=== PATIENT | male | born 1950 | race African-American/Black ===

== ENCOUNTER 2020-07-08 19:41 | Inpatient (IN) | payer BC, MEDICARE ==
[~2020-07-08] VITALS: Ht 167.6 cm; Wt 68.0 kg
[2020-07-08 20:00] VITALS: BP 86/62
[2020-07-08] MEDS ORDERED: Acetaminophen 500mg (ES) tab ORAL ONE (20:05)
[2020-07-08] MEDS ORDERED: Dyna-Hex 2% Top Sol 2oz TOPIC ONE (20:15)
[2020-07-08] MEDS ORDERED: Acetaminophen 650mg/20.3ml GT ONE (20:15)
--- NOTE | 2020-07-08 20:35 | NUR ---
ED Nurse Note: Patient brought into ED by [facility], patient was initially going to [facility], however ambulance personnel had to reroute to the nearest hospital due to patient being unstable. at time of arrival patient was hypotensive, hypoxic and is febrile. presents with 102.7 axillary temp, systolic in the 80s. patient placed in isolation room and attached to bus monitor will continue to monitor
[2020-07-08 20:41] LABS: BASOPHILS % (AUTO) 1.2 % (0.0-2.0); EOSINOPHILS % (AUTO) 0.2 % (0.0-3.0); HEMOGLOBIN 9.7 G/DL (14.2-18.0); LYMPHOCYTES % (AUTO) 22.1 % (20.0-45.0); MEAN CORPUSCULAR VOLUME 79 FL (80-99); MONOCYTES % (AUTO) 5.2 % (1.0-10.0); NEUTROPHILS % (AUTO) 71.3 % (45.0-75.0); PLATELET COUNT 605 K/UL (150-450); RED BLOOD COUNT 4.08 M/UL (4.70-6.10); RED CELL DISTRIBUTION WIDTH 16.6 % (11.6-14.8); WHITE BLOOD COUNT 7.1 K/UL (4.8-10.8)
[2020-07-08 20:43] LABS: APPEARANCE,URINE CLOUDY; BILIRUBIN, URINE NEGATIVE (NEGATIVE); GLUCOSE, URINE (UA) NEGATIVE (NEGATIVE); KETONES,URINE NEGATIVE (NEGATIVE); LEUKOCYTE ESTERASE ,URINE 3+ (NEGATIVE); NITRITE,URINE NEGATIVE (NEGATIVE); PH,URINE 7 (4.5-8.0); PROTEIN,URINE 3+ (NEGATIVE); UROBILINOGEN,URINE NORMAL MG/DL (0.0-1.0)
[2020-07-08 20:48] LABS: COLOR,URINE YELLOW
[2020-07-08 20:50] LABS: ANION GAP 10 mmol/L (5-15); BLOOD UREA NITROGEN 46 mg/dL (7-18); CARBON DIOXIDE 24 MMOL/L (21-32); CHLORIDE 107 MMOL/L (98-107); CREATININE 1.4 MG/DL (0.55-1.30); POTASSIUM 5.4 MMOL/L (3.5-5.1); SODIUM 141 MMOL/L (136-145)
[2020-07-08] MEDS ORDERED: FLUTICASONE PRO16 G1 NASAL (20:55)
[2020-07-08] MEDS ORDERED: MIRALAX17 GM PEG (20:55)
[2020-07-08] MEDS ORDERED: TYLENOL325 M1 GT (20:55)
[2020-07-08] MEDS ORDERED: HEPARIN SO5000 UNIT2 SUBQ (20:55)
[2020-07-08] MEDS ORDERED: TUBERSOL (PPD)0.1 ML IDERMAL (20:55)
[2020-07-08] MEDS ORDERED: HIBICLENS118 ML TP (20:55)
[2020-07-08] MEDS ORDERED: ZOCOR40 MG PEG (20:55)
[2020-07-08] MEDS ORDERED: PROTONIX40 MG GT (20:55)
[2020-07-08] MEDS ORDERED: ISOPTO TEARS15 ML OP (20:55)
[2020-07-08] MEDS ORDERED: LACTULOSE20 GM/301 ORAL (20:55)
[2020-07-08] MEDS ORDERED: FERROUS SULFAT325 MG PEG (20:55)
[2020-07-08 20:58] LABS: INR 1.1 (0.9-1.1)
[2020-07-08 21:07] LABS: ALANINE AMINOTRANSFERASE 65 U/L (12-78); ALBUMIN/GLOBULIN RATIO 0.3 (1.0-2.7); ALKALINE PHOSPHATASE 239 U/L (46-116); ASPARTATE AMINO TRANSFERASE 52 U/L (15-37); BILIRUBIN,TOTAL 0.2 MG/DL (0.2-1.0); FERRITIN 766 NG/ML (8-388); LACTATE DEHYDROGENASE 196 U/L (81-234)
--- NOTE | 2020-07-08 21:35 | Emergency Room Report ---
History of Present Illness General Chief Complaint: Flu Like Symptoms Source: Medical Record (Bishnu Michel MD) Present Illness HPI 69-year-old male presents to ED for evaluation. Brought in by EMS from [facility]. Was supposed be transferred to another hospital for fever but vitals were abnormal so came here. Nonverbal at baseline. Hypoxic on room air. Tachycardic. Febrile. No other aggravating relieving factors. No other associated symptoms (Bishnu Michel MD) Allergies: Coded Allergies: CEFPROZIL (Verified Allergy, Unknown, 07/08/20) COVID-19 Screening Contact w/high risk pt: Yes Experienced COVID-19 symptoms?: Yes COVID-19 Testing performed SAMPLE [employer] ORIGINAL: No COVID-19 Screening: Negative COVID-19 COVID-19 Testing Source: [facility] (Bishnu Michel MD) Patient History Past Medical History: dementia, psych hx, renal disease Past Surgical History: none Pertinent Family History: none Social History: Denies: smoking, alcohol use, drug use Immunizations: UTD Reviewed Nursing Documentation: PMH: Agreed; PSxH: Agreed (Bishnu Michel MD) Review of Systems All Other Systems: limited (Bishnu Michel MD) Physical Exam Vital Signs Date Time Temp Pulse Resp B/P (MAP) Pulse Ox O2 Delivery O2 Flow Rate FiO2 07/08/20 19:49 102.7 117 22 88/61 (70) 90 Nasal Cannula 2.0 Sp02 EP Interpretation: reviewed, normal General Appearance: cachetic, lethargic Head: normocephalic, atraumatic Eyes: bilateral eye normal inspection, bilateral eye PERRL ENT: hearing grossly normal, normal pharynx, no angioedema, normal voice Neck: full range of motion, supple/symm/no masses Respiratory: chest non-tender, lungs clear, normal breath sounds, speaking full sentences Cardiovascular #1: no edema, tachycardia Cardiovascular #2: 2+ carotid (R), 2+ carotid (L), 2+ radial (R), 2+ radial (L), 2+ dorsalis pedis (R), 2+ dorsalis pedis (L) Gastrointestinal: normal bowel sounds, non tender, soft, non-distended, no guarding, no rebound Rectal: deferred Genitourinary: normal inspection, no CVA tenderness Musculoskeletal: back normal, normal range of motion, gait/station normal, non- tender Neurologic: other - nonverbal Psychiatric: other - nonverbal Reflexes: 3+ bicep (R), 3+ bicep (L), 3+ tricep (R), 3+ tricep (L), 3+ knee (R), 3+ knee (L) Skin: other - see nursing notes Lymphatic: no adenopathy (Bishnu Michel MD) Procedures Critical Care Time Critical Care Time Critical care is mandated in this patient who presented with sepsis. Patient require my urgent intervention to attenuate the risks of the metabolic collapse which may lead to cardiovascular collapse and . Critical care time is 35 minutes excluding any reportable procedure. Critical care time included evaluation, multiple reevaluation, looking at old charts, interpreting laboratory and diagnostic data, discussing case with patient and family and consultants, and charting. (Giacomo Castro MD) Medical Decision Making Diagnostic Impression: Primary Impression: Sepsis Qualified Codes: A41.9 - Sepsis, unspecified organism; R65.20 - Severe sepsis without septic shock; N17.9 - Acute kidney failure, unspecified Additional Impressions: UTI (urinary tract infection) Qualified Codes: N30.00 - Acute cystitis without hematuria HCAP (healthcare-associated pneumonia) Laboratory Tests Test 07/08/20 20:10 07/08/20 20:15 Urine Color Yellow Urine Appearance Cloudy Urine pH 7 (4.5-8.0) Urine Specific [place] 1.010 (1.005-1.035) Urine Protein 3+ (NEGATIVE) H Urine Glucose (UA) Negative (NEGATIVE) Urine Ketones Negative (NEGATIVE) Urine Blood 5+ (NEGATIVE) H Urine Nitrite Negative (NEGATIVE) Urine Bilirubin Negative (NEGATIVE) Urine Urobilinogen Normal MG/DL (0.0-1.0) Urine Leukocyte Esterase 3+ (NEGATIVE) H Urine RBC 5-10 /HPF (0 - 0) H Urine WBC Tntc /HPF (0 - 0) H Urine Squamous Epithelial Cells None /LPF (NONE/OCC) Urine Bacteria Many /HPF (NONE) H White Blood Count 7.1 K/UL (4.8-10.8) Red Blood Count 4.08 M/UL (4.70-6.10) L Hemoglobin 9.7 G/DL (14.2-18.0) L Hematocrit 32.0 % (42.0-52.0) L Mean Corpuscular Volume 79 FL (80-99) L Mean Corpuscular Hemoglobin 23.8 PG (27.0-31.0) L Mean Corpuscular Hemoglobin Concent 30.3 G/DL (32.0-36.0) L Red Cell Distribution Width 16.6 % (11.6-14.8) H Platelet Count 605 K/UL (150-450) H Mean Platelet Volume 7.0 FL (6.5-10.1) Neutrophils (%) (Auto) 71.3 % (45.0-75.0) Lymphocytes (%) (Auto) 22.1 % (20.0-45.0) Monocytes (%) (Auto) 5.2 % (1.0-10.0) Eosinophils (%) (Auto) 0.2 % (0.0-3.0) Basophils (%) (Auto) 1.2 % (0.0-2.0) Prothrombin Time 11.9 SEC (9.30-11.50) H Prothromb Time International Ratio 1.1 (0.9-1.1) Activated Partial Thromboplast Time 35 SEC (23-33) H D-Dimer 8.22 mg/L FEU (0.00-0.49) H Sodium Level 141 MMOL/L (136-145) Potassium Level 5.4 MMOL/L (3.5-5.1) H Chloride Level 107 MMOL/L (98-107) Carbon Dioxide Level 24 MMOL/L (21-32) Anion Gap 10 mmol/L (5-15) Blood Urea Nitrogen 46 mg/dL (7-18) H Creatinine 1.4 MG/DL (0.55-1.30) H Estimat Glomerular Filtration Rate > 60 mL/min (>60) Glucose Level 100 MG/DL (74-106) Lactic Acid Level 2.80 mmol/L (0.4-2.0) H Calcium Level 11.0 MG/DL (8.5-10.1) H Ferritin 766 NG/ML (8-388) H Total Bilirubin 0.2 MG/DL (0.2-1.0) Aspartate Amino Transf (AST/SGOT) 52 U/L (15-37) H Alanine Aminotransferase (ALT/SGPT) 65 U/L (12-78) Alkaline Phosphatase 239 U/L (46-116) H Lactate Dehydrogenase 196 U/L (81-234) Troponin I 0.000 ng/mL (0.000-0.056) C-Reactive Protein, Quantitative 26.8 mg/dL (0.00-0.90) H Pro-B-Type Natriuretic Peptide 1639 pg/mL (0-125) H Total Protein 8.4 G/DL (6.4-8.2) H Albumin 2.0 G/DL (3.4-5.0) L Globulin 6.4 g/dL Albumin/Globulin Ratio 0.3 (1.0-2.7) L Lipase 295 U/L (73-393) (Bishnu Michel MD) ER Course This patient was signed out to me. He presents with hypotension and fever. CT scan show a focal patchy consolidation in the posterior left major fissure in the upper lobe. There is questionable spiculated border. This may represent atelectasis/infiltrate versus neoplasm. Patient has [employer] insurance. I discussed the case with Dr. Alvarez for admission. (Giacomo Castro MD) EKG Diagnostic Results Troponin ordered: Yes Rate: tachycardiac Rhythm: NSR ST Segments: no acute changes ASA given to the pt in ED: No (Bishnu Michel MD) Rhythm Strip Diag. Results EP Interpretation: yes Rhythm: NSR, no PVC's, no ectopy (Bishnu Michel MD) Chest X-Ray Diagnostic Results Chest X-Ray Diagnostic Results : Chest X-Ray Ordered: Yes # of Views/Limited/Complete: 1 View Indication: Shortness of Breath EP Interpretation: Yes Interpretation: no consolidation, no effusion, no pneumothorax, no acute cardiopulmonary disease Impression: No acute disease Electronically Signed by: Electronically signed by Bishnu Michel MD (Bishnu Michel MD) CT/MRI/US Diagnostic Results CT/MRI/US Diagnostic Results : Imaging Test Ordered: CT chest Impression Read by radiologist. Focal patchy consolidation left upper lobe. (Giacomo Castro MD) Last Vital Signs Date Time Temp Pulse Resp B/P (MAP) Pulse Ox O2 Delivery O2 Flow Rate FiO2 07/08/20 20:00 102.7 115 22 86/62 90 Nasal Cannula 2.0 Status: improved (Bishnu Michel MD) Status: improved (Giacomo Castro MD) Disposition: ADMITTED INPATIENT Condition: Serious Referrals: LIYA OLIVEIRA [facility],REFERRING (PCP) Bishnu Michel MD Jul 08, 2020 21:35 Giacomo Castro MD Jul 08, 2020 23:52
--- NOTE | 2020-07-08 21:37 | NUR ---
ED Nurse Note: Recvied care from Ramy MCCORMICK. Fluid bolus runnig as ordered. abx running as ordered. Second IV placed.
[2020-07-08] MEDS ORDERED: Omnipaque 350 100ml vial INJ PRN (22:15)
[2020-07-08] MEDS ORDERED: Enoxaparin 100mg Inj SUBQ ONE (22:15)
--- NOTE | 2020-07-08 22:20 | NUR ---
ED Nurse Note: Pt is resting comfortably on 3 LNC. SPO2 above 95%. placed in trendelenburd dt hypotension, bp is normotensive at this time. pt is a/o/1
[2020-07-08 23:01] VITALS: BP 105/75
--- NOTE | 2020-07-08 23:11 | Diagnostic Imaging Report ---
EXAM: CT Angiography Chest With Intravenous Contrast CLINICAL HISTORY: SOB TECHNIQUE: Axial computed tomographic angiography images of the chest with intravenous contrast. CTDI is 31.3 mGy and DLP is 174.6 mGy-cm. One or more of the following dose reduction techniques were used: automated exposure control, adjustment of the mA and/or kV according to patient size, use of iterative reconstruction technique. MIP reconstructed images were created and reviewed. Coronal and sagittal reformatted images were created and reviewed. COMPARISON: No relevant prior studies available. FINDINGS: Pulmonary arteries: No pulmonary embolism. Normal thoracic aorta. Aorta: No acute findings. No thoracic aortic aneurysm. Lungs: Focal patchy consolidation abutting posterior left major fissure on series 13 image 34 in upper lobe with questionable spiculated border may represent rounded atelectasis versus neoplasm. Followup resolution is recommended to rule out neoplastic etiologies. Small amount of peripheral atelectasis. Pleural space: Unremarkable. No significant effusion. No pneumothorax. Heart: Unremarkable. No cardiomegaly. No significant pericardial effusion. No evidence of RV dysfunction. Bones/joints: Osteopenia. No acute fracture. No dislocation. Soft tissues: Unremarkable. Lymph nodes: Unremarkable. No enlarged lymph nodes. Gallbladder and bile ducts: Cholecystectomy clips IMPRESSION: 1. Focal patchy consolidation abutting posterior left major fissure in upper lobe with questionable spiculated border may represent rounded atelectasis versus neoplasm. Followup resolution is recommended to rule out neoplastic etiologies. 2. No pulmonary embolism. Normal thoracic aorta.
[2020-07-08] MEDS ORDERED: Acetaminophen 650 MG SUPP RECTAL PRN (23:45)
[2020-07-08] MEDS ORDERED: Cefepime HCl 1 GM in D5W 55 ML IVPB ONE (23:45)
--- NOTE | 2020-07-08 23:54 | Emergency Room Report ---
Sepsis Event Note Evaluation Current Stage of Sepsis: Sepsis Possible Source: Pulmonary, Genitourinary Focused Exam Allergies: Coded Allergies: CEFPROZIL (Verified Allergy, Unknown, 07/08/20) Date Exam Occurred: Jul 08, 2020 Time Exam Occurred: 23:53 Laboratory Studies Laboratory Tests Test 07/08/20 20:10 07/08/20 20:15 07/08/20 22:00 Urine Color Yellow Urine Appearance Cloudy Urine pH 7 (4.5-8.0) Urine Specific [place] 1.010 (1.005-1.035) Urine Protein 3+ (NEGATIVE) H Urine Glucose (UA) Negative (NEGATIVE) Urine Ketones Negative (NEGATIVE) Urine Blood 5+ (NEGATIVE) H Urine Nitrite Negative (NEGATIVE) Urine Bilirubin Negative (NEGATIVE) Urine Urobilinogen Normal MG/DL (0.0-1.0) Urine Leukocyte Esterase 3+ (NEGATIVE) H Urine RBC 5-10 /HPF (0 - 0) H Urine WBC Tntc /HPF (0 - 0) H Urine Squamous Epithelial Cells None /LPF (NONE/OCC) Urine Bacteria Many /HPF (NONE) H White Blood Count 7.1 K/UL (4.8-10.8) Red Blood Count 4.08 M/UL (4.70-6.10) L Hemoglobin 9.7 G/DL (14.2-18.0) L Hematocrit 32.0 % (42.0-52.0) L Mean Corpuscular Volume 79 FL (80-99) L Mean Corpuscular Hemoglobin 23.8 PG (27.0-31.0) L Mean Corpuscular Hemoglobin Concent 30.3 G/DL (32.0-36.0) L Red Cell Distribution Width 16.6 % (11.6-14.8) H Platelet Count 605 K/UL (150-450) H Mean Platelet Volume 7.0 FL (6.5-10.1) Neutrophils (%) (Auto) 71.3 % (45.0-75.0) Lymphocytes (%) (Auto) 22.1 % (20.0-45.0) Monocytes (%) (Auto) 5.2 % (1.0-10.0) Eosinophils (%) (Auto) 0.2 % (0.0-3.0) Basophils (%) (Auto) 1.2 % (0.0-2.0) Prothrombin Time 11.9 SEC (9.30-11.50) H Prothromb Time International Ratio 1.1 (0.9-1.1) Activated Partial Thromboplast Time 35 SEC (23-33) H D-Dimer 8.22 mg/L FEU (0.00-0.49) H Sodium Level 141 MMOL/L (136-145) Potassium Level 5.4 MMOL/L (3.5-5.1) H Chloride Level 107 MMOL/L (98-107) Carbon Dioxide Level 24 MMOL/L (21-32) Anion Gap 10 mmol/L (5-15) Blood Urea Nitrogen 46 mg/dL (7-18) H Creatinine 1.4 MG/DL (0.55-1.30) H Estimat Glomerular Filtration Rate > 60 mL/min (>60) Glucose Level 100 MG/DL (74-106) Lactic Acid Level 2.80 mmol/L (0.4-2.0) H 1.20 mmol/L (0.66-2.22) Calcium Level 11.0 MG/DL (8.5-10.1) H Ferritin 766 NG/ML (8-388) H Total Bilirubin 0.2 MG/DL (0.2-1.0) Aspartate Amino Transf (AST/SGOT) 52 U/L (15-37) H Alanine Aminotransferase (ALT/SGPT) 65 U/L (12-78) Alkaline Phosphatase 239 U/L (46-116) H Lactate Dehydrogenase 196 U/L (81-234) Troponin I 0.000 ng/mL (0.000-0.056) C-Reactive Protein, Quantitative 26.8 mg/dL (0.00-0.90) H Pro-B-Type Natriuretic Peptide 1639 pg/mL (0-125) H Total Protein 8.4 G/DL (6.4-8.2) H Albumin 2.0 G/DL (3.4-5.0) L Globulin 6.4 g/dL Albumin/Globulin Ratio 0.3 (1.0-2.7) L Lipase 295 U/L (73-393) Vital Signs Last 24 Hour Vital Signs Date Time Temp Pulse Resp B/P (MAP) Pulse Ox O2 Delivery O2 Flow Rate FiO2 07/08/20 23:01 100.0 95 20 105/75 96 Nasal Cannula 3.0 07/08/20 20:00 102.7 115 22 86/62 90 Nasal Cannula 2.0 07/08/20 20:00 117 22 Nasal Cannula 3.0 07/08/20 19:49 102.7 117 22 88/61 (70) 90 Nasal Cannula 2.0 Respiratory Exam: Clear Cardiovascular Exam: RRR Capillary Refill: Less Than 2 Seconds Peripheral Pulse: Strong Pulse Location: Radial Skin Exam: Normal Turgor Giacomo Castro MD Jul 08, 2020 23:54
--- NOTE | 2020-07-09 00:08 | NUR ---
ED Nurse Note: Report given to Cassidy
--- NOTE | 2020-07-09 01:30 | NUR ---
TRANSFER TO FLOOR: Patient transferred to as ordered, per ER MD. Report given to Cassidy MCCORMICK room 211-2. Belongings sent with pt. Transfered with tele monitor, IV fluids running as ordered. RN and fingerprint technician transfered the pt. Vitals stable as documented.
--- NOTE | 2020-07-09 01:32 | NUR ---
NURSE NOTES: Patient received from Toi RN. Patient brought in by Janey. Patient alert but confused, oriented only to name. floor renovator placed, skin issues noted and uploaded. Noted hypotension. Patieng gown placed. On 3L of oxygen via nasal cannula saturation WNL. No s/s of distress. Called Dr. Alvarez for admission orders and responded that he will put them in the morning but received orders for NS bolus 500mls x2 and tylenol. Orders verified and carried out
[2020-07-09 04:00] VITALS: BP 95/54
--- NOTE | 2020-07-09 07:41 | NUR ---
NURSE HAND-OFF REPORT: Important Events on Shift:[Admission, awaiting additional admission orders from Dr. Alvarez, endorsed to morning shift nurse. Hypotension - given 500mls bolus x2] Patient Status: [FC, hypotensive] Diet: [NPO] Pending Orders: [] Pending Results/Labs:[] Pending MD notification:[] Latest Vital Signs: Temperature 99.5 , Pulse 95 , B/P 95 /54 , Respiratory Rate 20 , O2 SAT 100 , Nasal Cannula, O2 Flow Rate 3.0 . Vital Sign Comment: [] EKG Rhythm: Sinus Tachycardia Rhythm change?: N MD Notified?: - MD Response: Latest Randolph Fall Score: 55 Fall Risk: High Risk Safety Measures: Call light Within Reach, Bed Alarm Zone 1, Side Rails Side Rails x1, Bed position Low and Locked. Fall Precautions: Yellow Socks Yellow Gown Door Sign Patient Fall Education Report given to [Jayshree].
--- NOTE | 2020-07-09 07:58 | NUR ---
NURSE NOTES: Report received from Oilva MCCORMICK. Patient seen on rounds, asleep but rousable, on O2 at 3lpm with no signs of acute distress, FLACC score 0. Pt is NPO. GT patent but feeding on hold, awaiting orders from Dr. Alvarez. Polo cath secured and draining. PIV on right hand, left arm and left hand patent and intact. Nurse reports pt received 1 liter NS bolus for hypotension. BP rechecked and now 107/62. Bed low and locked, siderails up x2, zone alarms on 1, will continue to monitor.
[2020-07-09 08:00] VITALS: BP 103/70
--- NOTE | 2020-07-09 08:51 | NUR ---
CASE MANAGEMENT:REVIEW 69YR OLD MALE BIBA FROM [facility] CC: FEVER (102.7), ELEVATED HEART RATE (117) AND DESATURATING (86% ON RA) SI: SEPSIS. PNA. UTI 102.7 117 22 88/61 90% ON 2L/NC H/H-9.7/32.0 K+5.4 BUN+46 CR+1.4 CRP+26.9 BNP+1639 IS: O2 INCREASED TO 3L/NC 1L NS BOLUS X2 IV LEVAQUIN LOVENOX SQ CXR BLOOD CX CTA CHEST NOVEL COVID 19 : TO TELEMETRY DCP: FROM [facility]
--- NOTE | 2020-07-09 09:30 | NUR ---
NURSE NOTES: Charge evie Gomez confirmed receipt of Covid PCR specimen with microbiology. Will endorse to next shift.
--- NOTE | 2020-07-09 10:09 | Cardiology Progress Note ---
Assessment/Plan Status: stable Status Narrative Echo pending to assess LV function. Pt in sinus tach at admission, improved now after IV hydration. Further recs to follow. Assessment/Plan 1. PNA and developing sepsis 2. CHF - echo pending 3. Dehydration and electrolyte imbalance 4. Sinus tachycardia 5. Anemia 6. UTI 7. Aphasia 8. Dementia and h/o psych disorder Subjective ROS Limited/Unobtainable: Yes Subjective CARDIOLOGY CONSULT 69-year-old male presents to ED for evaluation. Brought in by EMS from nursing home facility. PMHx dementia, psych disorder, CKD, anemia, HF, former smoker, h/o CVA. Nonverbal at baseline. Hypoxic on room air. Tachycardic. Febrile. Covid PCR still pending. BNP elevated, troponin negative. We are asked to see the pt for evaluation of cardiac issues. Objective Last 24 Hour Vital Signs Date Time Temp Pulse Resp B/P (MAP) Pulse Ox O2 Delivery O2 Flow Rate FiO2 07/09/20 09:00 Nasal Cannula 3.0 07/09/20 08:00 95 07/09/20 08:00 100.2 101 20 103/70 (81) 100 07/09/20 04:00 95 07/09/20 04:00 99.5 100 20 95/54 (68) 100 07/09/20 01:32 Nasal Cannula 3.0 07/09/20 00:45 99.0 103 18 102/76 97 Nasal Cannula 3.0 07/08/20 23:01 100.0 95 20 105/75 96 Nasal Cannula 3.0 07/08/20 20:00 102.7 115 22 86/62 90 Nasal Cannula 2.0 07/08/20 20:00 117 22 Nasal Cannula 3.0 07/08/20 19:49 102.7 117 22 88/61 (70) 90 Nasal Cannula 2.0 General Appearance: no apparent distress EENT: PERRL/EOMI Neck: no JVD Rhythm: NSR Cardiovascular: regular rhythm, tachycardia Respiratory/Chest: no respiratory distress, no accessory muscle use Abdomen: soft Neurologic: disoriented Intake and Output 0 07/08/20 07/09/20 19:00 07:00 Output Total 400 ml Balance -400 ml Output Urine Total 400 ml # Voids 2 # Bowel Movements 1 Laboratory Tests Test 07/08/20 20:10 07/08/20 20:15 07/08/20 22:00 Urine Color Yellow Urine Appearance Cloudy Urine pH 7 (4.5-8.0) Urine Specific [place] 1.010 (1.005-1.035) Urine Protein 3+ (NEGATIVE) H Urine Glucose (UA) Negative (NEGATIVE) Urine Ketones Negative (NEGATIVE) Urine Blood 5+ (NEGATIVE) H Urine Nitrite Negative (NEGATIVE) Urine Bilirubin Negative (NEGATIVE) Urine Urobilinogen Normal MG/DL (0.0-1.0) Urine Leukocyte Esterase 3+ (NEGATIVE) H Urine RBC 5-10 /HPF (0 - 0) H Urine WBC Tntc /HPF (0 - 0) H Urine Squamous Epithelial Cells None /LPF (NONE/OCC) Urine Bacteria Many /HPF (NONE) H White Blood Count 7.1 K/UL (4.8-10.8) Red Blood Count 4.08 M/UL (4.70-6.10) L Hemoglobin 9.7 G/DL (14.2-18.0) L Hematocrit 32.0 % (42.0-52.0) L Mean Corpuscular Volume 79 FL (80-99) L Mean Corpuscular Hemoglobin 23.8 PG (27.0-31.0) L Mean Corpuscular Hemoglobin Concent 30.3 G/DL (32.0-36.0) L Red Cell Distribution Width 16.6 % (11.6-14.8) H Platelet Count 605 K/UL (150-450) H Mean Platelet Volume 7.0 FL (6.5-10.1) Neutrophils (%) (Auto) 71.3 % (45.0-75.0) Lymphocytes (%) (Auto) 22.1 % (20.0-45.0) Monocytes (%) (Auto) 5.2 % (1.0-10.0) Eosinophils (%) (Auto) 0.2 % (0.0-3.0) Basophils (%) (Auto) 1.2 % (0.0-2.0) Prothrombin Time 11.9 SEC (9.30-11.50) H Prothromb Time International Ratio 1.1 (0.9-1.1) Activated Partial Thromboplast Time 35 SEC (23-33) H D-Dimer 8.22 mg/L FEU (0.00-0.49) H Sodium Level 141 MMOL/L (136-145) Potassium Level 5.4 MMOL/L (3.5-5.1) H Chloride Level 107 MMOL/L (98-107) Carbon Dioxide Level 24 MMOL/L (21-32) Anion Gap 10 mmol/L (5-15) Blood Urea Nitrogen 46 mg/dL (7-18) H Creatinine 1.4 MG/DL (0.55-1.30) H Estimat Glomerular Filtration Rate > 60 mL/min (>60) Glucose Level 100 MG/DL (74-106) Lactic Acid Level 2.80 mmol/L (0.4-2.0) H 1.20 mmol/L (0.66-2.22) Calcium Level 11.0 MG/DL (8.5-10.1) H Ferritin 766 NG/ML (8-388) H Total Bilirubin 0.2 MG/DL (0.2-1.0) Aspartate Amino Transf (AST/SGOT) 52 U/L (15-37) H Alanine Aminotransferase (ALT/SGPT) 65 U/L (12-78) Alkaline Phosphatase 239 U/L (46-116) H Lactate Dehydrogenase 196 U/L (81-234) Troponin I 0.000 ng/mL (0.000-0.056) C-Reactive Protein, Quantitative 26.8 mg/dL (0.00-0.90) H Pro-B-Type Natriuretic Peptide 1639 pg/mL (0-125) H Total Protein 8.4 G/DL (6.4-8.2) H Albumin 2.0 G/DL (3.4-5.0) L Globulin 6.4 g/dL Albumin/Globulin Ratio 0.3 (1.0-2.7) L Lipase 295 U/L (73-393) Vanessa Edouard PA-C Jul 09, 2020 10:09
[2020-07-09] MEDS ORDERED: Acetaminophen 650mg/20.3ml GT PRN (10:15)
[2020-07-09] MEDS ORDERED: LACTULOSE10 GM/153 PEG (11:00)
[2020-07-09] MEDS ORDERED: PANTOPRAZOLE SO40 M2 PEG (11:00)
[2020-07-09] MEDS ORDERED: PERIDEX15 ML MM (11:00)
[2020-07-09] MEDS ORDERED: ACETAMINOPHEN325 M1 PEG (11:00)
[2020-07-09] MEDS: D5 1/2NS 1,000 ML IV SCH ×2 (11:49→23:54)
[2020-07-09] MEDS: Piperacillin/Tazobactam 3.375 GM in NS 110 ML IVPB SCH ×2 (11:52→21:27)
[2020-07-09 12:00] VITALS: BP 103/59
--- NOTE | 2020-07-09 14:15 | Diagnostic Imaging Report ---
Indication: Shortness of breath Technique: One view of the chest Comparison: none Findings: Lungs and pleural spaces are clear. Heart size is normal. Impression: No acute process
--- NOTE | 2020-07-09 14:49 | Consultation ---
Consult Note Consult Note I am asked to evaluate the patient at the request of Dr. Alvarez for renal failure and abnormal electrolytes Patient seen in room 211 Patient examined, data reviewed Emergency room note: Chief Complaint: Flu Like Symptoms 69-year-old male presents to ED for evaluation. [facility]. Was supposed be transferred to another hospital for fever but vitals were abnormal so came here. Nonverbal at baseline. Hypoxic on room air. Tachycardic. Febrile. No other aggravating relieving factors. No other associated symptoms Allergies: CEFPROZIL (Verified Allergy, Unknown, 07/08/20) COVID-19 Screening Contact w/high risk pt: Yes Experienced COVID-19 symptoms?: Yes COVID-19 Testing performed SPARKER AND PATCHER: No COVID-19 Screening: Negative COVID-19 COVID-19 Testing Source: [facility] Past Medical History: dementia, psych hx, renal disease Past Surgical History: none Vital Signs Date Time Temp Pulse Resp B/P (MAP) Pulse Ox O2 Delivery O2 Flow Rate FiO2 07/08/20 19:49 102.7 117 22 88/61 (70) 90 Nasal Cannula 2.0 PHYSICAL EXAMINATION: VITAL SIGNS: Temperature of 99.5, T-max of 100.2, pulse of 100, respiratory rate 19, blood pressure 113/64, O2 saturation of 100%. HEENT: Pupils are equally reactive to light and accommodation. Mouth appears clean without thrush. NECK: Supple. No adenopathy. No JVD. CARDIOVASCULAR: Regular rate and rhythm. No murmurs. LUNGS: Clear to auscultation bilaterally. No crackles. No wheezes. ABDOMEN: Soft, nontender. No organomegaly. EXTREMITIES: No cyanosis, no clubbing, no edema. LABS: White count 8.3, hemoglobin 9.2, hematocrit 29.1, MCV 80, platelet count of 434, neutrophils of 64%. Sodium 136, potassium 4.5, chloride 106, bicarb 21, BUN 21, creatinine 1, glucose 137, calcium 9.8. Total bilirubin 0.3. AST 36, ALT 34, alkaline phosphatase 187, total protein 6.6, albumin 1.7. UA is showing too numerous to count white cells. COVID-19 test is negative on July 09, 2020. Rectal swab was negative for VRE. Nasal swab was positive for MRSA. Urine culture is growing E. coli, susceptible to ceftriaxone, Levaquin, meropenem, piperacillin and tazobactam. On 07/08/2020, blood cultures are negative. Chest x-ray showed no acute process. CT chest angiogram showed focal patchy consolidation, possible atelectasis. No pulmonary embolism. . Assessment/Plan Acute renal failure Dehydration, hypercalcemia Hyperkalemia Anemia, low MCV Sepsis, UTI, healthcare associated pneumonia Plan: Slow hydrate Monitor renal parameters and electrolytes Anemia work-up Antibiotics Avoid nephrotoxic's Monitor urine output Per orders Kyaw Leal MD Jul 09, 2020 14:49
--- NOTE | 2020-07-09 15:12 | NUR ---
NURSE NOTES: WOUND CARE NOTES:Pt presented on admission with Contractures, Multiple Pressure Injuries .Pt is receiving Oxygen via NC. Both ears assessed and no evidence of Skin Breakdown noted. Full Thickness Pressure Injury L Buttocks (L)1.5cm x (W)1.4cm x (D) 0.2cm. Base of wound is 90% moist,sonia;10% slough. Non-Blanchable erythema along borders and periwound. DTPI Sacrococcygeal area (L)1.5cm x (W)0.8cm. Base of wound is maroon and indurated with surrounding non-blanchable erythema. DTPI L Trochanter(L)1.5cm x (W)0.8cm. Base of Pressure Injury is maroon and indurated.Surrounding Non-Blanchable erythema with delineated margins(L)8.5cm x (W)9cm. Unstageable Pressure Injury Plantar R Heel (L)2.5cm x (W)1.4cm. Stable dry eschar noted. Periwound is blanchable. Non-Blanchable erythema with fluctuance medial R Malleolus (L)4.5cm x (W)3cm. DTPI R Hallux (L)3cm x (W)2.4cm. Base of Pressure Injury is maroon and fluctuant. DTPI L lateral Malleolus(L)3cm x (W)3.5cm. Base of Pressure Injury is maroon and fluctuant. Tx.Plan:Cleanse wound L Buttocks with Saline. Apply TheraHoney. Apply Moisture Barrier Periwound. Cover with Optifoam drsg. Change Daily and prn. Apply Triad Paste to Sacrum. Cover with Optifoam drsg. Change every 3 days and prn. Apply Cavilon Skin Barrier to R and L trochanteric. Cover each site with Optifoam drsgs Change every 7 days and PRN. Apply Cavilon Skin BArrier to L Heel,Malleoli,Hallux. Cover each site with Optifoam drsgs. Change every 7 days and prn. Apply Cavilon Skin BArrier to R Heel , Malleoli ,Hallux. Cover each site with Optifoam drsgs. Change every 7 days and prn. Reposition at least every 2hours or as tolerated. Off-load heels with Pillow. APM/MARIA Mattress Overlay.
[2020-07-09 16:00] VITALS: BP 108/67
--- NOTE | 2020-07-09 16:35 | Consultation ---
History of Present Illness General Date patient seen: Jul 09, 2020 Reason for Hospitalization: Flu Like Symptoms Present Illness HPI 69-year-old male presented to ED at [facility] [place] for evaluation. Brought in by EMS from care home facility. Noted to be febrile and abnormal labs. Nonverbal at baseline. Hypoxic on room air. Tachycardic. Febrile. No other aggravating relieving factors. No other associated symptoms. admitted for care and management. noted to have decubitus skin ulcers, malnutrition, and requiring care. surgery called to evaluate. Allergies: Coded Allergies: CEFPROZIL (Verified Allergy, Unknown, 07/08/20) COVID-19 Screening Contact w/high risk pt: Yes Experienced COVID-19 symptoms?: Yes Coronavirus symptoms experienc: Fever (T>100.4F or >38C), Shortness of Breath Medication History Scheduled Chlorhexidine Gluconate (Peridex), 15 ML MM BID, (Reported) Ferrous Sulfate* (Ferrous Sulfate*), 325 MG PEG DAILY, (Reported) Heparin Sod (Porcine) (Heparin Sodium*), 5,000 UNITS SUBQ EVERY 12 HOURS, (Reported) Pantoprazole Sodium (Pantoprazole Sodium), 40 MG PEG DAILY, (Reported) Polyethylene Glycol* (Miralax*), 17 GM PEG BID, (Reported) Simvastatin (Zocor), 40 MG PEG BEDTIME, (Reported) Scheduled PRN Acetaminophen* (Acetaminophen 325MG Tablet*), 650 MG PEG ONCE PRN for ELEVATED TEMPERATURE, (Reported) Fluticasone Propionate* (Fluticasone Propionate*), 1 SPRAY NASAL TWICE A DAY PRN for ALLERGIES, (Reported) Hypromellose (Isopto Tears), 2 DROP OP Q6HR PRN for Dry Eyes, (Reported) Lactulose (Lactulose), 30 ML PEG DAILY PRN for Constipation, (Reported) Discontinued Medications Chlorhexidine Gluconate* (Hibiclens*), 118 ML TP, (Reported) Discontinued Reason: Prescription changed Lactulose (Lactulose*), 30 ML ORAL, (Reported) Discontinued Reason: Prescription changed Pantoprazole* (Protonix*), 40 MG GT DAILY, (Reported) Discontinued Reason: Prescription changed Tuberculin Ppd (Tubersol), 0.1 ML IDERMAL, (Reported) Discontinued Reason: Therapy completed Patient History Limited by: medical condition History Provided By: Medical Record, PMD Healthcare decision maker Resuscitation status Advanced Directive on File Past Medical/Surgical History Past Medical/Surgical History: (1) HCAP (healthcare-associated pneumonia) (2) Sepsis (3) UTI (urinary tract infection) Review of Systems Review of Symptoms General ROS: no weight loss or fever Psychological ROS: no depression or mood changes, no memory loss Ophthalmic ROS: no visual changes or eye irritation ENT ROS: no nasal congestion, hearing loss, dizziness Allergy and Immunology ROS: no allergic symptoms or urticaria Hematological and Lymphatic ROS: no swollen glands, unusual bleeding or bruising Endocrine ROS: no polyuria, polydipsia, weight changes, temperature intolerance Respiratory ROS: no cough, shortness of breath, or wheezing Cardiovascular ROS: no chest pain or dyspnea on exertion Gastrointestinal ROS: denies abdominal pain, bright red blood in stool. Musculoskeletal ROS: no myalgias or arthralgias Neurological ROS: no TIA or stroke symptoms Dermatological ROS: no new or changing skin lesions, rashes or pruritis limited given condition Physical Exam Physical Exam General appearance: mild distress, appears stated age Head: Normocephalic, without obvious abnormality, atraumatic Eyes: conjunctivae/corneas clear. PERRL, EOM's intact. Fundi benign Throat: Lips, mucosa, and tongue normal. Teeth and gums normal Neck: supple, symmetrical, trachea midline, no adenopathy, thyroid: not enlarged, symmetric, no tenderness/mass/nodules, no carotid bruit and no JVD Lungs: clear to auscultation bilaterally Heart: regular rate and rhythm, S1, S2 normal, no murmur, click, rub or gallop Abdomen: soft, non-tender. Bowel sounds normal. No masses, no organomegaly Extremities: extremities normal, atraumatic, no cyanosis or edema Pulses: 2+ and symmetric Skin: Skin see below Neurologic: Grossly normal Last 24 Hour Vital Signs Date Time Temp Pulse Resp B/P (MAP) Pulse Ox O2 Delivery O2 Flow Rate FiO2 07/09/20 16:00 98.6 97 20 108/67 (81) 99 07/09/20 12:00 99.5 96 20 103/59 (74) 99 07/09/20 12:00 99 07/09/20 09:00 Nasal Cannula 3.0 07/09/20 08:00 95 07/09/20 08:00 100.2 101 20 103/70 (81) 100 07/09/20 04:00 95 07/09/20 04:00 99.5 100 20 95/54 (68) 100 07/09/20 01:32 Nasal Cannula 3.0 07/09/20 00:45 99.0 103 18 102/76 97 Nasal Cannula 3.0 07/08/20 23:01 100.0 95 20 105/75 96 Nasal Cannula 3.0 07/08/20 20:00 102.7 115 22 86/62 90 Nasal Cannula 2.0 07/08/20 20:00 117 22 Nasal Cannula 3.0 07/08/20 19:49 102.7 117 22 88/61 (70) 90 Nasal Cannula 2.0 Intake and Output 07/08/20 07/09/20 19:00 07:00 Output Total 400 ml Balance -400 ml Output Urine Total 400 ml # Voids 2 # Bowel Movements 1 Laboratory Tests Test 07/08/20 20:10 07/08/20 20:15 07/08/20 22:00 Urine Color Yellow Urine Appearance Cloudy Urine pH 7 (4.5-8.0) Urine Specific [place] 1.010 (1.005-1.035) Urine Protein 3+ (NEGATIVE) H Urine Glucose (UA) Negative (NEGATIVE) Urine Ketones Negative (NEGATIVE) Urine Blood 5+ (NEGATIVE) H Urine Nitrite Negative (NEGATIVE) Urine Bilirubin Negative (NEGATIVE) Urine Urobilinogen Normal MG/DL (0.0-1.0) Urine Leukocyte Esterase 3+ (NEGATIVE) H Urine RBC 5-10 /HPF (0 - 0) H Urine WBC Tntc /HPF (0 - 0) H Urine Squamous Epithelial Cells None /LPF (NONE/OCC) Urine Bacteria Many /HPF (NONE) H White Blood Count 7.1 K/UL (4.8-10.8) Red Blood Count 4.08 M/UL (4.70-6.10) L Hemoglobin 9.7 G/DL (14.2-18.0) L Hematocrit 32.0 % (42.0-52.0) L Mean Corpuscular Volume 79 FL (80-99) L Mean Corpuscular Hemoglobin 23.8 PG (27.0-31.0) L Mean Corpuscular Hemoglobin Concent 30.3 G/DL (32.0-36.0) L Red Cell Distribution Width 16.6 % (11.6-14.8) H Platelet Count 605 K/UL (150-450) H Mean Platelet Volume 7.0 FL (6.5-10.1) Neutrophils (%) (Auto) 71.3 % (45.0-75.0) Lymphocytes (%) (Auto) 22.1 % (20.0-45.0) Monocytes (%) (Auto) 5.2 % (1.0-10.0) Eosinophils (%) (Auto) 0.2 % (0.0-3.0) Basophils (%) (Auto) 1.2 % (0.0-2.0) Prothrombin Time 11.9 SEC (9.30-11.50) H Prothromb Time International Ratio 1.1 (0.9-1.1) Activated Partial Thromboplast Time 35 SEC (23-33) H D-Dimer 8.22 mg/L FEU (0.00-0.49) H Sodium Level 141 MMOL/L (136-145) Potassium Level 5.4 MMOL/L (3.5-5.1) H Chloride Level 107 MMOL/L (98-107) Carbon Dioxide Level 24 MMOL/L (21-32) Anion Gap 10 mmol/L (5-15) Blood Urea Nitrogen 46 mg/dL (7-18) H Creatinine 1.4 MG/DL (0.55-1.30) H Estimat Glomerular Filtration Rate > 60 mL/min (>60) Glucose Level 100 MG/DL (74-106) Lactic Acid Level 2.80 mmol/L (0.4-2.0) H 1.20 mmol/L (0.66-2.22) Calcium Level 11.0 MG/DL (8.5-10.1) H Ferritin 766 NG/ML (8-388) H Total Bilirubin 0.2 MG/DL (0.2-1.0) Aspartate Amino Transf (AST/SGOT) 52 U/L (15-37) H Alanine Aminotransferase (ALT/SGPT) 65 U/L (12-78) Alkaline Phosphatase 239 U/L (46-116) H Lactate Dehydrogenase 196 U/L (81-234) Troponin I 0.000 ng/mL (0.000-0.056) C-Reactive Protein, Quantitative 26.8 mg/dL (0.00-0.90) H Pro-B-Type Natriuretic Peptide 1639 pg/mL (0-125) H Total Protein 8.4 G/DL (6.4-8.2) H Albumin 2.0 G/DL (3.4-5.0) L Globulin 6.4 g/dL Albumin/Globulin Ratio 0.3 (1.0-2.7) L Lipase 295 U/L (73-393) Height (Feet): 5 Height (Inches): 6.00 Weight (Pounds): 150 Medications Current Medications Medications (Trade) Dose Ordered Sig/Giovanny Route PRN Reason Start Time Stop Time Status Last Admin Dose Admin Acetaminophen (Tylenol) 650 mg Q4H PRN GT Mild Pain (Pain Scale 1-3) 07/09/20 10:15 08/08/20 10:14 Acetaminophen (Tylenol) 650 mg Q6H PRN GT Temp >100.5 07/09/20 01:30 08/08/20 01:29 Dextrose (Dextrose 50%) 25 ml Q30M PRN IV Hypoglycemia 07/09/20 10:15 10/07/20 10:14 Dextrose (Dextrose 50%) 50 ml Q30M PRN IV Hypoglycemia 07/09/20 10:15 10/07/20 10:14 Dextrose/Sodium Chloride 1,000 ml @ 75 mls/hr [id number] IV 07/09/20 10:15 08/08/20 10:14 07/09/20 11:49 Heparin Sodium (Porcine) (Heparin 5000 units/ml) 5,000 units EVERY 12 HOURS SUBQ 07/09/20 21:00 08/23/20 20:59 Levofloxacin 100 ml @ 100 mls/hr Q24H IVPB 07/09/20 12:00 07/16/20 11:59 07/09/20 11:52 Pantoprazole (Protonix) 40 mg EVERY 12 HOURS IVP 07/09/20 21:00 08/08/20 20:59 Piperacillin Sod/ Tazobactam Sod 3.375 gm/Sodium Chloride 110 ml @ 27.5 mls/hr EVERY 8 HOURS IVPB 07/09/20 12:00 07/16/20 11:59 07/09/20 11:52 Assessment/Plan Problem List: (1) Decubitus skin ulcer Assessment & Plan: Pt presented on admission with Contractures, Multiple Pressure Injuries .Pt is receiving Oxygen via NC. Both ears assessed and no evidence of Skin Breakdown noted. Full Thickness stage 4Pressure Injury L Buttocks (L)1.5cm x (W)1.4cm x (D) 0.2cm. Base of wound is 90% moist,sonia;10% slough. Non-Blanchable erythema along borders and periwound. DTPI Sacrococcygeal area (L)1.5cm x (W)0.8cm. Base of wound is maroon and indurated with surrounding non-blanchable erythema. DTPI L Trochanter(L)1.5cm x (W)0.8cm. Base of Pressure Injury is maroon and indurated.Surrounding Non-Blanchable erythema with delineated margins(L)8.5cm x (W)9cm. Unstageable Pressure Injury Plantar R Heel (L)2.5cm x (W)1.4cm. Stable dry eschar noted. Periwound is blanchable. Non-Blanchable erythema with fluctuance medial R Malleolus (L)4.5cm x (W)3cm. DTPI R Hallux (L)3cm x (W)2.4cm. Base of Pressure Injury is maroon and fluctuant. DTPI L lateral Malleolus(L)3cm x (W)3.5cm. Base of Pressure Injury is maroon and fluctuant. Tx.Plan: Cleanse wound L Buttocks with Saline. Apply TheraHoney. Apply Moisture Barrier Periwound. Cover with Optifoam drsg. Change Daily and prn. Apply Triad Paste to Sacrum. Cover with Optifoam drsg. Change every 3 days and prn. Apply Cavilon Skin Barrier to R and L trochanteric. Cover each site with Optifoam drsgs Change every 7 days and PRN. Apply Cavilon Skin BArrier to L Heel,Malleoli,Hallux. Cover each site with Optifoam drsgs. Change every 7 days and prn. Apply Cavilon Skin BArrier to R Heel , Malleoli ,Hallux. Cover each site with Optifoam drsgs. Change every 7 days and prn. Reposition at least every 2hours or as tolerated. Off-load heels with Pillow. APM/MARIA Mattress Overlay. ICD Codes: L89.90 - Pressure ulcer of unspecified site, unspecified stage SNOMED: 971097762 (2) HCAP (healthcare-associated pneumonia) ICD Codes: J18.9 - Pneumonia, unspecified organism SNOMED: 219656076, 629523568 (3) Sepsis Assessment & Plan: lactic acidosis, elevated lft's abnormal labs renal insufficiency hypoxia -renal input appreciated -O2 supplement cxr noted cont abx steroids trend labs fluids thank you ICD Codes: A41.9 - Sepsis, unspecified organism SNOMED: 07500278 Qualifiers: Qualified Codes: A41.9 - Sepsis, unspecified organism; R65.20 - Severe sepsis without septic shock; N17.9 - Acute kidney failure, unspecified (4) UTI (urinary tract infection) ICD Codes: N39.0 - Urinary tract infection, site not specified SNOMED: 47966176 Qualifiers: Qualified Codes: N30.00 - Acute cystitis without hematuria Saleem Juan Jul 09, 2020 16:35
--- NOTE | 2020-07-09 19:03 | NUR ---
NURSE HAND-OFF REPORT: Important Events on Shift: PUI pending PCR, no fevers, given Albumin IV 500ml, wound evaluation done, new consult with Dr. Juan Patient Status: Stable Diet: Jevity 1.2 @40ml/hr Pending Orders: N Pending Results/Labs: Labs in AM Pending MD notification: N Latest Vital Signs: Temperature 98.6 , Pulse 97 , B/P 108 /67 , Respiratory Rate 20 , O2 SAT 99 , Nasal Cannula, O2 Flow Rate 3.0 . Vital Sign Comment: EKG Rhythm: Sinus Rhythm Rhythm change?: N MD Notified?: - MD Response: Latest Randolph Fall Score: 70 Fall Risk: High Risk Safety Measures: Call light Within Reach, Bed Alarm Zone 1, Side Rails Side Rails x2, Bed position Low and Locked. Fall Precautions: Yellow Socks Yellow Gown Door Sign Patient Fall Education Report given to Jacqueline MCCORMICK.
--- NOTE | 2020-07-09 19:42 | NUR ---
NURSE NOTES: Patient in bed, awake and confused. On nasal cannula w/O2 at 3L; no signs of distress or SOB. G-tube in place and running as ordered. Polo cath in place and draining to gravity. IV intact and patent. Bed locked and in lowest position. HOB elevated. Call light within reach. Will continue plan of care.
[2020-07-09 20:00] VITALS: BP 112/65
[2020-07-09] MEDS ORDERED: Heparin 5000 units/ml inj SUBQ SCH (21:00)
[2020-07-09] MEDS: Pantoprazole Inj IVP SCH (21:25)
[2020-07-09 23:55] VITALS: BP 107/68
[2020-07-10 04:00] VITALS: BP 100/67
[2020-07-10] MEDS: Piperacillin/Tazobactam 3.375 GM in NS 110 ML IVPB SCH ×2 (06:17→22:09)
[2020-07-10 06:23] LABS: HEMATOCRIT 20.8 % (42.0-52.0); MEAN CORPUSCULAR VOLUME 79 FL (80-99); PLATELET COUNT 363 K/UL (150-450); RED BLOOD COUNT 2.63 M/UL (4.70-6.10); RED CELL DISTRIBUTION WIDTH 16.6 % (11.6-14.8); WHITE BLOOD COUNT 6.1 K/UL (4.8-10.8)
--- NOTE | 2020-07-10 06:35 | NUR ---
NURSE HAND-OFF REPORT: Important Events on Shift: No acute events; weaned O2 down to 2L - O2 95-100% Patient Status: Stable Diet: Jevity 1.2 Pending Orders: N/A Pending Results/Labs: AM labs Pending MD notification:N/A Latest Vital Signs: Temperature 98.8 , Pulse 95 , B/P 100 /67 , Respiratory Rate 18 , O2 SAT 100 , Nasal Cannula, O2 Flow Rate 3.0 . Vital Sign Comment: N/A EKG Rhythm: Sinus Rhythm Rhythm change?: N MD Notified?: - MD Response: Latest Randolph Fall Score: 70 Fall Risk: High Risk Safety Measures: Call light Within Reach, Bed Alarm Zone 1, Side Rails Side Rails x2, Bed position Low and Locked. Fall Precautions: Yellow Socks Yellow Gown Door Sign Patient Fall Education Addendum: 07/10/20 at 0748 by RAJESH OSORIO RN Report given to ANNY Louise
[2020-07-10 06:53] LABS: HEMOGLOBIN 6.5 G/DL (14.2-18.0)
[2020-07-10 06:58] LABS: ALANINE AMINOTRANSFERASE 45 U/L (12-78); ALBUMIN 1.8 G/DL (3.4-5.0); ALBUMIN/GLOBULIN RATIO 0.4 (1.0-2.7); ALKALINE PHOSPHATASE 166 U/L (46-116); ANION GAP 12 mmol/L (5-15); ASPARTATE AMINO TRANSFERASE 49 U/L (15-37); BILIRUBIN,TOTAL < 0.1 MG/DL (0.2-1.0); BLOOD UREA NITROGEN 27 mg/dL (7-18); CALCIUM 9.9 MG/DL (8.5-10.1); CARBON DIOXIDE 19 MMOL/L (21-32); CHLORIDE 110 MMOL/L (98-107); CHOLESTEROL 91 MG/DL (< 200); CREATINE KINASE 76 U/L (26-308); CREATININE 1.1 MG/DL (0.55-1.30); FERRITIN 960 NG/ML (8-388); HDL CHOLESTEROL 23 MG/DL (40-60); PHOSPHORUS 3.6 MG/DL (2.5-4.9); POTASSIUM 3.3 MMOL/L (3.5-5.1); SODIUM 141 MMOL/L (136-145); TRIGLYCERIDES 137 MG/DL (30-150)
--- NOTE | 2020-07-10 06:59 | NUR ---
NURSE NOTES: Patient's HGB 6.5 and HCT 20.8 this morning. Left message for Dr. Alvarez/SHYANNE Hansen. Awaiting call back for orders.
[2020-07-10 07:04] LABS: % IRON SATURATION 13 % (15-50); IRON 16 ug/dL (50-175); TOTAL IRON BINDING CAPACITY 126 ug/dL (250-450)
[2020-07-10 07:11] LABS: GAMMA GLUTAMYL TRANSPEPTIDASE 51 U/L (5-85)
--- NOTE | 2020-07-10 07:20 | NUR ---
NURSE NOTES: Patient's potassium 3.3 this morning. Left message for Dr. Alvarez/SHYANNE Hansen. Awaiting Call back. Addendum: 07/10/20 at 0747 by RAJESH OSORIO RN And message left for Dr. Leal. Endorsed to AM nurse Mohinder Louise RN
[2020-07-10 08:00] VITALS: BP 121/67
--- NOTE | 2020-07-10 08:31 | Pulmonology Progress Note ---
Subjective ROS Limited/Unobtainable: No Interval Events: Hgb acutely low Constitutional: Reports: no symptoms HEENT: Repors: no symptoms Respiratory: Reports: no symptoms Cardiovascular: Reports: no symptoms Gastrointestinal/Abdominal: Reports: no symptoms Allergies: Coded Allergies: CEFPROZIL (Verified Allergy, Unknown, 07/08/20) Objective Last 24 Hour Vital Signs Date Time Temp Pulse Resp B/P (MAP) Pulse Ox O2 Delivery O2 Flow Rate FiO2 07/10/20 04:00 98.8 95 18 100/67 (78) 100 07/10/20 03:15 93 07/09/20 23:55 98.1 94 18 107/68 (81) 100 07/09/20 23:30 90 07/09/20 21:00 Nasal Cannula 3.0 07/09/20 20:00 93 07/09/20 20:00 98.6 94 18 112/65 (81) 100 07/09/20 16:00 97 07/09/20 16:00 98.6 97 20 108/67 (81) 99 07/09/20 12:00 99.5 96 20 103/59 (74) 99 07/09/20 12:00 99 07/09/20 09:00 Nasal Cannula 3.0 Intake and Output 07/09/20 07/10/20 19:00 07:00 Intake Total 200 ml 40 ml Output Total 650 ml 1100 ml Balance -450 ml -1060 ml Intake Tube Feeding 200 ml 40 ml Output Urine Total 650 ml 1100 ml # Bowel Movements 2 1 General Appearance: no acute distress HEENT: atraumatic Respiratory: lungs clear Cardiovascular: normal rate Abdomen: soft, non tender Laboratory Tests 07/09/20 15:06: Urine Random Sodium 129H 07/10/20 04:40: White Blood Count 6.1, Red Blood Count 2.63L, Hemoglobin 6.5#*L, Hematocrit 20.8#L, Mean Corpuscular Volume 79L, Mean Corpuscular Hemoglobin 24.6L, Mean Corpuscular Hemoglobin Concent 31.0L, Red Cell Distribution Width 16.6H, Platelet Count 363, Mean Platelet Volume 6.5, Neutrophils (%) (Auto) , Lymphocytes (%) (Auto) , Monocytes (%) (Auto) , Eosinophils (%) (Auto) , Basophils (%) (Auto) , Neutrophils % (Manual) [Pending], Lymphocytes % (Manual) [Pending], Platelet Estimate [Pending], Platelet Morphology [Pending], Sodium Level 141, Potassium Level 3.3L, Chloride Level 110H, Carbon Dioxide Level 19L, Anion Gap 12, Blood Urea Nitrogen 27H, Creatinine 1.1, Estimat Glomerular Filtration Rate > 60, Glucose Level 105, Hemoglobin A1c 5.0, Uric Acid 4.3, Calcium Level 9.9, Phosphorus Level 3.6, Magnesium Level 2.0, Iron Level 16L, Total Iron Binding Capacity 126L, Percent Iron Saturation 13L, Unsaturated Iron Binding 110L, Ferritin 960H, Total Bilirubin < 0.1L, Gamma Glutamyl Transpeptidase 51, Aspartate Amino Transf (AST/SGOT) 49H, Alanine Aminotransferase (ALT/SGPT) 45, Alkaline Phosphatase 166H, Total Creatine Kinase 76, C-Reactive Protein, Quantitative 22.3H, Pro-B-Type Natriuretic Peptide 1771H, Total Protein 6.5, Albumin 1.8L, Globulin 4.7, Albumin/Globulin Ratio 0.4L, Triglycerides Level 137, Cholesterol Level 91, LDL Cholesterol 44, HDL Cholesterol 23L, Cholesterol/HDL Ratio 4.0, Vitamin B12 Level 403, Folate 16.9, Thyroid Stimulating Hormone (TSH) 1.721 Current Medications Medications (Trade) Dose Ordered Sig/Giovanny Route PRN Reason Start Time Stop Time Status Last Admin Dose Admin Acetaminophen (Tylenol) 650 mg Q4H PRN GT Mild Pain (Pain Scale 1-3) 07/09/20 10:15 08/08/20 10:14 Acetaminophen (Tylenol) 650 mg Q6H PRN GT Temp >100.5 07/09/20 01:30 08/08/20 01:29 Dextrose (Dextrose 50%) 25 ml Q30M PRN IV Hypoglycemia 07/09/20 10:15 10/07/20 10:14 Dextrose (Dextrose 50%) 50 ml Q30M PRN IV Hypoglycemia 07/09/20 10:15 10/07/20 10:14 Dextrose/Sodium Chloride 1,000 ml @ 75 mls/hr [id number] IV 07/09/20 10:15 08/08/20 10:14 07/09/20 23:54 Heparin Sodium (Porcine) (Heparin 5000 units/ml) 5,000 units EVERY 12 HOURS SUBQ 07/09/20 21:00 08/23/20 20:59 07/09/20 21:30 Levofloxacin 100 ml @ 100 mls/hr Q24H IVPB 07/09/20 12:00 07/16/20 11:59 07/09/20 11:52 Pantoprazole (Protonix) 40 mg EVERY 12 HOURS IVP 07/09/20 21:00 08/08/20 20:59 07/09/20 21:25 Piperacillin Sod/ Tazobactam Sod 3.375 gm/Sodium Chloride 110 ml @ 27.5 mls/hr EVERY 8 HOURS IVPB 07/09/20 12:00 07/16/20 11:59 07/10/20 06:17 Assessment/Plan Assessment/Plan 1. Anemia - hgb 6.5 today (was 9.7 yesterday); no signs of active bleeding - will transfuse 2 units of PRBC - Will consult Dr. Marie - will dc heparin - will order FOBT - check AM labs 2. Hypoxia on arrival - now on 2L NC saturating at 100% - wean as tolerated 3. COVID-19 PUI 4. Sepsis, likely secondary to UTI, HCAP - on Zosyn and Levofloxacin - UCx pending 5. ILA, electrolyte abnormality - nephro following 6. CHF exacerbation - seen by cardio - on IV Lasix 20 mg QD The care for this patient was discussed with my supervising physician Time spent for this case was approximately 31 minutes Bnadar Hansen Jul 10, 2020 08:31
[2020-07-10] MEDS: Pantoprazole Inj IVP SCH ×2 (09:20→22:10)
--- NOTE | 2020-07-10 09:32 | Cardiology Progress Note ---
Assessment/Plan Status: hypovolemia Status Narrative Sudden drop in Hgb to 6.5 overnight, transfuse as necessary to maintain Hgb 8 and above. SR, rate and SBP in normal territory. Assessment/Plan 1. PNA and developing sepsis 2. CHF with elevated BNP diuresis as tolerated with IV Lasix Bb for rate control 3. Dehydration and electrolyte imbalance 4. Sinus tachycardia 5. Anemia - acute on chronic Hgb 6.5, pt will be transfused 6. UTI 7. Aphasia 8. Dementia and h/o psych disorder Subjective ROS Limited/Unobtainable: Yes Subjective 69-year-old male admitted for AMS and hypoxia. BNP elevated, troponin negative. Anemic today, Hgb 6.5 Objective Last 24 Hour Vital Signs Date Time Temp Pulse Resp B/P (MAP) Pulse Ox O2 Delivery O2 Flow Rate FiO2 07/10/20 08:00 98.2 98 21 121/67 (85) 100 07/10/20 04:00 98.8 95 18 100/67 (78) 100 07/10/20 03:15 93 07/09/20 23:55 98.1 94 18 107/68 (81) 100 07/09/20 23:30 90 07/09/20 21:00 Nasal Cannula 3.0 07/09/20 20:00 93 07/09/20 20:00 98.6 94 18 112/65 (81) 100 07/09/20 16:00 97 07/09/20 16:00 98.6 97 20 108/67 (81) 99 07/09/20 12:00 99.5 96 20 103/59 (74) 99 07/09/20 12:00 99 General Appearance: no apparent distress Neck: no JVD Cardiovascular: normal rate, regular rhythm Respiratory/Chest: no respiratory distress, no accessory muscle use Extremities: trace edema Neurologic: motor weakness, disoriented Intake and Output 07/09/20 07/10/20 19:00 07:00 Intake Total 200 ml 40 ml Output Total 650 ml 1100 ml Balance -450 ml -1060 ml Intake Tube Feeding 200 ml 40 ml Output Urine Total 650 ml 1100 ml # Bowel Movements 2 1 Laboratory Tests Test 07/09/20 15:06 07/10/20 04:40 Urine Random Sodium 129 mmol/L (20-110) H White Blood Count 6.1 K/UL (4.8-10.8) Red Blood Count 2.63 M/UL (4.70-6.10) L Hemoglobin 6.5 G/DL (14.2-18.0) Hematocrit 20.8 % (42.0-52.0) #L Mean Corpuscular Volume 79 FL (80-99) L Mean Corpuscular Hemoglobin 24.6 PG (27.0-31.0) L Mean Corpuscular Hemoglobin Concent 31.0 G/DL (32.0-36.0) L Red Cell Distribution Width 16.6 % (11.6-14.8) H Platelet Count 363 K/UL (150-450) Mean Platelet Volume 6.5 FL (6.5-10.1) Neutrophils (%) (Auto) % (45.0-75.0) Lymphocytes (%) (Auto) % (20.0-45.0) Monocytes (%) (Auto) % (1.0-10.0) Eosinophils (%) (Auto) % (0.0-3.0) Basophils (%) (Auto) % (0.0-2.0) Neutrophils % (Manual) Pending Lymphocytes % (Manual) Pending Platelet Estimate Pending Platelet Morphology Pending Sodium Level 141 MMOL/L (136-145) Potassium Level 3.3 MMOL/L (3.5-5.1) L Chloride Level 110 MMOL/L (98-107) H Carbon Dioxide Level 19 MMOL/L (21-32) L Anion Gap 12 mmol/L (5-15) Blood Urea Nitrogen 27 mg/dL (7-18) H Creatinine 1.1 MG/DL (0.55-1.30) Estimat Glomerular Filtration Rate > 60 mL/min (>60) Glucose Level 105 MG/DL (74-106) Hemoglobin A1c 5.0 % (4.3-6.0) Uric Acid 4.3 MG/DL (2.6-7.2) Calcium Level 9.9 MG/DL (8.5-10.1) Phosphorus Level 3.6 MG/DL (2.5-4.9) Magnesium Level 2.0 MG/DL (1.8-2.4) Iron Level 16 ug/dL (50-175) L Total Iron Binding Capacity 126 ug/dL (250-450) L Percent Iron Saturation 13 % (15-50) L Unsaturated Iron Binding 110 ug/dL (112-346) L Ferritin 960 NG/ML (8-388) H Total Bilirubin < 0.1 MG/DL (0.2-1.0) L Gamma Glutamyl Transpeptidase 51 U/L (5-85) Aspartate Amino Transf (AST/SGOT) 49 U/L (15-37) H Alanine Aminotransferase (ALT/SGPT) 45 U/L (12-78) Alkaline Phosphatase 166 U/L (46-116) H Total Creatine Kinase 76 U/L (26-308) C-Reactive Protein, Quantitative 22.3 mg/dL (0.00-0.90) H Pro-B-Type Natriuretic Peptide 1771 pg/mL (0-125) H Total Protein 6.5 G/DL (6.4-8.2) Albumin 1.8 G/DL (3.4-5.0) L Globulin 4.7 g/dL Albumin/Globulin Ratio 0.4 (1.0-2.7) L Triglycerides Level 137 MG/DL (30-150) Cholesterol Level 91 MG/DL (< 200) LDL Cholesterol 44 mg/dL (<100) HDL Cholesterol 23 MG/DL (40-60) L Cholesterol/HDL Ratio 4.0 (3.3-4.4) Vitamin B12 Level 403 PG/ML (193-986) Folate 16.9 NG/ML (8.6-58.9) Thyroid Stimulating Hormone (TSH) 1.721 uiU/mL (0.358-3.740) Microbiology Date/Time Source Procedure Growth Status 07/08/20 20:10 Blood Blood Culture - Preliminary NO GROWTH AFTER 24 HOURS Resulted 07/08/20 19:56 Blood Blood Culture - Preliminary NO GROWTH AFTER 24 HOURS Resulted Vanessa Edouard PA-C Jul 10, 2020 09:32
--- NOTE | 2020-07-10 11:53 | NUR ---
INSURANCE CLINICALS/REVIEW FAXED TO [facility] [place] [facility] [phone] FX [phone].
[2020-07-10 12:00] VITALS: BP 117/64
--- NOTE | 2020-07-10 13:36 | NUR ---
RD ASSESSMENT & RECOMMENDATIONS SEE CARE ACTIVITY FOR COMPLETE ASSESSMENT DAILY ESTIMATED NEEDS: Needs based on Wounds, 60kg 30-35kcal/kg kcals/kg 8591-0756 total kcals 1.5-2.0 g protein/kg 90-120 g total protein 25-30 mL/kg 7537-3344 total fluid mLs NUTRITION DIAGNOSIS: Increased kcal/prot needs R/T wound healing as evidenced by pt admitted w/ multiple wounds including stage 4 lt buttock wound and DTPI wounds @ sacrococcyx, L trochanter, R hallux, L lateral malleolus. CURRENT TF:NPO ENTERAL NUTRITION RECOMMENDATIONS: Osmolite 1.5 @ 55ml/hr x 24 hrs + Prosource 1pkt QD to provide 1320ml, 1980kcal, 83g +11g prot, 1006ml free water * As medically appropriate, initiate Osmolite 1.5 @ 15ml/hr x 6hrs * Advance 10ml q 4-6 hrs as tolerated to goal * Add Prosource 1pkt QD for additional 11g prot * HOB over 30 degrees/ water flush per MD ADDITIONAL RECOMMENDATIONS: * Daily calibrated bedscale wt: CHF dx, on lasix * Wound healing: Add Vit C 500mg BID, ZnSO4 220mg QD x 10 days TF @ goal will provide 100 % RDI Add El BID via PEG * Monitor lytes, replete as needed
--- NOTE | 2020-07-10 13:51 | Nephrology Progress Note ---
Assessment/Plan Problem List: (1) ILA (acute kidney injury) (2) Dehydration Assessment Acute renal failure Dehydration, hypercalcemia Hyperkalemia Anemia, low MCV Sepsis, UTI, healthcare associated pneumonia Plan July 10: Creatinine of 1.4 down to 1.1. Electrolytes noted and abnormalities addressed. Patient on 50 cc an hour IV fluid. Remains NPO. Significant drop in hemoglobin. Transfusion ordered by consultants. Continue to monitor renal parameters and electrolytes. 2D echo results noted. Ejection fraction 65%. Albumin bolus given. Previously: Slow hydrate Monitor renal parameters and electrolytes Anemia work-up Antibiotics Avoid nephrotoxic's Monitor urine output Per orders Subjective ROS Limited/Unobtainable: No Constitutional: Reports: malaise, weakness Objective Objective Last 24 Hour Vital Signs Date Time Temp Pulse Resp B/P (MAP) Pulse Ox O2 Delivery O2 Flow Rate FiO2 07/10/20 08:00 98.2 98 21 121/67 (85) 100 07/10/20 04:00 98.8 95 18 100/67 (78) 100 07/10/20 03:15 93 07/09/20 23:55 98.1 94 18 107/68 (81) 100 07/09/20 23:30 90 07/09/20 21:00 Nasal Cannula 3.0 07/09/20 20:00 93 07/09/20 20:00 98.6 94 18 112/65 (81) 100 07/09/20 16:00 97 07/09/20 16:00 98.6 97 20 108/67 (81) 99 Intake and Output 07/09/20 07/10/20 19:00 07:00 Intake Total 200 ml 40 ml Output Total 650 ml 1100 ml Balance -450 ml -1060 ml Intake Tube Feeding 200 ml 40 ml Output Urine Total 650 ml 1100 ml # Bowel Movements 2 1 Current Medications Medications (Trade) Dose Ordered Sig/Giovanny Route PRN Reason Start Time Stop Time Status Last Admin Dose Admin Acetaminophen (Tylenol) 650 mg Q4H PRN GT Mild Pain (Pain Scale 1-3) 07/09/20 10:15 08/08/20 10:14 Acetaminophen (Tylenol) 650 mg Q6H PRN GT Temp >100.5 07/09/20 01:30 08/08/20 01:29 Dextrose/ Electrolytes 1,000 ml @ 50 mls/hr Q20H IV 07/10/20 13:00 2/27/21 12:59 Furosemide (Lasix) 20 mg DAILY IV 07/11/20 09:00 08/10/20 08:59 Levofloxacin 100 ml @ 100 mls/hr Q24H IVPB 07/09/20 12:00 07/16/20 11:59 07/09/20 11:52 Metoprolol Tartrate (Lopressor) 12.5 mg Q12HR GT 07/10/20 21:00 10/08/20 20:59 Pantoprazole (Protonix) 40 mg EVERY 12 HOURS IVP 07/09/20 21:00 08/08/20 20:59 07/10/20 09:20 Piperacillin Sod/ Tazobactam Sod 3.375 gm/Sodium Chloride 110 ml @ 27.5 mls/hr EVERY 8 HOURS IVPB 07/09/20 12:00 07/16/20 11:59 07/10/20 06:17 Laboratory Tests 07/09/20 15:06: Urine Random Sodium 129H 07/10/20 04:40: White Blood Count 6.1, Red Blood Count 2.63L, Hemoglobin 6.5#*L, Hematocrit 20.8#L, Mean Corpuscular Volume 79L, Mean Corpuscular Hemoglobin 24.6L, Mean Corpuscular Hemoglobin Concent 31.0L, Red Cell Distribution Width 16.6H, Platelet Count 363, Mean Platelet Volume 6.5, Neutrophils (%) (Auto) , Lymphocyt es (%) (Auto) , Monocytes (%) (Auto) , Eosinophils (%) (Auto) , Basophils (%) (Auto) , Differential Total Cells Counted 100, Neutrophils % (Manual) 57, Lymphocytes % (Manual) 37, Monocytes % (Manual) 2, Eosinophils % (Manual) 4H, Basophils % (Manual) 0, Band Neutrophils 0, Platelet Estimate Adequate, Platelet Morphology Normal, Hypochromasia 3+, Anisocytosis 1+, Sodium Level 141, Potassium Level 3.3L, Chloride Level 110H, Carbon Dioxide Level 19L, Anion Gap 12, Blood Urea Nitrogen 27H, Creatinine 1.1, Estimat Glomerular Filtration Rate > 60, Glucose Level 105, Hemoglobin A1c 5.0, Uric Acid 4.3, Calcium Level 9.9, Phosphorus Level 3.6, Magnesium Level 2.0, Iron Level 16L, Total Iron Binding Capacity 126L, Percent Iron Saturation 13L, Unsaturated Iron Binding 110L, Ferritin 960H, Total Bilirubin < 0.1L, Gamma Glutamyl Transpeptidase 51, Aspartate Amino Transf (AST/SGOT) 49H, Alanine Aminotransferase (ALT/SGPT) 45, Alkaline Phosphatase 166H, Total Creatine Kinase 76, C-Reactive Protein, Quantitative 22.3H, Pro-B-Type Natriuretic Peptide 1771H, Total Protein 6.5, Albumin 1.8L, Globulin 4.7, Albumin/Globulin Ratio 0.4L, Triglycerides Level 137, Cholesterol Level 91, LDL Cholesterol 44, HDL Cholesterol 23L, Cholesterol/HDL Ratio 4.0, Vitamin B12 Level 403, Folate 16.9, Thyroid Stimulating Hormone (TSH) 1.721 Height (Feet): 5 Height (Inches): 6.00 Weight (Pounds): 150 General Appearance: no apparent distress Cardiovascular: tachycardia Respiratory/Chest: decreased breath sounds Abdomen: distended Kyaw Leal MD Jul 10, 2020 13:51
--- NOTE | 2020-07-10 14:29 | Surgery Progress Note ---
Surgery Progress Note Subjective Additional Comments tolerating tf mumbles words no n/v labs noted exam stable Objective Last 24 Hour Vital Signs Date Time Temp Pulse Resp B/P (MAP) Pulse Ox O2 Delivery O2 Flow Rate FiO2 07/10/20 08:00 98.2 98 21 121/67 (85) 100 07/10/20 04:00 98.8 95 18 100/67 (78) 100 07/10/20 03:15 93 07/09/20 23:55 98.1 94 18 107/68 (81) 100 07/09/20 23:30 90 07/09/20 21:00 Nasal Cannula 3.0 07/09/20 20:00 93 07/09/20 20:00 98.6 94 18 112/65 (81) 100 07/09/20 16:00 97 07/09/20 16:00 98.6 97 20 108/67 (81) 99 I&O Intake and Output 07/09/20 07/10/20 19:00 07:00 Intake Total 200 ml 40 ml Output Total 650 ml 1100 ml Balance -450 ml -1060 ml Intake Tube Feeding 200 ml 40 ml Output Urine Total 650 ml 1100 ml # Bowel Movements 2 1 Dressing: saturated Cardiovascular: RSR Respiratory: decreased breath sounds Abdomen: soft, non-tender, present bowel sounds Extremities: no tenderness, no cyanosis Laboratory Tests Test 07/09/20 15:06 07/10/20 04:40 Urine Random Sodium 129 mmol/L (20-110) H White Blood Count 6.1 K/UL (4.8-10.8) Red Blood Count 2.63 M/UL (4.70-6.10) L Hemoglobin 6.5 G/DL (14.2-18.0) Hematocrit 20.8 % (42.0-52.0) #L Mean Corpuscular Volume 79 FL (80-99) L Mean Corpuscular Hemoglobin 24.6 PG (27.0-31.0) L Mean Corpuscular Hemoglobin Concent 31.0 G/DL (32.0-36.0) L Red Cell Distribution Width 16.6 % (11.6-14.8) H Platelet Count 363 K/UL (150-450) Mean Platelet Volume 6.5 FL (6.5-10.1) Neutrophils (%) (Auto) % (45.0-75.0) Lymphocytes (%) (Auto) % (20.0-45.0) Monocytes (%) (Auto) % (1.0-10.0) Eosinophils (%) (Auto) % (0.0-3.0) Basophils (%) (Auto) % (0.0-2.0) Differential Total Cells Counted 100 Neutrophils % (Manual) 57 % (45-75) Lymphocytes % (Manual) 37 % (20-45) Monocytes % (Manual) 2 % (1-10) Eosinophils % (Manual) 4 % (0-3) H Basophils % (Manual) 0 % (0-2) Band Neutrophils 0 % (0-8) Platelet Estimate Adequate Platelet Morphology Normal Hypochromasia 3+ Anisocytosis 1+ Sodium Level 141 MMOL/L (136-145) Potassium Level 3.3 MMOL/L (3.5-5.1) L Chloride Level 110 MMOL/L (98-107) H Carbon Dioxide Level 19 MMOL/L (21-32) L Anion Gap 12 mmol/L (5-15) Blood Urea Nitrogen 27 mg/dL (7-18) H Creatinine 1.1 MG/DL (0.55-1.30) Estimat Glomerular Filtration Rate > 60 mL/min (>60) Glucose Level 105 MG/DL (74-106) Hemoglobin A1c 5.0 % (4.3-6.0) Uric Acid 4.3 MG/DL (2.6-7.2) Calcium Level 9.9 MG/DL (8.5-10.1) Phosphorus Level 3.6 MG/DL (2.5-4.9) Magnesium Level 2.0 MG/DL (1.8-2.4) Iron Level 16 ug/dL (50-175) L Total Iron Binding Capacity 126 ug/dL (250-450) L Percent Iron Saturation 13 % (15-50) L Unsaturated Iron Binding 110 ug/dL (112-346) L Ferritin 960 NG/ML (8-388) H Total Bilirubin < 0.1 MG/DL (0.2-1.0) L Gamma Glutamyl Transpeptidase 51 U/L (5-85) Aspartate Amino Transf (AST/SGOT) 49 U/L (15-37) H Alanine Aminotransferase (ALT/SGPT) 45 U/L (12-78) Alkaline Phosphatase 166 U/L (46-116) H Total Creatine Kinase 76 U/L (26-308) C-Reactive Protein, Quantitative 22.3 mg/dL (0.00-0.90) H Pro-B-Type Natriuretic Peptide 1771 pg/mL (0-125) H Total Protein 6.5 G/DL (6.4-8.2) Albumin 1.8 G/DL (3.4-5.0) L Globulin 4.7 g/dL Albumin/Globulin Ratio 0.4 (1.0-2.7) L Triglycerides Level 137 MG/DL (30-150) Cholesterol Level 91 MG/DL (< 200) LDL Cholesterol 44 mg/dL (<100) HDL Cholesterol 23 MG/DL (40-60) L Cholesterol/HDL Ratio 4.0 (3.3-4.4) Vitamin B12 Level 403 PG/ML (193-986) Folate 16.9 NG/ML (8.6-58.9) Thyroid Stimulating Hormone (TSH) 1.721 uiU/mL (0.358-3.740) Plan Problems: (1) Decubitus skin ulcer Assessment & Plan: Pt presented on admission with Contractures, Multiple Pressure Injuries .Pt is receiving Oxygen via NC. Both ears assessed and no evidence of Skin Breakdown noted. Full Thickness stage 4Pressure Injury L Buttocks (L)1.5cm x (W)1.4cm x (D) 0.2cm. Base of wound is 90% moist,sonia;10% slough. Non-Blanchable erythema along borders and periwound. DTPI Sacrococcygeal area (L)1.5cm x (W)0.8cm. Base of wound is maroon and indurated with surrounding non-blanchable erythema. DTPI L Trochanter(L)1.5cm x (W)0.8cm. Base of Pressure Injury is maroon and indurated.Surrounding Non-Blanchable erythema with delineated margins(L)8.5cm x (W)9cm. Unstageable Pressure Injury Plantar R Heel (L)2.5cm x (W)1.4cm. Stable dry eschar noted. Periwound is blanchable. Non-Blanchable erythema with fluctuance medial R Malleolus (L)4.5cm x (W)3cm. DTPI R Hallux (L)3cm x (W)2.4cm. Base of Pressure Injury is maroon and fluctuant. DTPI L lateral Malleolus(L)3cm x (W)3.5cm. Base of Pressure Injury is maroon and fluctuant. Tx.Plan: Cleanse wound L Buttocks with Saline. Apply TheraHoney. Apply Moisture Barrier Periwound. Cover with Optifoam drsg. Change Daily and prn. Apply Triad Paste to Sacrum. Cover with Optifoam drsg. Change every 3 days and prn. Apply Cavilon Skin Barrier to R and L trochanteric. Cover each site with Optifoam drsgs Change every 7 days and PRN. Apply Cavilon Skin BArrier to L Heel,Malleoli,Hallux. Cover each site with Optifoam drsgs. Change every 7 days and prn. Apply Cavilon Skin BArrier to R Heel , Malleoli ,Hallux. Cover each site with Optifoam drsgs. Change every 7 days and prn. Reposition at least every 2hours or as tolerated. Off-load heels with Pillow. APM/MARIA Mattress Overlay. (2) HCAP (healthcare-associated pneumonia) (3) Sepsis Assessment & Plan: lactic acidosis, elevated lft's abnormal labs renal insufficiency hypoxia -renal input appreciated -O2 supplement cxr noted cont abx steroids trend labs fluids thank you DAILY ESTIMATED NEEDS: Needs based on Wounds, 60kg 30-35kcal/kg kcals/kg 1925-8920 total kcals 1.5-2.0 g protein/kg 90-120 g total protein 25-30 mL/kg 3853-6227 total fluid mLs NUTRITION DIAGNOSIS: Increased kcal/prot needs R/T wound healing as evidenced by pt admitted w/ multiple wounds including stage 4 lt buttock wound and DTPI wounds @ sacrococcyx, L trochanter, R hallux, L lateral malleolus. CURRENT TF:NPO ENTERAL NUTRITION RECOMMENDATIONS: Osmolite 1.5 @ 55ml/hr x 24 hrs + Prosource 1pkt QD to provide 1320ml, 1980kcal, 83g +11g prot, 1006ml free water * As medically appropriate, initiate Osmolite 1.5 @ 15ml/hr x 6hrs * Advance 10ml q 4-6 hrs as tolerated to goal * Add Prosource 1pkt QD for additional 11g prot * HOB over 30 degrees/ water flush per MD ADDITIONAL RECOMMENDATIONS: * Daily calibrated bedscale wt: CHF dx, on lasix * Wound healing: Add Vit C 500mg BID, ZnSO4 220mg QD x 10 days TF @ goal will provide 100 % RDI Add El BID via PEG * Monitor lytes, replete as needed (4) UTI (urinary tract infection) Saleem Juan Jul 10, 2020 14:29
--- NOTE | 2020-07-10 14:56 | NUR ---
NURSE NOTES: notified Ольга from Pharmacy that we are running blood now. Second bag of potassium to follow. After potassium finishes, will start with 2nd bag of blood. Antibiotics will be given late, once prior infusions finish. Pharmacy is aware.
--- NOTE | 2020-07-10 15:33 | NUR ---
CASE MANAGEMENT:REVIEW 07/10/20 SI: SEPSIS. PNA. UTI 98.2 98 21 121/67 100% ON 3L/NC H/H-6.5/20.8 K-3.3 IS: TRANSFUSE 1 UNIT PRBC'S IV ZOSYN Q8HR IV LEVAQUIN Q24 IV LASIX QD LOPRESSOR GT Q12 IVF@50/HR IV PROTONIX Q12 : TELEMETRY STATUS DCP: FROM [facility]
[2020-07-10 16:00] VITALS: BP 131/67
[2020-07-10] MEDS: D5 1/2NS w/KCl 40meq 1000ml 1,000 ML IV SCH (17:16)
--- NOTE | 2020-07-10 19:30 | NUR ---
NURSE NOTES: Patient received from ANNY Louise. Patient is A/O x 1. Patient appears to be confused. Patient is on Nasal Cannula at 1 L with no signs of acute respiratory distress noted. Patient has a GT with no residual noted, Jevity 1.2 is noted to be running at 40 ml/hr. Patient has a lea catheter, patent and well draining. Patient has an IV on his right hand 18 guage, 20 gauge IV on his forearm and an IV on his left hand 18 gauge. Patient currently being infused with blood. Bed is in the lowest position and locked, call light within reach. Will continue to monitor.
[2020-07-10 20:00] VITALS: BP 123/70
[2020-07-10] MEDS: Metoprolol Tartrate 12.5mg TAB GT SCH (22:10)
[2020-07-11] VITALS: BP 111/72
[2020-07-11 04:00] VITALS: BP 108/61
[2020-07-11] MEDS: Piperacillin/Tazobactam 3.375 GM in NS 110 ML IVPB SCH ×2 (05:55→09:37)
[2020-07-11 07:16] LABS: BASOPHILS % (AUTO) 0.8 % (0.0-2.0); HEMATOCRIT 29.1 % (42.0-52.0); HEMOGLOBIN 9.2 G/DL (14.2-18.0); LYMPHOCYTES % (AUTO) 24.1 % (20.0-45.0); MEAN CORPUSCULAR VOLUME 80 FL (80-99); MONOCYTES % (AUTO) 7.7 % (1.0-10.0); NEUTROPHILS % (AUTO) 64.4 % (45.0-75.0); PLATELET COUNT 434 K/UL (150-450); RED BLOOD COUNT 3.65 M/UL (4.70-6.10); RED CELL DISTRIBUTION WIDTH 16.6 % (11.6-14.8); WHITE BLOOD COUNT 8.3 K/UL (4.8-10.8)
--- NOTE | 2020-07-11 07:30 | NUR ---
NURSE NOTES: Received hand-off report from Aditya Alba RN. Patient in semi-fowlers, tolerating g-tube feeding well, no aspiration noted, on room air, spO2 98%, respirations 16 bpm, breathing even and unlabored, alert and oriented x1. Bed in lowest and locked position, bed alarm on, call light within reach.
[2020-07-11 07:50] LABS: ALANINE AMINOTRANSFERASE 34 U/L (12-78); ALBUMIN 1.7 G/DL (3.4-5.0); ALBUMIN/GLOBULIN RATIO 0.3 (1.0-2.7); ALKALINE PHOSPHATASE 187 U/L (46-116); ANION GAP 9 mmol/L (5-15); ASPARTATE AMINO TRANSFERASE 36 U/L (15-37); BILIRUBIN,TOTAL 0.3 MG/DL (0.2-1.0); BLOOD UREA NITROGEN 21 mg/dL (7-18); CALCIUM 9.8 MG/DL (8.5-10.1); CARBON DIOXIDE 21 MMOL/L (21-32); CHLORIDE 106 MMOL/L (98-107); PHOSPHORUS 3.8 MG/DL (2.5-4.9); POTASSIUM 4.5 MMOL/L (3.5-5.1); SODIUM 136 MMOL/L (136-145)
--- NOTE | 2020-07-11 07:54 | NUR ---
CASE MANAGEMENT:REVIEW 07/11/20 SI: SEPSIS. PNA. UTI 100.2 101 20 108/61 100% ON 1L/NC H/H-9.2/.1 BUN+21 IS: IV ZOSYN Q8HR IV LEVAQUIN Q24 IV LASIX QD LOPRESSOR GT Q12 IVF@50/HR IV PROTONIX Q12 : TELEMETRY STATUS DCP: FROM [facility] PLAN: MONITOR TEMP CONTINUE IV ABX
[2020-07-11 08:00] VITALS: BP 113/64
--- NOTE | 2020-07-11 08:02 | NUR ---
NURSE HAND-OFF REPORT: Important Events on Shift:[Gave 1 unit of blood. Patient's antibiotic is given late due to blood was given to the patient] Patient Status: [Stable] Diet: [Jevity 1.2] Pending Orders: [] Pending Results/Labs:[] Pending MD notification:[] Latest Vital Signs: Temperature 100.2 , Pulse 96 , B/P 108 /61 , Respiratory Rate 20 , O2 SAT 100 , Nasal Cannula, O2 Flow Rate 1.0 . Vital Sign Comment: [] EKG Rhythm: Sinus Rhythm Rhythm change?: N MD Notified?: N - MD Response: Latest Randolph Fall Score: 70 Fall Risk: High Risk Safety Measures: Call light Within Reach, Bed Alarm Zone 1, Side Rails Side Rails x2, Bed position Low and Locked. Fall Precautions: Yellow Socks Yellow Gown Door Sign Patient Fall Education Report given to [ANNY Monroy].
--- NOTE | 2020-07-11 08:56 | NUR ---
RADIOLOGY DEPT., CHEST X-RAY DONE.-P.DYE
[2020-07-11] MEDS: Pantoprazole Inj IVP SCH ×2 (09:21→21:09)
[2020-07-11] MEDS: Metoprolol Tartrate 12.5mg TAB GT SCH ×2 (09:22→21:09)
[2020-07-11] MEDS: D5 1/2NS w/KCl 40meq 1000ml 1,000 ML IV SCH (09:22)
[2020-07-11] MEDS: Acetaminophen 650mg/20.3ml GT PRN (09:40)
[2020-07-11 12:00] VITALS: BP 119/67
--- NOTE | 2020-07-11 13:37 | Diagnostic Imaging Report ---
Indication: Cough Technique: One view of the chest Comparison: 07/08/2020 Findings: Lungs and pleural spaces are clear. Heart size is normal. No significant change Impression: No acute process
--- NOTE | 2020-07-11 13:47 | Pulmonology Progress Note ---
Subjective ROS Limited/Unobtainable: Yes Interval Events: Hgb better Constitutional: Reports: no symptoms HEENT: Repors: no symptoms Respiratory: Reports: no symptoms Cardiovascular: Reports: no symptoms Gastrointestinal/Abdominal: Reports: no symptoms Allergies: Coded Allergies: CEFPROZIL (Verified Allergy, Unknown, 07/08/20) Objective Last 24 Hour Vital Signs Date Time Temp Pulse Resp B/P (MAP) Pulse Ox O2 Delivery O2 Flow Rate FiO2 07/11/20 12:00 97.3 102 20 119/67 (84) 100 07/11/20 10:10 99.5 07/11/20 09:22 100 113/64 07/11/20 09:00 Room Air 07/11/20 08:00 109 07/11/20 08:00 98.0 100 19 113/64 (80) 100 07/11/20 04:00 96 07/11/20 04:00 100.2 101 20 108/61 (77) 100 07/11/20 00:00 96 07/11/20 00:00 98.8 101 20 111/72 (85) 99 07/10/20 22:10 108 123/77 07/10/20 21:00 Nasal Cannula 1.0 07/10/20 20:00 97.4 107 22 123/70 (87) 99 07/10/20 20:00 108 07/10/20 16:00 99.3 107 20 131/67 (88) 100 07/10/20 16:00 113 Intake and Output 07/10/20 07/11/20 19:00 07:00 Intake Total 440 ml Output Total 600 ml Balance -160 ml Intake Tube Feeding 440 ml Output Urine Total 600 ml # Bowel Movements 1 2 General Appearance: no acute distress HEENT: atraumatic Respiratory: lungs clear Cardiovascular: normal rate Abdomen: soft, non tender Microbiology Date/Time Source Procedure Growth Status 07/09/20 00:29 Nasopharynx Coronavirus COVID-19 PCR ([facility]) - Final Complete 07/08/20 23:58 Rectum - Final NO CARBAPENEM-RESISTANT ENTEROBACTERI... Complete 07/08/20 23:58 Rectum VRE Culture - Final NO VANCOMYCIN RESISTANT ENTEROCOCCUS ... Complete 07/08/20 23:58 Nasal Nares MRSA Culture - Final Staphylococcus Aureus - Mrsa Complete 07/08/20 20:10 Urine,Clean Catch Urine Culture - Final Escherichia Coli Complete 07/08/20 20:10 Blood Blood Culture - Preliminary NO GROWTH AFTER 48 HOURS Resulted 07/08/20 19:56 Blood Blood Culture - Preliminary NO GROWTH AFTER 48 HOURS Resulted Laboratory Tests 07/10/20 14:15: Stool Occult Blood Negative 07/11/20 06:50: White Blood Count 8.3, Red Blood Count 3.65L, Hemoglobin 9.2#L, Hematocrit 29.1#L, Mean Corpuscular Volume 80, Mean Corpuscular Hemoglobin 25.2L, Mean Corpuscular Hemoglobin Concent 31.6L, Red Cell Distribution Width 16.6H, Platelet Count 434, Mean Platelet Volume 6.8, Neutrophils (%) (Auto) 64.4, Lymphocytes (%) (Auto) 24.1, Monocytes (%) (Auto) 7.7, Eosinophils (%) (Auto) 3.0, Basophils (%) (Auto) 0.8, Sodium Level 136, Potassium Level 4.5, Chloride Level 106, Carbon Dioxide Level 21, Anion Gap 9, Blood Urea Nitrogen 21H, Creatinine 1.0, Estimat Glomerular Filtration Rate > 60, Glucose Level 137H, Calcium Level 9.8, Phosphorus Level 3.8, Magnesium Level 2.0, Total Bilirubin 0.3, Aspartate Amino Transf (AST/SGOT) 36, Alanine Aminotransferase (ALT/SGPT) 34, Alkaline Phosphatase 187H, Total Protein 6.6, Albumin 1.7L, Globulin 4.9, Albumin/Globulin Ratio 0.3L Current Medications Medications (Trade) Dose Ordered Sig/Giovanny Route PRN Reason Start Time Stop Time Status Last Admin Dose Admin Acetaminophen (Tylenol) 650 mg Q4H PRN GT Mild Pain (Pain Scale 1-3) 07/09/20 10:15 08/08/20 10:14 Acetaminophen (Tylenol) 650 mg Q6H PRN GT Temp >100.5 07/09/20 01:30 08/08/20 01:29 07/11/20 09:40 Dextrose/ Electrolytes 1,000 ml @ 50 mls/hr Q20H IV 07/10/20 13:00 08/09/20 12:59 07/11/20 09:22 Furosemide (Lasix) 20 mg DAILY IV 07/11/20 09:00 08/10/20 08:59 07/11/20 09:21 Levofloxacin 100 ml @ 100 mls/hr Q24H IVPB 07/09/20 12:00 07/16/20 11:59 07/11/20 12:08 Metoprolol Tartrate (Lopressor) 12.5 mg Q12HR GT 07/10/20 21:00 10/08/20 20:59 07/11/20 09:22 Pantoprazole (Protonix) 40 mg EVERY 12 HOURS IVP 07/09/20 21:00 08/08/20 20:59 07/11/20 09:21 Assessment/Plan Assessment/Plan 1. Anemia - Hgb better, s/p 2 units of PRBC - GI consulted - now off heparin 2. Hypoxia on arrival - now on 1L NC saturating at 100% - wean as tolerated 3. COVID-19 negative 4. Sepsis, likely secondary to UTI, HCAP - on Levofloxacin; now off Zosyn - UCx grew E. Coli 5. ILA, electrolyte abnormality - nephro following 6. CHF exacerbation - seen by cardio - on IV Lasix 20 mg QD - EF 65% - CXR 07/11 no acute process 7. MRSA nasal - contact precaution The care for this patient was discussed with my supervising physician Time spent for this case was approximately 31 minutes Bandar Hansen Jul 11, 2020 13:47
--- NOTE | 2020-07-11 14:02 | Nephrology Progress Note ---
Assessment/Plan Problem List: (1) ILA (acute kidney injury) (2) Dehydration (3) Sepsis (4) Anemia Assessment Acute renal failure Dehydration, hypercalcemia Hyperkalemia Anemia, low MCV Sepsis, UTI, healthcare associated pneumonia Plan July 11: Labs reviewed. Hemoglobin higher after transfusion. Electrolytes and renal parameters within normal limits. Continue per current treatment plan. Blood pressure stable July 10: Creatinine of 1.4 down to 1.1. Electrolytes noted and abnormalities addressed. Patient on 50 cc an hour IV fluid. Remains NPO. Significant drop in hemoglobin. Transfusion ordered by consultants. Continue to monitor renal parameters and electrolytes. 2D echo results noted. Ejection fraction 65%. Albumin bolus given. Previously: Slow hydrate Monitor renal parameters and electrolytes Anemia work-up Antibiotics Avoid nephrotoxic's Monitor urine output Per orders Subjective ROS Limited/Unobtainable: No Constitutional: Reports: malaise Objective Objective Last 24 Hour Vital Signs Date Time Temp Pulse Resp B/P (MAP) Pulse Ox O2 Delivery O2 Flow Rate FiO2 07/11/20 12:00 95 07/11/20 12:00 97.3 102 20 119/67 (84) 100 07/11/20 10:10 99.5 07/11/20 09:22 100 113/64 07/11/20 09:00 Room Air 07/11/20 08:00 109 07/11/20 08:00 98.0 100 19 113/64 (80) 100 07/11/20 04:00 96 07/11/20 04:00 100.2 101 20 108/61 (77) 100 07/11/20 00:00 96 07/11/20 00:00 98.8 101 20 111/72 (85) 99 07/10/20 22:10 108 123/77 07/10/20 21:00 Nasal Cannula 1.0 07/10/20 20:00 97.4 107 22 123/70 (87) 99 07/10/20 20:00 108 07/10/20 16:00 99.3 107 20 131/67 (88) 100 07/10/20 16:00 113 Intake and Output 07/10/20 07/11/20 19:00 07:00 Intake Total 440 ml Output Total 600 ml Balance -160 ml Intake Tube Feeding 440 ml Output Urine Total 600 ml # Bowel Movements 1 2 Current Medications Medications (Trade) Dose Ordered Sig/Giovanny Route PRN Reason Start Time Stop Time Status Last Admin Dose Admin Acetaminophen (Tylenol) 650 mg Q4H PRN GT Mild Pain (Pain Scale 1-3) 07/09/20 10:15 08/08/20 10:14 Acetaminophen (Tylenol) 650 mg Q6H PRN GT Temp >100.5 07/09/20 01:30 08/08/20 01:29 07/11/20 09:40 Dextrose/ Electrolytes 1,000 ml @ 50 mls/hr Q20H IV 07/10/20 13:00 08/09/20 12:59 07/11/20 09:22 Furosemide (Lasix) 20 mg DAILY IV 07/11/20 09:00 08/10/20 08:59 07/11/20 09:21 Levofloxacin 100 ml @ 100 mls/hr Q24H IVPB 07/09/20 12:00 07/16/20 11:59 07/11/20 12:08 Metoprolol Tartrate (Lopressor) 12.5 mg Q12HR GT 07/10/20 21:00 10/08/20 20:59 07/11/20 09:22 Pantoprazole (Protonix) 40 mg EVERY 12 HOURS IVP 07/09/20 21:00 08/08/20 20:59 07/11/20 09:21 Laboratory Tests 07/10/20 14:15: Stool Occult Blood Negative 07/11/20 06:50: White Blood Count 8.3, Red Blood Count 3.65L, Hemoglobin 9.2#L, Hematocrit 29.1#L, Mean Corpuscular Volume 80, Mean Corpuscular Hemoglobin 25.2L, Mean Corpuscular Hemoglobin Concent 31.6L, Red Cell Distribution Width 16.6H, Platelet Count 434, Mean Platelet Volume 6.8, Neutrophils (%) (Auto) 64.4, Lymphocytes (%) (Auto) 24.1, Monocytes (%) (Auto) 7.7, Eosinophils (%) (Auto) 3.0, Basophils (%) (Auto) 0.8, Sodium Level 136, Potassium Level 4.5, Chloride Level 106, Carbon Dioxide Level 21, Anion Gap 9, Blood Urea Nitrogen 21H, Creatinine 1.0, Estimat Glomerular Filtration Rate > 60, Glucose Level 137H, Calcium Level 9.8, Phosphorus Level 3.8, Magnesium Level 2.0, Total Bilirubin 0.3, Aspartate Amino Transf (AST/SGOT) 36, Alanine Aminotransferase (ALT/SGPT) 34, Alkaline Phosphatase 187H, Total Protein 6.6, Albumin 1.7L, Globulin 4.9, Albumin/Globulin Ratio 0.3L Height (Feet): 5 Height (Inches): 6.00 Weight (Pounds): 150 General Appearance: no apparent distress, lethargic Cardiovascular: tachycardia Respiratory/Chest: decreased breath sounds Abdomen: distended Kyaw Leal MD Jul 11, 2020 14:02
--- NOTE | 2020-07-11 14:15 | Surgery Progress Note ---
Surgery Progress Note Subjective Additional Comments labs okay cxr stable no n/v comfortable Objective Last 24 Hour Vital Signs Date Time Temp Pulse Resp B/P (MAP) Pulse Ox O2 Delivery O2 Flow Rate FiO2 07/11/20 12:00 95 07/11/20 12:00 97.3 102 20 119/67 (84) 100 07/11/20 10:10 99.5 07/11/20 09:22 100 113/64 07/11/20 09:00 Room Air 07/11/20 08:00 109 07/11/20 08:00 98.0 100 19 113/64 (80) 100 07/11/20 04:00 96 07/11/20 04:00 100.2 101 20 108/61 (77) 100 07/11/20 00:00 96 07/11/20 00:00 98.8 101 20 111/72 (85) 99 07/10/20 22:10 108 123/77 07/10/20 21:00 Nasal Cannula 1.0 07/10/20 20:00 97.4 107 22 123/70 (87) 99 07/10/20 20:00 108 07/10/20 16:00 99.3 107 20 131/67 (88) 100 07/10/20 16:00 113 I&O Intake and Output 07/10/20 07/11/20 19:00 07:00 Intake Total 440 ml Output Total 600 ml Balance -160 ml Intake Tube Feeding 440 ml Output Urine Total 600 ml # Bowel Movements 1 2 Dressing: saturated Cardiovascular: RSR Respiratory: decreased breath sounds Abdomen: soft, flat, non-tender, present bowel sounds Extremities: no edema, no tenderness Laboratory Tests Test 07/11/20 06:50 White Blood Count 8.3 K/UL (4.8-10.8) Red Blood Count 3.65 M/UL (4.70-6.10) L Hemoglobin 9.2 G/DL (14.2-18.0) #L Hematocrit 29.1 % (42.0-52.0) #L Mean Corpuscular Volume 80 FL (80-99) Mean Corpuscular Hemoglobin 25.2 PG (27.0-31.0) L Mean Corpuscular Hemoglobin Concent 31.6 G/DL (32.0-36.0) L Red Cell Distribution Width 16.6 % (11.6-14.8) H Platelet Count 434 K/UL (150-450) Mean Platelet Volume 6.8 FL (6.5-10.1) Neutrophils (%) (Auto) 64.4 % (45.0-75.0) Lymphocytes (%) (Auto) 24.1 % (20.0-45.0) Monocytes (%) (Auto) 7.7 % (1.0-10.0) Eosinophils (%) (Auto) 3.0 % (0.0-3.0) Basophils (%) (Auto) 0.8 % (0.0-2.0) Sodium Level 136 MMOL/L (136-145) Potassium Level 4.5 MMOL/L (3.5-5.1) Chloride Level 106 MMOL/L (98-107) Carbon Dioxide Level 21 MMOL/L (21-32) Anion Gap 9 mmol/L (5-15) Blood Urea Nitrogen 21 mg/dL (7-18) H Creatinine 1.0 MG/DL (0.55-1.30) Estimat Glomerular Filtration Rate > 60 mL/min (>60) Glucose Level 137 MG/DL (74-106) H Calcium Level 9.8 MG/DL (8.5-10.1) Phosphorus Level 3.8 MG/DL (2.5-4.9) Magnesium Level 2.0 MG/DL (1.8-2.4) Total Bilirubin 0.3 MG/DL (0.2-1.0) Aspartate Amino Transf (AST/SGOT) 36 U/L (15-37) Alanine Aminotransferase (ALT/SGPT) 34 U/L (12-78) Alkaline Phosphatase 187 U/L (46-116) H Total Protein 6.6 G/DL (6.4-8.2) Albumin 1.7 G/DL (3.4-5.0) L Globulin 4.9 g/dL Albumin/Globulin Ratio 0.3 (1.0-2.7) L Plan Problems: (1) Decubitus skin ulcer Assessment & Plan: Pt presented on admission with Contractures, Multiple Pressure Injuries .Pt is receiving Oxygen via NC. Both ears assessed and no evidence of Skin Breakdown noted. Full Thickness stage 4Pressure Injury L Buttocks (L)1.5cm x (W)1.4cm x (D) 0. 2cm. Base of wound is 90% moist,sonia;10% slough. Non-Blanchable erythema along borders and periwound. DTPI Sacrococcygeal area (L)1.5cm x (W)0.8cm. Base of wound is maroon and indurated with surrounding non-blanchable erythema. DTPI L Trochanter(L)1.5cm x (W)0.8cm. Base of Pressure Injury is maroon and indurated.Surrounding Non-Blanchable erythema with delineated margins(L)8.5cm x (W)9cm. Unstageable Pressure Injury Plantar R Heel (L)2.5cm x (W)1.4cm. Stable dry eschar noted. Periwound is blanchable. Non-Blanchable erythema with fluctuance medial R Malleolus (L)4.5cm x (W)3cm. DTPI R Hallux (L)3cm x (W)2.4cm. Base of Pressure Injury is maroon and fluctuant. DTPI L lateral Malleolus(L)3cm x (W)3.5cm. Base of Pressure Injury is maroon and fluctuant. Tx.Plan: Cleanse wound L Buttocks with Saline. Apply TheraHoney. Apply Moisture Barrier Periwound. Cover with Optifoam drsg. Change Daily and prn. Apply Triad Paste to Sacrum. Cover with Optifoam drsg. Change every 3 days and prn. Apply Cavilon Skin Barrier to R and L trochanteric. Cover each site with Optifoam drsgs Change every 7 days and PRN. Apply Cavilon Skin BArrier to L Heel,Malleoli,Hallux. Cover each site with Optifoam drsgs. Change every 7 days and prn. Apply Cavilon Skin BArrier to R Heel , Malleoli ,Hallux. Cover each site with Optifoam drsgs. Change every 7 days and prn. Reposition at least every 2hours or as tolerated. Off-load heels with Pillow. APM/MARIA Mattress Overlay. (2) HCAP (healthcare-associated pneumonia) (3) Sepsis Assessment & Plan: lactic acidosis, elevated lft's abnormal labs renal insufficiency hypoxia -renal input appreciated -O2 supplement cxr noted cont abx steroids trend labs fluids thank you DAILY ESTIMATED NEEDS: Needs based on Wounds, 60kg 30-35kcal/kg kcals/kg 5782-2918 total kcals 1.5-2.0 g protein/kg 90-120 g total protein 25-30 mL/kg 6191-1590 total fluid mLs NUTRITION DIAGNOSIS: Increased kcal/prot needs R/T wound healing as evidenced by pt admitted w/ multiple wounds including stage 4 lt buttock wound and DTPI wounds @ sacrococcyx, L trochanter, R hallux, L lateral malleolus. CURRENT TF:NPO ENTERAL NUTRITION RECOMMENDATIONS: Osmolite 1.5 @ 55ml/hr x 24 hrs + Prosource 1pkt QD to provide 1320ml, 1980kcal, 83g +11g prot, 1006ml free water * As medically appropriate, initiate Osmolite 1.5 @ 15ml/hr x 6hrs * Advance 10ml q 4-6 hrs as tolerated to goal * Add Prosource 1pkt QD for additional 11g prot * HOB over 30 degrees/ water flush per MD ADDITIONAL RECOMMENDATIONS: * Daily calibrated bedscale wt: CHF dx, on lasix * Wound healing: Add Vit C 500mg BID, ZnSO4 220mg QD x 10 days TF @ goal will provide 100 % RDI Add El BID via PEG * Monitor lytes, replete as needed (4) UTI (urinary tract infection) Saleem Juan Jul 11, 2020 14:15
--- NOTE | 2020-07-11 15:02 | NUR ---
INSURANCE CLINICALS/REVIEW FAXED TO [facility] [place] FX [phone] FX [phone].
[2020-07-11 16:00] VITALS: BP 120/75
--- NOTE | 2020-07-11 19:15 | NUR ---
NURSE HAND-OFF REPORT: Important Events on Shift: contact isolation only per Dr. Noel d/t negative PCR, room air, spO2 97%, breathing even and unlabored Patient Status: full code, stable condition Diet: Jevity 1.2 at 40mL Pending Orders: [] Pending Results/Labs:[] Pending MD notification:[] Latest Vital Signs: Temperature 98.8 , Pulse 97 , B/P 120 /75 , Respiratory Rate 19 , O2 SAT 100 , Nasal Cannula, O2 Flow Rate 1.0 . Vital Sign Comment: [] EKG Rhythm: Sinus Rhythm Rhythm change?: N MD Notified?: N - MD Response: Latest Randolph Fall Score: 70 Fall Risk: High Risk Safety Measures: Call light Within Reach, Bed Alarm Zone 1, Side Rails Side Rails x2, Bed position Low and Locked. Fall Precautions: Yellow Socks Yellow Gown Door Sign Patient Fall Education Report given to Aditya Alba RN.
--- NOTE | 2020-07-11 19:20 | NUR ---
NURSE NOTES: Patient received from ANNY Monroy. Patient is A/O x 1. Patient is on room air with no signs of acute respiratory distress noted, satting at 98%. Patient has a GT, patent and flushed, no residual norted. Jevity 1.2 us noted to be running at 40 ml/hr. Patient has a 16 dutch lea, patent and well draining. Alvan has a 20 gauge IV on his forearm, patent and flushed. Bed is in the lowest position, call light within reach. Will continue to monitor.
[2020-07-11 20:00] VITALS: BP 107/71
--- NOTE | 2020-07-11 22:41 | Cardiology Progress Note ---
Assessment/Plan Status Narrative Sudden drop in Hgb to 6.5 overnight, transfuse as necessary to maintain Hgb 8 and above. SR, rate and SBP in normal territory. Assessment/Plan 1. PNA and developing sepsis 2. CHF with elevated BNP diuresis as tolerated with IV Lasix Bb for rate control 3. Dehydration and electrolyte imbalance 4. Sinus tachycardia 5. Anemia - acute on chronic Hgb 6.5, pt will be transfused 6. UTI 7. Aphasia 8. Dementia and h/o psych disorder Subjective Subjective CARDIOLOGY CONSULT 69-year-old male presents to ED for evaluation. Brought in by EMS from senior care facility. PMHx dementia, psych disorder, CKD, anemia, HF, former smoker, h/o CVA. Nonverbal at baseline. Hypoxic on room air. Tachycardic. Febrile. Covid PCR still pending. BNP elevated, troponin negative. We are asked to see the pt for evaluation of cardiac issues. Objective Last 24 Hour Vital Signs Date Time Temp Pulse Resp B/P (MAP) Pulse Ox O2 Delivery O2 Flow Rate FiO2 07/11/20 21:09 113 107/71 07/11/20 20:00 110 07/11/20 16:00 97 07/11/20 16:00 98.8 104 19 120/75 (90) 100 07/11/20 12:00 95 07/11/20 12:00 97.3 102 20 119/67 (84) 100 07/11/20 10:10 99.5 07/11/20 09:22 100 113/64 07/11/20 09:00 Room Air 07/11/20 08:00 109 07/11/20 08:00 98.0 100 19 113/64 (80) 100 07/11/20 04:00 96 07/11/20 04:00 100.2 101 20 108/61 (77) 100 07/11/20 00:00 96 07/11/20 00:00 98.8 101 20 111/72 (85) 99 Intake and Output 07/10/20 07/11/20 19:00 07:00 Intake Total 480 ml Output Total 600 ml Balance -120 ml Tube Feeding 480 ml Output Urine Total 600 ml # Bowel Movements 1 2 Laboratory Tests Test 07/11/20 06:50 White Blood Count 8.3 K/UL (4.8-10.8) Red Blood Count 3.65 M/UL (4.70-6.10) L Hemoglobin 9.2 G/DL (14.2-18.0) #L Hematocrit 29.1 % (42.0-52.0) #L Mean Corpuscular Volume 80 FL (80-99) Mean Corpuscular Hemoglobin 25.2 PG (27.0-31.0) L Mean Corpuscular Hemoglobin Concent 31.6 G/DL (32.0-36.0) L Red Cell Distribution Width 16.6 % (11.6-14.8) H Platelet Count 434 K/UL (150-450) Mean Platelet Volume 6.8 FL (6.5-10.1) Neutrophils (%) (Auto) 64.4 % (45.0-75.0) Lymphocytes (%) (Auto) 24.1 % (20.0-45.0) Monocytes (%) (Auto) 7.7 % (1.0-10.0) Eosinophils (%) (Auto) 3.0 % (0.0-3.0) Basophils (%) (Auto) 0.8 % (0.0-2.0) Sodium Level 136 MMOL/L (136-145) Potassium Level 4.5 MMOL/L (3.5-5.1) Chloride Level 106 MMOL/L (98-107) Carbon Dioxide Level 21 MMOL/L (21-32) Anion Gap 9 mmol/L (5-15) Blood Urea Nitrogen 21 mg/dL (7-18) H Creatinine 1.0 MG/DL (0.55-1.30) Estimat Glomerular Filtration Rate > 60 mL/min (>60) Glucose Level 137 MG/DL (74-106) H Calcium Level 9.8 MG/DL (8.5-10.1) Phosphorus Level 3.8 MG/DL (2.5-4.9) Magnesium Level 2.0 MG/DL (1.8-2.4) Total Bilirubin 0.3 MG/DL (0.2-1.0) Aspartate Amino Transf (AST/SGOT) 36 U/L (15-37) Alanine Aminotransferase (ALT/SGPT) 34 U/L (12-78) Alkaline Phosphatase 187 U/L (46-116) H Total Protein 6.6 G/DL (6.4-8.2) Albumin 1.7 G/DL (3.4-5.0) L Globulin 4.9 g/dL Albumin/Globulin Ratio 0.3 (1.0-2.7) L Microbiology Date/Time Source Procedure Growth Status 07/09/20 00:29 Nasopharynx Coronavirus COVID-19 PCR ([facility]) - Final Complete 07/08/20 23:58 Rectum - Final NO CARBAPENEM-RESISTANT ENTEROBACTERI... Complete 07/08/20 23:58 Rectum VRE Culture - Final NO VANCOMYCIN RESISTANT ENTEROCOCCUS ... Complete 07/08/20 23:58 Nasal Nares MRSA Culture - Final Staphylococcus Aureus - Mrsa Complete Vanessa Edouard PA-C Jul 11, 2020 22:41
[2020-07-12] VITALS: BP 106/62
[2020-07-12] MEDS: Acetaminophen 650mg/20.3ml GT PRN ×2 (00:48→12:05)
--- NOTE | 2020-07-12 01:20 | NUR ---
NURSE NOTES: Patient noted to have a temperature of 101. Gave Tylenol to the patient. Current temperature now at 97.9
[2020-07-12 04:00] VITALS: BP 107/70
[2020-07-12] MEDS: D5 1/2NS w/KCl 40meq 1000ml 1,000 ML IV SCH (06:07)
--- NOTE | 2020-07-12 07:10 | NUR ---
NURSE NOTES: received patient report from elmira rn. patient is on bed asleep. not in acute distress.no arrythmias reported last night. on RA tolerating well. SR-ST on the monitor.on tube feedings running at prescribed rate. bed is low and locked for safety. will follow plan of care.
--- NOTE | 2020-07-12 07:30 | NUR ---
NURSE HAND-OFF REPORT: Important Events on Shift:[] Patient Status: [Stable] Diet: [Jevity 1.2] Pending Orders: [] Pending Results/Labs:[] Pending MD notification:[] Latest Vital Signs: Temperature 98.4 , Pulse 97 , B/P 107 /70 , Respiratory Rate 20 , O2 SAT 100 , Nasal Cannula, O2 Flow Rate 1.0 . Vital Sign Comment: [] EKG Rhythm: Sinus Rhythm Rhythm change?: N MD Notified?: N - MD Response: Latest Randolph Fall Score: 70 Fall Risk: High Risk Safety Measures: Call light Within Reach, Bed Alarm Zone 1, Side Rails Side Rails x2, Bed position Low and Locked. Fall Precautions: Yellow Socks Yellow Gown Door Sign Patient Fall Education Report given to [ANNY Daigle].
[2020-07-12 08:00] VITALS: BP 101/60
[2020-07-12 08:01] LABS: BASOPHILS % (AUTO) 0.7 % (0.0-2.0); EOSINOPHILS % (AUTO) 2.7 % (0.0-3.0); HEMATOCRIT 33.5 % (42.0-52.0); HEMOGLOBIN 10.7 G/DL (14.2-18.0); LYMPHOCYTES % (AUTO) 25.4 % (20.0-45.0); MEAN CORPUSCULAR VOLUME 79 FL (80-99); MONOCYTES % (AUTO) 9.6 % (1.0-10.0); NEUTROPHILS % (AUTO) 61.6 % (45.0-75.0); PLATELET COUNT 394 K/UL (150-450); RED BLOOD COUNT 4.21 M/UL (4.70-6.10); RED CELL DISTRIBUTION WIDTH 17.2 % (11.6-14.8); WHITE BLOOD COUNT 7.8 K/UL (4.8-10.8)
[2020-07-12 08:17] LABS: ANION GAP 8 mmol/L (5-15); BLOOD UREA NITROGEN 23 mg/dL (7-18); CALCIUM 9.9 MG/DL (8.5-10.1); CARBON DIOXIDE 24 MMOL/L (21-32); CHLORIDE 104 MMOL/L (98-107); CREATININE 1.1 MG/DL (0.55-1.30); POTASSIUM 4.6 MMOL/L (3.5-5.1); SODIUM 136 MMOL/L (136-145)
[2020-07-12] MEDS: Metoprolol Tartrate 12.5mg TAB GT SCH ×2 (08:25→21:54)
[2020-07-12] MEDS: Pantoprazole Inj IVP SCH (08:26)
--- NOTE | 2020-07-12 10:36 | Diagnostic Imaging Report ---
EXAM: US Duplex Bilateral Lower Extremities Veins CLINICAL HISTORY: DVT TECHNIQUE: Real-time duplex ultrasound scan of the bilateral lower extremity veins integrating B-mode two-dimensional vascular structure, Doppler spectral analysis, color flow Doppler imaging and compression. COMPARISON: No relevant prior studies available. FINDINGS: Right deep veins: Unremarkable. No DVT in the right common femoral, femoral, proximal deep femoral or popliteal veins. The veins demonstrate normal color flow, are normally compressible, with normal phasic flow and/or augmentation response. Right superficial veins: Unremarkable. No thrombus in the visualized right great saphenous vein. Left deep veins: Unremarkable. No DVT in the left common femoral, femoral, proximal deep femoral or popliteal veins. The veins demonstrate normal color flow, are normally compressible, with normal phasic flow and/or augmentation response. Left superficial veins: Unremarkable. No thrombus in the visualized left great saphenous vein. Soft tissues: No acute findings. No popliteal cyst. IMPRESSION: Normal bilateral lower extremity duplex venous ultrasound.
--- NOTE | 2020-07-12 11:03 | Infectious Diseases Prog Note ---
Assessment/Plan Assessment/Plan A; Sepsis E. coli UTI Anemia Pressure ulcers MRSA carrier CHF Dementia P: Continue Levaquin Subjective ROS Limited/Unobtainable: Yes Constitutional: Reports: fever, other - T=101.3 Allergies: Coded Allergies: CEFPROZIL (Verified Allergy, Unknown, 07/08/20) Objective Last 24 Hour Vital Signs Date Time Temp Pulse Resp B/P (MAP) Pulse Ox O2 Delivery O2 Flow Rate FiO2 07/12/20 08:25 105 101/60 07/12/20 08:00 101.3 105 18 101/60 (74) 100 07/12/20 08:00 104 07/12/20 07:55 Room Air 07/12/20 04:00 97 07/12/20 04:00 98.4 106 20 107/70 (82) 100 07/12/20 01:18 97.9 07/12/20 00:00 101.0 106 17 106/62 (77) 100 07/12/20 00:00 105 07/11/20 21:09 113 107/71 07/11/20 21:00 Room Air 07/11/20 20:00 99.9 113 18 107/71 (83) 98 07/11/20 20:00 110 07/11/20 16:00 97 07/11/20 16:00 98.8 104 19 120/75 (90) 100 07/11/20 12:00 95 07/11/20 12:00 97.3 102 20 119/67 (84) 100 Height (Feet): 5 Height (Inches): 6.00 Weight (Pounds): 150 HEENT: other - dry mouth Respiratory/Chest: lungs clear Cardiovascular: tachycardia Abdomen: soft, non tender, other - GT feeding Extremities: no edema Neurologic/Psychiatric: alert, normal mood/affect Musculoskeletal: atrophy Laboratory Tests Test 07/12/20 07:15 White Blood Count 7.8 K/UL (4.8-10.8) Red Blood Count 4.21 M/UL (4.70-6.10) L Hemoglobin 10.7 G/DL (14.2-18.0) L Hematocrit 33.5 % (42.0-52.0) L Mean Corpuscular Volume 79 FL (80-99) L Mean Corpuscular Hemoglobin 25.3 PG (27.0-31.0) L Mean Corpuscular Hemoglobin Concent 31.8 G/DL (32.0-36.0) L Red Cell Distribution Width 17.2 % (11.6-14.8) H Platelet Count 394 K/UL (150-450) Mean Platelet Volume 6.9 FL (6.5-10.1) Neutrophils (%) (Auto) 61.6 % (45.0-75.0) Lymphocytes (%) (Auto) 25.4 % (20.0-45.0) Monocytes (%) (Auto) 9.6 % (1.0-10.0) Eosinophils (%) (Auto) 2.7 % (0.0-3.0) Basophils (%) (Auto) 0.7 % (0.0-2.0) Sodium Level 136 MMOL/L (136-145) Potassium Level 4.6 MMOL/L (3.5-5.1) Chloride Level 104 MMOL/L (98-107) Carbon Dioxide Level 24 MMOL/L (21-32) Anion Gap 8 mmol/L (5-15) Blood Urea Nitrogen 23 mg/dL (7-18) H Creatinine 1.1 MG/DL (0.55-1.30) Estimat Glomerular Filtration Rate > 60 mL/min (>60) Glucose Level 98 MG/DL (74-106) Calcium Level 9.9 MG/DL (8.5-10.1) Current Medications Medications (Trade) Dose Ordered Sig/Giovanny Route PRN Reason Start Time Stop Time Status Last Admin Dose Admin Acetaminophen (Tylenol) 650 mg Q4H PRN GT Mild Pain (Pain Scale 1-3) 07/09/20 10:15 08/08/20 10:14 Acetaminophen (Tylenol) 650 mg Q6H PRN GT Temp >100.5 07/09/20 01:30 08/08/20 01:29 07/12/20 00:48 Dextrose/ Electrolytes 1,000 ml @ 50 mls/hr Q20H IV 07/10/20 13:00 08/09/20 12:59 07/12/20 06:07 Furosemide (Lasix) 20 mg DAILY IV 07/11/20 09:00 08/10/20 08:59 07/12/20 08:26 Levofloxacin 100 ml @ 100 mls/hr Q24H IVPB 07/09/20 12:00 07/16/20 11:59 07/11/20 12:08 Metoprolol Tartrate (Lopressor) 12.5 mg Q12HR GT 07/10/20 21:00 10/08/20 20:59 07/11/20 21:09 Pantoprazole (Protonix) 40 mg EVERY 12 HOURS IVP 07/09/20 21:00 08/08/20 20:59 07/12/20 08:26 Filemon Morejon MD Jul 12, 2020 11:03
--- NOTE | 2020-07-12 11:11 | Pulmonology Progress Note ---
Subjective ROS Limited/Unobtainable: Yes Interval Events: Hgb better Constitutional: Reports: fever, other - T=101.3 HEENT: Repors: no symptoms Respiratory: Reports: no symptoms Cardiovascular: Reports: no symptoms Gastrointestinal/Abdominal: Reports: no symptoms Allergies: Coded Allergies: CEFPROZIL (Verified Allergy, Unknown, 07/08/20) Objective Last 24 Hour Vital Signs Date Time Temp Pulse Resp B/P (MAP) Pulse Ox O2 Delivery O2 Flow Rate FiO2 07/12/20 08:25 105 101/60 07/12/20 08:00 101.3 105 18 101/60 (74) 100 07/12/20 08:00 104 07/12/20 07:55 Room Air 07/12/20 04:00 97 07/12/20 04:00 98.4 106 20 107/70 (82) 100 07/12/20 01:18 97.9 07/12/20 00:00 101.0 106 17 106/62 (77) 100 07/12/20 00:00 105 07/11/20 21:09 113 107/71 07/11/20 21:00 Room Air 07/11/20 20:00 99.9 113 18 107/71 (83) 98 07/11/20 20:00 110 07/11/20 16:00 97 07/11/20 16:00 98.8 104 19 120/75 (90) 100 07/11/20 12:00 95 07/11/20 12:00 97.3 102 20 119/67 (84) 100 Intake and Output 07/11/20 07/12/20 19:00 07:00 Intake Total 560 ml Output Total 550 ml Balance 10 ml Intake Free Water 120 ml Tube Feeding 440 ml Output Urine Total 550 ml # Voids 2 # Bowel Movements 2 1 General Appearance: no acute distress HEENT: atraumatic Respiratory: lungs clear Cardiovascular: normal rate Abdomen: soft, non tender Laboratory Tests 07/12/20 07:15: White Blood Count 7.8, Red Blood Count 4.21L, Hemoglobin 10.7L, Hematocrit 33.5L , Mean Corpuscular Volume 79L, Mean Corpuscular Hemoglobin 25.3L, Mean Corpuscular Hemoglobin Concent 31.8L, Red Cell Distribution Width 17.2H, Platelet Count 394, Mean Platelet Volume 6.9, Neutrophils (%) (Auto) 61.6, Lymphocytes (%) (Auto) 25.4, Monocytes (%) (Auto) 9.6, Eosinophils (%) (Auto) 2.7, Basophils (%) (Auto) 0.7, Sodium Level 136, Potassium Level 4.6, Chloride Level 104, Carbon Dioxide Level 24, Anion Gap 8, Blood Urea Nitrogen 23H, Creatinine 1.1, Estimat Glomerular Filtration Rate > 60, Glucose Level 98, Calcium Level 9.9 Current Medications Medications (Trade) Dose Ordered Sig/Giovanny Route PRN Reason Start Time Stop Time Status Last Admin Dose Admin Acetaminophen (Tylenol) 650 mg Q4H PRN GT Mild Pain (Pain Scale 1-3) 07/09/20 10:15 08/08/20 10:14 Acetaminophen (Tylenol) 650 mg Q6H PRN GT Temp >100.5 07/09/20 01:30 08/08/20 01:29 07/12/20 00:48 Dextrose/ Electrolytes 1,000 ml @ 50 mls/hr Q20H IV 07/10/20 13:00 08/09/20 12:59 07/12/20 06:07 Furosemide (Lasix) 20 mg DAILY IV 07/11/20 09:00 08/10/20 08:59 07/12/20 08:26 Levofloxacin 100 ml @ 100 mls/hr Q24H IVPB 07/09/20 12:00 07/16/20 11:59 07/11/20 12:08 Metoprolol Tartrate (Lopressor) 12.5 mg Q12HR GT 07/10/20 21:00 10/08/20 20:59 07/11/20 21:09 Pantoprazole (Protonix) 40 mg EVERY 12 HOURS IVP 07/09/20 21:00 08/08/20 20:59 07/12/20 08:26 Assessment/Plan Assessment/Plan 1. Anemia - Hgb better, s/p 2 units of PRBC - GI consulted - now off heparin 2. Hypoxia on arrival - now on RA saturating at 100% - continue monitor for hypoxia and provide supplemental oxygen as needed 3. COVID-19 negative 4. Sepsis, likely secondary to UTI, HCAP - on Levofloxacin; now off Zosyn - UCx grew E. Coli 5. ILA, electrolyte abnormality - nephro following 6. CHF exacerbation - seen by cardio - on IV Lasix 20 mg QD - EF 65% - CXR 07/11 no acute process 7. MRSA nasal - contact precaution 8. DVT ppx - Venous duplex US neg for DVT - on SCD Plan DC back to SNF if tomorrow's labs stable The care for this patient was discussed with my supervising physician Time spent for this case was approximately 31 minutes Bandar Hansen Jul 12, 2020 11:11
[2020-07-12 11:37] VITALS: BP 98/82
--- NOTE | 2020-07-12 12:12 | Surgery Progress Note ---
Surgery Progress Note Subjective Additional Comments no acute events labs noted exam stable Objective Last 24 Hour Vital Signs Date Time Temp Pulse Resp B/P (MAP) Pulse Ox O2 Delivery O2 Flow Rate FiO2 07/12/20 11:37 101.0 112 18 98/82 (87) 100 07/12/20 08:25 105 101/60 07/12/20 08:00 101.3 105 18 101/60 (74) 100 07/12/20 08:00 104 07/12/20 07:55 Room Air 07/12/20 04:00 97 07/12/20 04:00 98.4 106 20 107/70 (82) 100 07/12/20 01:18 97.9 07/12/20 00:00 101.0 106 17 106/62 (77) 100 07/12/20 00:00 105 07/11/20 21:09 113 107/71 07/11/20 21:00 Room Air 07/11/20 20:00 99.9 113 18 107/71 (83) 98 07/11/20 20:00 110 07/11/20 16:00 97 07/11/20 16:00 98.8 104 19 120/75 (90) 100 I&O Intake and Output 07/11/20 07/12/20 19:00 07:00 Intake Total 560 ml Output Total 550 ml Balance 10 ml Intake Free Water 120 ml Tube Feeding 440 ml Output Urine Total 550 ml # Voids 2 # Bowel Movements 2 1 Dressing: saturated Cardiovascular: RSR Respiratory: clear, decreased breath sounds Abdomen: soft, non-tender, present bowel sounds Extremities: no edema, no tenderness, no cyanosis Laboratory Tests Test 07/12/20 07:15 White Blood Count 7.8 K/UL (4.8-10.8) Red Blood Count 4.21 M/UL (4.70-6.10) L Hemoglobin 10.7 G/DL (14.2-18.0) L Hematocrit 33.5 % (42.0-52.0) L Mean Corpuscular Volume 79 FL (80-99) L Mean Corpuscular Hemoglobin 25.3 PG (27.0-31.0) L Mean Corpuscular Hemoglobin Concent 31.8 G/DL (32.0-36.0) L Red Cell Distribution Width 17.2 % (11.6-14.8) H Platelet Count 394 K/UL (150-450) Mean Platelet Volume 6.9 FL (6.5-10.1) Neutrophils (%) (Auto) 61.6 % (45.0-75.0) Lymphocytes (%) (Auto) 25.4 % (20.0-45.0) Monocytes (%) (Auto) 9.6 % (1.0-10.0) Eosinophils (%) (Auto) 2.7 % (0.0-3.0) Basophils (%) (Auto) 0.7 % (0.0-2.0) Sodium Level 136 MMOL/L (136-145) Potassium Level 4.6 MMOL/L (3.5-5.1) Chloride Level 104 MMOL/L (98-107) Carbon Dioxide Level 24 MMOL/L (21-32) Anion Gap 8 mmol/L (5-15) Blood Urea Nitrogen 23 mg/dL (7-18) H Creatinine 1.1 MG/DL (0.55-1.30) Estimat Glomerular Filtration Rate > 60 mL/min (>60) Glucose Level 98 MG/DL (74-106) Calcium Level 9.9 MG/DL (8.5-10.1) Plan Problems: (1) Decubitus skin ulcer Assessment & Plan: Pt presented on admission with Contractures, Multiple Pressure Injuries .Pt is receiving Oxygen via NC. Both ears assessed and no evidence of Skin Breakdown noted. Full Thickness stage 4Pressure Injury L Buttocks (L)1.5cm x (W)1.4cm x (D) 0.2cm. Base of wound is 90% moist,sonia;10% slough. Non-Blanchable erythema along borders and periwound. DTPI Sacrococcygeal area (L)1.5cm x (W)0.8cm. Base of wound is maroon and indurated with surrounding non-blanchable erythema. DTPI L Trochanter(L)1.5cm x (W)0.8cm. Base of Pressure Injury is maroon and indurated.Surrounding Non-Blanchable erythema with delineated margins(L)8.5cm x (W)9cm. Unstageable Pressure Injury Plantar R Heel (L)2.5cm x (W)1.4cm. Stable dry eschar noted. Periwound is blanchable. Non-Blanchable erythema with fluctuance medial R Malleolus (L)4.5cm x (W)3cm. DTPI R Hallux (L)3cm x (W)2.4cm. Base of Pressure Injury is maroon and fluctuant. DTPI L lateral Malleolus(L)3cm x (W)3.5cm. Base of Pressure Injury is maroon and fluctuant. Tx.Plan: Cleanse wound L Buttocks with Saline. Apply TheraHoney. Apply Moisture Barrier Periwound. Cover with Optifoam drsg. Change Daily and prn. Apply Triad Paste to Sacrum. Cover with Optifoam drsg. Change every 3 days and prn. Apply Cavilon Skin Barrier to R and L trochanteric. Cover each site with Optifoam drsgs Change every 7 days and PRN. Apply Cavilon Skin BArrier to L Heel,Malleoli,Hallux. Cover each site with Optifoam drsgs. Change every 7 days and prn. Apply Cavilon Skin BArrier to R Heel , Malleoli ,Hallux. Cover each site with Optifoam drsgs. Change every 7 days and prn. Reposition at least every 2hours or as tolerated. Off-load heels with Pillow. APM/MARIA Mattress Overlay. (2) HCAP (healthcare-associated pneumonia) (3) Sepsis Assessment & Plan: lactic acidosis, elevated lft's abnormal labs renal insufficiency hypoxia -renal input appreciated -O2 supplement cxr noted cont abx steroids trend labs fluids thank you DAILY ESTIMATED NEEDS: Needs based on Wounds, 60kg 30-35kcal/kg kcals/kg 7214-2598 total kcals 1.5-2.0 g protein/kg 90-120 g total protein 25-30 mL/kg 9700-1695 total fluid mLs NUTRITION DIAGNOSIS: Increased kcal/prot needs R/T wound healing as evidenced by pt admitted w/ multiple wounds including stage 4 lt buttock wound and DTPI wounds @ sacrococcyx, L trochanter, R hallux, L lateral malleolus. CURRENT TF:NPO ENTERAL NUTRITION RECOMMENDATIONS: Osmolite 1.5 @ 55ml/hr x 24 hrs + Prosource 1pkt QD to provide 1320ml, 1980kcal, 83g +11g prot, 1006ml free water * As medically appropriate, initiate Osmolite 1.5 @ 15ml/hr x 6hrs * Advance 10ml q 4-6 hrs as tolerated to goal * Add Prosource 1pkt QD for additional 11g prot * HOB over 30 degrees/ water flush per MD ADDITIONAL RECOMMENDATIONS: * Daily calibrated bedscale wt: CHF dx, on lasix * Wound healing: Add Vit C 500mg BID, ZnSO4 220mg QD x 10 days TF @ goal will provide 100 % RDI Add El BID via PEG * Monitor lytes, replete as needed (4) UTI (urinary tract infection) Saleem Juan Jul 12, 2020 12:11
--- NOTE | 2020-07-12 13:03 | NUR ---
INSURANCE CLINICALS/ FA[place] [facility] [place] [phone] [place] [phone].
--- NOTE | 2020-07-12 14:18 | Nephrology Progress Note ---
Assessment/Plan Problem List: (1) ILA (acute kidney injury) (2) Dehydration (3) Sepsis (4) Anemia Assessment Acute renal failure Dehydration, hypercalcemia Hyperkalemia Anemia, low MCV Sepsis, UTI, healthcare associated pneumonia Plan July 12: Labs reviewed. Hemoglobin 10.7. Electrolytes and renal parameters within normal limits. Continue as is. IV fluid and IV Lasix discontinued. Albumin bolus given. As needed midodrine given. July 11: Labs reviewed. Hemoglobin higher after transfusion. Electrolytes and renal parameters within normal limits. Continue per current treatment plan. Blood pressure stable July 10: Creatinine of 1.4 down to 1.1. Electrolytes noted and abnormalities addressed. Patient on 50 cc an hour IV fluid. Remains NPO. Significant drop in hemoglobin. Transfusion ordered by consultants. Continue to monitor renal parameters and electrolytes. 2D echo results noted. Ejection fraction 65%. Albumin bolus given. Previously: Slow hydrate Monitor renal parameters and electrolytes Anemia work-up Antibiotics Avoid nephrotoxic's Monitor urine output Per orders Subjective ROS Limited/Unobtainable: No Constitutional: Reports: malaise, weakness Objective Objective Last 24 Hour Vital Signs Date Time Temp Pulse Resp B/P (MAP) Pulse Ox O2 Delivery O2 Flow Rate FiO2 07/12/20 12:35 100.0 07/12/20 12:20 105 07/12/20 11:37 101.0 112 18 98/82 (87) 100 07/12/20 08:25 105 101/60 07/12/20 08:00 101.3 105 18 101/60 (74) 100 07/12/20 08:00 104 07/12/20 07:55 Room Air 07/12/20 04:00 97 07/12/20 04:00 98.4 106 20 107/70 (82) 100 07/12/20 01:18 97.9 07/12/20 00:00 101.0 106 17 106/62 (77) 100 07/12/20 00:00 105 07/11/20 21:09 113 107/71 07/11/20 21:00 Room Air 07/11/20 20:00 99.9 113 18 107/71 (83) 98 07/11/20 20:00 110 07/11/20 16:00 97 07/11/20 16:00 98.8 104 19 120/75 (90) 100 Intake and Output 07/11/20 07/12/20 19:00 07:00 Intake Total 560 ml Output Total 550 ml Balance 10 ml Intake Free Water 120 ml Tube Feeding 440 ml Output Urine Total 550 ml # Voids 2 # Bowel Movements 2 1 Current Medications Medications (Trade) Dose Ordered Sig/Giovanny Route PRN Reason Start Time Stop Time Status Last Admin Dose Admin Acetaminophen (Tylenol) 650 mg Q4H PRN GT Mild Pain (Pain Scale 1-3) 07/09/20 10:15 08/08/20 10:14 Acetaminophen (Tylenol) 650 mg Q6H PRN GT Temp >100.5 07/09/20 01:30 08/08/20 01:29 07/12/20 12:05 Dextrose/ Electrolytes 1,000 ml @ 50 mls/hr Q20H IV 07/10/20 13:00 08/09/20 12:59 07/12/20 06:07 Furosemide (Lasix) 20 mg DAILY IV 07/11/20 09:00 08/10/20 08:59 07/12/20 08:26 Levofloxacin 100 ml @ 100 mls/hr Q24H IVPB 07/09/20 12:00 07/16/20 11:59 07/12/20 12:11 Metoprolol Tartrate (Lopressor) 12.5 mg Q12HR GT 07/10/20 21:00 10/08/20 20:59 07/11/20 21:09 Pantoprazole (Protonix) 40 mg EVERY 12 HOURS IVP 07/09/20 21:00 08/08/20 20:59 07/12/20 08:26 Laboratory Tests 07/12/20 07:15: White Blood Count 7.8, Red Blood Count 4.21L, Hemoglobin 10.7L, Hematocrit 33.5L , Mean Corpuscular Volume 79L, Mean Corpuscular Hemoglobin 25.3L, Mean Corpuscular Hemoglobin Concent 31.8L, Red Cell Distribution Width 17.2H, Platelet Count 394, Mean Platelet Volume 6.9, Neutrophils (%) (Auto) 61.6, Lymphocytes (%) (Auto) 25.4, Monocytes (%) (Auto) 9.6, Eosinophils (%) (Auto) 2.7, Basophils (%) (Auto) 0.7, Sodium Level 136, Potassium Level 4.6, Chloride Level 104, Carbon Dioxide Level 24, Anion Gap 8, Blood Urea Nitrogen 23H, Crea tinine 1.1, Estimat Glomerular Filtration Rate > 60, Glucose Level 98, Calcium Level 9.9 Height (Feet): 5 Height (Inches): 6.00 Weight (Pounds): 150 Cardiovascular: normal rate Respiratory/Chest: decreased breath sounds Abdomen: distended Kyaw Leal MD Jul 12, 2020 14:18
[2020-07-12] MEDS: Midodrine 10mg tab NG SCH ×2 (14:40→23:06)
[2020-07-12 16:00] VITALS: BP 103/62
--- NOTE | 2020-07-12 19:34 | NUR ---
NURSE HAND-OFF REPORT: Important Events on Shift:stable Patient Status: full code Diet:tube feeds Pending Orders: [] Pending Results/Labs:[] Pending MD notification:[] Latest Vital Signs: Temperature 98.8 , Pulse 87 , B/P 103 /62 , Respiratory Rate 18 , O2 SAT 100 , Nasal Cannula, O2 Flow Rate 1.0 . Vital Sign Comment: bp on the low side, started midodrine & 500 of 5% albumin given EKG Rhythm: Sinus Rhythm Rhythm change?: N MD Notified?: N - MD Response: Latest Randolph Fall Score: 70 Fall Risk: High Risk Safety Measures: Call light Within Reach, Bed Alarm Zone 2, Side Rails Side Rails x3, Bed position Low and Locked. Fall Precautions: Yellow Socks Yellow Gown Door Sign Patient Fall Education Report given to black palmer.
--- NOTE | 2020-07-12 19:40 | NUR ---
NURSE NOTES: Patient received from Oxana MCCORMICK. Patient is A/O x 1, and is confused. Patient is on room air with no signs of acute respiratory distress noted, satting at 98%. Patient has a GT, patent and flushed, no residual noted. Jevity 1.2 is running at 40 ml/hr. Patient has a 16 qatari lea, patent and well draining alan gravity. Victoria has a 20 gauge IV on his forearm, s/l patent and flushed, no bleeding or erythema noted at this time. Bed is in the lowest position, call light within reach. Will continue to monitor.
[2020-07-12 20:00] VITALS: BP 113/65
--- NOTE | 2020-07-12 23:01 | Cardiology Progress Note ---
Assessment/Plan Status Narrative SR, rate and SBP in normal territory. Assessment/Plan 1. PNA and developing sepsis 2. CHF with elevated BNP diuresis as tolerated with IV Lasix Bb for rate control 3. Dehydration and electrolyte imbalance 4. Sinus tachycardia 5. Anemia - acute on chronic Hgb improved 6. UTI 7. Aphasia 8. Dementia and h/o psych disorder Subjective ROS Limited/Unobtainable: No Subjective Brought in by EMS from snf facility. PMHx dementia, psych disorder, CKD, anemia, HF, former smoker, h/o CVA. Nonverbal at baseline. Hypoxic on room air. Tachycardic. Febrile. Covid PCR still pending. BNP elevated, troponin negative. We are asked to see the pt for evaluation of cardiac issues. Objective Last 24 Hour Vital Signs Date Time Temp Pulse Resp B/P (MAP) Pulse Ox O2 Delivery O2 Flow Rate FiO2 07/12/20 21:54 97 113/65 07/12/20 21:00 Room Air 07/12/20 20:00 97 07/12/20 20:00 99.5 97 16 113/65 (81) 100 07/12/20 16:00 98.8 89 18 103/62 (76) 100 07/12/20 16:00 87 07/12/20 12:35 100.0 07/12/20 12:20 105 07/12/20 11:37 101.0 112 18 98/82 (87) 100 07/12/20 08:25 105 101/60 07/12/20 08:00 101.3 105 18 101/60 (74) 100 07/12/20 08:00 104 07/12/20 07:55 Room Air 07/12/20 04:00 97 07/12/20 04:00 98.4 106 20 107/70 (82) 100 07/12/20 01:18 97.9 07/12/20 00:00 101.0 106 17 106/62 (77) 100 07/12/20 00:00 105 General Appearance: no apparent distress EENT: PERRL/EOMI Neck: no JVD Rhythm: NSR Cardiovascular: normal rate, regular rhythm Respiratory/Chest: crackles/rales Abdomen: soft Extremities: non-tender Neurologic: disoriented Intake and Output 07/11/20 07/12/20 19:00 07:00 Intake Total 560 ml Output Total 550 ml Balance 10 ml Intake Free Water 120 ml Tube Feeding 440 ml Output Urine Total 550 ml # Voids 2 # Bowel Movements 2 1 Laboratory Tests Test 07/12/20 07:15 White Blood Count 7.8 K/UL (4.8-10.8) Red Blood Count 4.21 M/UL (4.70-6.10) L Hemoglobin 10.7 G/DL (14.2-18.0) L Hematocrit 33.5 % (42.0-52.0) L Mean Corpuscular Volume 79 FL (80-99) L Mean Corpuscular Hemoglobin 25.3 PG (27.0-31.0) L Mean Corpuscular Hemoglobin Concent 31.8 G/DL (32.0-36.0) L Red Cell Distribution Width 17.2 % (11.6-14.8) H Platelet Count 394 K/UL (150-450) Mean Platelet Volume 6.9 FL (6.5-10.1) Neutrophils (%) (Auto) 61.6 % (45.0-75.0) Lymphocytes (%) (Auto) 25.4 % (20.0-45.0) Monocytes (%) (Auto) 9.6 % (1.0-10.0) Eosinophils (%) (Auto) 2.7 % (0.0-3.0) Basophils (%) (Auto) 0.7 % (0.0-2.0) Sodium Level 136 MMOL/L (136-145) Potassium Level 4.6 MMOL/L (3.5-5.1) Chloride Level 104 MMOL/L (98-107) Carbon Dioxide Level 24 MMOL/L (21-32) Anion Gap 8 mmol/L (5-15) Blood Urea Nitrogen 23 mg/dL (7-18) H Creatinine 1.1 MG/DL (0.55-1.30) Estimat Glomerular Filtration Rate > 60 mL/min (>60) Glucose Level 98 MG/DL (74-106) Calcium Level 9.9 MG/DL (8.5-10.1) Vanessa Edouard PA-C Jul 12, 2020 23:01
--- NOTE | 2020-07-12 23:16 | NUR ---
NURSE NOTES: G-tube patent flushed, no residue at this time.
[2020-07-13] VITALS: BP 115/67
[2020-07-13 04:00] VITALS: BP 94/60
[2020-07-13] MEDS: Midodrine 10mg tab NG SCH ×3 (05:27→23:00)
--- NOTE | 2020-07-13 06:31 | NUR ---
NURSE HAND-OFF REPORT: Important Events on Shift: Patient G-tube feeding was changed, patient had a BM, lea catheter in place draing well the gravity. Patient Status: no SOB noted Diet: Jevity 1.2 @ 40ml/he Pending Orders: Pending Results/Labs: Pending MD notification: Latest Vital Signs: Temperature 100.0 , Pulse 95 , B/P 94 /60 , Respiratory Rate 20 , O2 SAT 99 , Nasal Cannula, O2 Flow Rate 1.0 . Vital Sign Comment: EKG Rhythm: Sinus Rhythm Rhythm change?: N MD Notified?: N - MD Response: Latest Randolph Fall Score: 70 Fall Risk: High Risk Safety Measures: Call light Within Reach, Bed Alarm Zone 2, Side Rails Side Rails x3, Bed position Low and Locked. Fall Precautions: Yellow Socks Yellow Gown Door Sign Patient Fall Education Report to be given . Addendum: 07/13/20 at 0725 by Annie Preciado RN Report given to CORRINE MCCORMICK.
[2020-07-13 07:04] LABS: BASOPHILS % (AUTO) 0.7 % (0.0-2.0); EOSINOPHILS % (AUTO) 1.8 % (0.0-3.0); HEMATOCRIT 27.6 % (42.0-52.0); HEMOGLOBIN 8.7 G/DL (14.2-18.0); LYMPHOCYTES % (AUTO) 26.4 % (20.0-45.0); MEAN CORPUSCULAR VOLUME 79 FL (80-99); MONOCYTES % (AUTO) 7.5 % (1.0-10.0); NEUTROPHILS % (AUTO) 63.7 % (45.0-75.0); PLATELET COUNT 421 K/UL (150-450); RED BLOOD COUNT 3.49 M/UL (4.70-6.10); RED CELL DISTRIBUTION WIDTH 16.9 % (11.6-14.8); WHITE BLOOD COUNT 9.6 K/UL (4.8-10.8)
--- NOTE | 2020-07-13 07:26 | NUR ---
NURSE NOTES: Received patient in bed asleep. No SOB or acute distress. IV line intact. Gtube intact, feeding ongoing. FC intact, draining yellow colored urine. HOB elevated. Bed locked in low position. Call light within reach. Will continue plan of care.
[2020-07-13 07:50] VITALS: BP 118/76
[2020-07-13 07:54] LABS: ALANINE AMINOTRANSFERASE 31 U/L (12-78); ALBUMIN 1.9 G/DL (3.4-5.0); ALBUMIN/GLOBULIN RATIO 0.4 (1.0-2.7); ALKALINE PHOSPHATASE 164 U/L (46-116); ANION GAP 8 mmol/L (5-15); ASPARTATE AMINO TRANSFERASE 31 U/L (15-37); BILIRUBIN,TOTAL 0.5 MG/DL (0.2-1.0); BLOOD UREA NITROGEN 20 mg/dL (7-18); CARBON DIOXIDE 23 MMOL/L (21-32); CHLORIDE 103 MMOL/L (98-107); CREATININE 0.9 MG/DL (0.55-1.30); PHOSPHORUS 3.5 MG/DL (2.5-4.9); POTASSIUM 3.6 MMOL/L (3.5-5.1); SODIUM 134 MMOL/L (136-145)
[2020-07-13] MEDS: Metoprolol Tartrate 12.5mg TAB GT SCH ×2 (08:07→20:11)
--- NOTE | 2020-07-13 08:10 | NUR ---
RD ASSESSMENT & RECOMMENDATIONS SEE CARE ACTIVITY FOR COMPLETE ASSESSMENT DAILY ESTIMATED NEEDS: Needs based on Wounds, 60kg 30-35kcal/kg kcals/kg 3702-2293 total kcals 1.5-2.0 g protein/kg 90-120 g total protein 25-30 mL/kg 5807-1639 total fluid mLs NUTRITION DIAGNOSIS: Increased kcal/prot needs R/T wound healing as evidenced by pt admitted w/ multiple wounds including stage 4 lt buttock wound and DTPI wounds @ sacrococcyx, L trochanter, R hallux, L lateral malleolus. CURRENT TF: Now Jevity 1.2 @40ml/hr ENTERAL NUTRITION RECOMMENDATIONS: Osmolite 1.5 @ 55ml/hr x 24 hrs + Prosource 1pkt QD to provide 1320ml, 1980kcal, 83g +11g prot, 1006ml free water * rec TF change to better meet est kcal and pro needs. Initiate Osmolite 1.5 @ 25ml/hr x 6hrs, advance 10ml q 4-6 hrs as tolerated to goal * Add Prosource 1pkt QD for additional 11g prot * HOB over 30 degrees/ water flush per MD ADDITIONAL RECOMMENDATIONS: * Daily calibrated bedscale wt: CHF dx, on lasix * Wound healing: Add Vit C 500mg BID, ZnSO4 220mg QD x 10 days TF @ goal will provide 100 % RDI Add El BID via PEG * Monitor lytes, replete as needed
--- NOTE | 2020-07-13 10:55 | NUR ---
INSURANCE CLINICALS/ FAXED TO [facility] [place] [phone] FX [phone].
--- NOTE | 2020-07-13 11:39 | NUR ---
DISCHARGE PLANNING CLINICALS FAXED TO [facility] [phone]
--- NOTE | 2020-07-13 11:54 | Pulmonology Progress Note ---
Subjective ROS Limited/Unobtainable: No Interval Events: Hgb better Constitutional: Reports: fever, other - T=100.0 HEENT: Repors: no symptoms Respiratory: Reports: no symptoms Cardiovascular: Reports: no symptoms Gastrointestinal/Abdominal: Reports: no symptoms Allergies: Coded Allergies: CEFPROZIL (Verified Allergy, Unknown, 07/08/20) Objective Last 24 Hour Vital Signs Date Time Temp Pulse Resp B/P (MAP) Pulse Ox O2 Delivery O2 Flow Rate FiO2 07/13/20 09:00 Room Air 07/13/20 08:07 92 118/76 07/13/20 08:00 89 07/13/20 07:50 98.1 92 20 118/76 (90) 96 07/13/20 05:00 99.8 07/13/20 04:00 100.0 95 20 94/60 (71) 99 07/13/20 03:49 96 07/13/20 00:05 106 07/13/20 00:00 97.6 94 16 115/67 (83) 99 07/12/20 21:54 97 113/65 07/12/20 21:00 Room Air 07/12/20 20:00 97 07/12/20 20:00 99.5 97 16 113/65 (81) 100 07/12/20 16:00 98.8 89 18 103/62 (76) 100 07/12/20 16:00 87 07/12/20 12:35 100.0 07/12/20 12:20 105 Intake and Output 07/12/20 07/13/20 19:00 07:00 Intake Total 1550 ml 440 ml Output Total 1150 ml 700 ml Balance 400 ml -260 ml Intake Free Water 80 ml IV Total 950 ml Tube Feeding 520 ml 440 ml Output Urine Total 1150 ml 700 ml # Bowel Movements 2 2 General Appearance: no acute distress HEENT: atraumatic Respiratory: lungs clear Cardiovascular: normal rate Abdomen: soft, non tender Laboratory Tests 07/13/20 06:30: White Blood Count 9.6, Red Blood Count 3.49L, Hemoglobin 8.7L, Hematocrit 27.6L, Mean Corpuscular Volume 79L, Mean Corpuscular Hemoglobin 24.9L, Mean Corpuscular Hemoglobin Concent 31.4L, Red Cell Distribution Width 16.9H, Platelet Count 421, Mean Platelet Volume 6.7, Neutrophils (%) (Auto) 63.7, Lymphocytes (%) (Auto) 26.4, Monocytes (%) (Auto) 7.5, Eosinophils (%) (Auto) 1.8, Basophils (%) (Auto) 0.7, Sodium Level 134L, Potassium Level 3.6, Chloride Level 103, Carbon Dioxide Level 23, Anion Gap 8, Blood Urea Nitrogen 20H, Creatinine 0.9, Estimat Glomerular Filtration Rate > 60, Glucose Level 86, Calcium Level 10.0, Phosphorus Level 3.5, Magnesium Level 1.9, Total Bilirubin 0.5, Aspartate Amino Transf (AST/SGOT) 31, Alanine Aminotransferase (ALT/SGPT) 31, Alkaline Phosphatase 164H, C-Reactive Protein, Quantitative 26.5H, Pro-B-Type Natriuretic Peptide 1126H, Total Protein 6.8, Albumin 1.9L, Globulin 4.9, Albumin/Globulin Ratio 0.4L Current Medications Medications (Trade) Dose Ordered Sig/Giovanny Route PRN Reason Start Time Stop Time Status Last Admin Dose Admin Acetaminophen (Tylenol) 650 mg Q4H PRN GT Mild Pain (Pain Scale 1-3) 07/09/20 10:15 08/08/20 10:14 Acetaminophen (Tylenol) 650 mg Q6H PRN GT Temp >100.5 07/09/20 01:30 08/08/20 01:29 07/12/20 12:05 Famotidine (Pepcid) 20 mg BID GT 07/12/20 18:00 10/10/20 17:59 07/13/20 08:07 Levofloxacin 100 ml @ 100 mls/hr Q24H IVPB 07/09/20 12:00 07/16/20 11:59 07/12/20 12:11 Metoprolol Tartrate (Lopressor) 12.5 mg Q12HR GT 07/10/20 21:00 10/08/20 20:59 07/13/20 08:07 Midodrine (Pro-Amatine) 10 mg Q8HR NG 07/12/20 14:30 10/10/20 14:29 07/13/20 05:27 Assessment/Plan Assessment/Plan 1. Anemia - Hgb better, s/p 2 units of PRBC - GI consulted - now off heparin 2. Hypoxia on arrival - now on RA saturating at 100% - continue monitor for hypoxia and provide supplemental oxygen as needed 3. COVID-19 negative 4. Sepsis, likely secondary to UTI, HCAP - on Levofloxacin; now off Zosyn - UCx grew E. Coli 5. ILA, electrolyte abnormality - nephro following 6. CHF exacerbation - seen by cardio - on IV Lasix 20 mg QD - EF 65% - CXR 07/11 no acute process 7. MRSA nasal - contact precaution 8. DVT ppx - Venous duplex US neg for DVT - on SCD Hold DC plan to SNF given fever and dropping H&H The care for this patient was discussed with my supervising physician Time spent for this case was approximately 31 minutes Bandar Hansen Jul 13, 2020 11:54
[2020-07-13 12:00] VITALS: BP 98/63
--- NOTE | 2020-07-13 12:17 | Surgery Progress Note ---
Surgery Progress Note Subjective Additional Comments stable comfortable lea in place uop good Objective Last 24 Hour Vital Signs Date Time Temp Pulse Resp B/P (MAP) Pulse Ox O2 Delivery O2 Flow Rate FiO2 07/13/20 09:00 Room Air 07/13/20 08:07 92 118/76 07/13/20 08:00 89 07/13/20 07:50 98.1 92 20 118/76 (90) 96 07/13/20 05:00 99.8 07/13/20 04:00 100.0 95 20 94/60 (71) 99 07/13/20 03:49 96 07/13/20 00:05 106 07/13/20 00:00 97.6 94 16 115/67 (83) 99 07/12/20 21:54 97 113/65 07/12/20 21:00 Room Air 07/12/20 20:00 97 07/12/20 20:00 99.5 97 16 113/65 (81) 100 07/12/20 16:00 98.8 89 18 103/62 (76) 100 07/12/20 16:00 87 07/12/20 12:35 100.0 07/12/20 12:20 105 I&O Intake and Output 07/12/20 07/13/20 19:00 07:00 Intake Total 1550 ml 440 ml Output Total 1150 ml 700 ml Balance 400 ml -260 ml Intake Free Water 80 ml IV Total 950 ml Tube Feeding 520 ml 440 ml Output Urine Total 1150 ml 700 ml # Bowel Movements 2 2 Dressing: saturated Cardiovascular: RSR Respiratory: decreased breath sounds Abdomen: soft, flat, non-tender, present bowel sounds Extremities: no edema, no cyanosis Laboratory Tests Test 07/13/20 06:30 White Blood Count 9.6 K/UL (4.8-10.8) Red Blood Count 3.49 M/UL (4.70-6.10) L Hemoglobin 8.7 G/DL (14.2-18.0) L Hematocrit 27.6 % (42.0-52.0) L Mean Corpuscular Volume 79 FL (80-99) L Mean Corpuscular Hemoglobin 24.9 PG (27.0-31.0) L Mean Corpuscular Hemoglobin Concent 31.4 G/DL (32.0-36.0) L Red Cell Distribution Width 16.9 % (11.6-14.8) H Platelet Count 421 K/UL (150-450) Mean Platelet Volume 6.7 FL (6.5-10.1) Neutrophils (%) (Auto) 63.7 % (45.0-75.0) Lymphocytes (%) (Auto) 26.4 % (20.0-45.0) Monocytes (%) (Auto) 7.5 % (1.0-10.0) Eosinophils (%) (Auto) 1.8 % (0.0-3.0) Basophils (%) (Auto) 0.7 % (0.0-2.0) Sodium Level 134 MMOL/L (136-145) L Potassium Level 3.6 MMOL/L (3.5-5.1) Chloride Level 103 MMOL/L (98-107) Carbon Dioxide Level 23 MMOL/L (21-32) Anion Gap 8 mmol/L (5-15) Blood Urea Nitrogen 20 mg/dL (7-18) H Creatinine 0.9 MG/DL (0.55-1.30) Estimat Glomerular Filtration Rate > 60 mL/min (>60) Glucose Level 86 MG/DL (74-106) Calcium Level 10.0 MG/DL (8.5-10.1) Phosphorus Level 3.5 MG/DL (2.5-4.9) Magnesium Level 1.9 MG/DL (1.8-2.4) Total Bilirubin 0.5 MG/DL (0.2-1.0) Aspartate Amino Transf (AST/SGOT) 31 U/L (15-37) Alanine Aminotransferase (ALT/SGPT) 31 U/L (12-78) Alkaline Phosphatase 164 U/L (46-116) H C-Reactive Protein, Quantitative 26.5 mg/dL (0.00-0.90) H Pro-B-Type Natriuretic Peptide 1126 pg/mL (0-125) H Total Protein 6.8 G/DL (6.4-8.2) Albumin 1.9 G/DL (3.4-5.0) L Globulin 4.9 g/dL Albumin/Globulin Ratio 0.4 (1.0-2.7) L Plan Problems: (1) Decubitus skin ulcer Assessment & Plan: Pt presented on admission with Contractures, Multiple Pressure Injuries .Pt is receiving Oxygen via NC. Both ears assessed and no evidence of Skin Breakdown noted. Full Thickness stage 4Pressure Injury L Buttocks (L)1.5cm x (W)1.4cm x (D) 0.2cm. Base of wound is 90% moist,sonia;10% slough. Non-Blanchable erythema along borders and periwound. DTPI Sacrococcygeal area (L)1.5cm x (W)0.8cm. Base of wound is maroon and indurated with surrounding non-blanchable erythema. DTPI L Trochanter(L)1.5cm x (W)0.8cm. Base of Pressure Injury is maroon and indurated.Surrounding Non-Blanchable erythema with delineated margins(L)8.5cm x (W)9cm. Unstageable Pressure Injury Plantar R Heel (L)2.5cm x (W)1.4cm. Stable dry eschar noted. Periwound is blanchable. Non-Blanchable erythema with fluctuance medial R Malleolus (L)4.5cm x (W)3cm. DTPI R Hallux (L)3cm x (W)2.4cm. Base of Pressure Injury is maroon and fluctuant. DTPI L lateral Malleolus(L)3cm x (W)3.5cm. Base of Pressure Injury is maroon and fluctuant. Tx.Plan: Cleanse wound L Buttocks with Saline. Apply TheraHoney. Apply Moisture Barrier Periwound. Cover with Optifoam drsg. Change Daily and prn. Apply Triad Paste to Sacrum. Cover with Optifoam drsg. Change every 3 days and prn. Apply Cavilon Skin Barrier to R and L trochanteric. Cover each site with Optifoam drsgs Change every 7 days and PRN. Apply Cavilon Skin BArrier to L Heel,Malleoli,Hallux. Cover each site with Optifoam drsgs. Change every 7 days and prn. Apply Cavilon Skin BArrier to R Heel , Malleoli ,Hallux. Cover each site with Optifoam drsgs. Change every 7 days and prn. Reposition at least every 2hours or as tolerated. Off-load heels with Pillow. APM/MARIA Mattress Overlay. (2) HCAP (healthcare-associated pneumonia) (3) Sepsis Assessment & Plan: lactic acidosis, elevated lft's abnormal labs renal insufficiency hypoxia -renal input appreciated -O2 supplement cxr noted cont abx steroids trend labs fluids thank you DAILY ESTIMATED NEEDS: Needs based on Wounds, 60kg 30-35kcal/kg kcals/kg 3967-7047 total kcals 1.5-2.0 g protein/kg 90-120 g total protein 25-30 mL/kg 0042-5918 total fluid mLs NUTRITION DIAGNOSIS: Increased kcal/prot needs R/T wound healing as evidenced by pt admitted w/ multiple wounds including stage 4 lt buttock wound and DTPI wounds @ sacrococcyx, L trochanter, R hallux, L lateral malleolus. CURRENT TF:NPO ENTERAL NUTRITION RECOMMENDATIONS: Osmolite 1.5 @ 55ml/hr x 24 hrs + Prosource 1pkt QD to provide 1320ml, 1980kcal, 83g +11g prot, 1006ml free water * As medically appropriate, initiate Osmolite 1.5 @ 15ml/hr x 6hrs * Advance 10ml q 4-6 hrs as tolerated to goal * Add Prosource 1pkt QD for additional 11g prot * HOB over 30 degrees/ water flush per MD ADDITIONAL RECOMMENDATIONS: * Daily calibrated bedscale wt: CHF dx, on lasix * Wound healing: Add Vit C 500mg BID, ZnSO4 220mg QD x 10 days TF @ goal will provide 100 % RDI Add El BID via PEG * Monitor lytes, replete as needed (4) UTI (urinary tract infection) Saleem Juan Jul 13, 2020 12:17
--- NOTE | 2020-07-13 14:43 | Nephrology Progress Note ---
Assessment/Plan Problem List: (1) LIA (acute kidney injury) (2) Dehydration (3) Sepsis (4) Anemia Assessment Acute renal failure Dehydration, hypercalcemia Hyperkalemia Anemia, low MCV Sepsis, UTI, healthcare associated pneumonia Plan July 13: Labs reviewed. Hemoglobin lower. Renal parameters stable serum sodium 134. Continue to monitor electrolytes and hemoglobin and hematocrit. Continue per consultants. July 12: Labs reviewed. Hemoglobin 10.7. Electrolytes and renal parameters within normal limits. Continue as is. IV fluid and IV Lasix discontinued. Albumin bolus given. As needed midodrine given. July 11: Labs reviewed. Hemoglobin higher after transfusion. Electrolytes and renal parameters within normal limits. Continue per current treatment plan. Blood pressure stable July 10: Creatinine of 1.4 down to 1.1. Electrolytes noted and abnormalities addressed. Patient on 50 cc an hour IV fluid. Remains NPO. Significant drop in hemoglobin. Transfusion ordered by consultants. Continue to monitor renal parameters and electrolytes. 2D echo results noted. Ejection fraction 65%. Albumin bolus given. Previously: Slow hydrate Monitor renal parameters and electrolytes Anemia work-up Antibiotics Avoid nephrotoxic's Monitor urine output Per orders Subjective ROS Limited/Unobtainable: No Constitutional: Reports: malaise, weakness Objective Objective Last 24 Hour Vital Signs Date Time Temp Pulse Resp B/P (MAP) Pulse Ox O2 Delivery O2 Flow Rate FiO2 07/13/20 12:00 97.9 86 20 98/63 (75) 95 07/13/20 09:00 Room Air 07/13/20 08:07 92 118/76 07/13/20 08:00 89 07/13/20 07:50 98.1 92 20 118/76 (90) 96 07/13/20 05:00 99.8 07/13/20 04:00 100.0 95 20 94/60 (71) 99 07/13/20 03:49 96 07/13/20 00:05 106 07/13/20 00:00 97.6 94 16 115/67 (83) 99 07/12/20 21:54 97 113/65 07/12/20 21:00 Room Air 07/12/20 20:00 97 07/12/20 20:00 99.5 97 16 113/65 (81) 100 07/12/20 16:00 98.8 89 18 103/62 (76) 100 07/12/20 16:00 87 Intake and Output 07/12/20 07/13/20 19:00 07:00 Intake Total 1550 ml 440 ml Output Total 1150 ml 700 ml Balance 400 ml -260 ml Intake Free Water 80 ml IV Total 950 ml Tube Feeding 520 ml 440 ml Output Urine Total 1150 ml 700 ml # Bowel Movements 2 2 Current Medications Medications (Trade) Dose Ordered Sig/Giovanny Route PRN Reason Start Time Stop Time Status Last Admin Dose Admin Acetaminophen (Tylenol) 650 mg Q4H PRN GT Mild Pain (Pain Scale 1-3) 07/09/20 10:15 08/08/20 10:14 Acetaminophen (Tylenol) 650 mg Q6H PRN GT Temp >100.5 07/09/20 01:30 08/08/20 01:29 07/12/20 12:05 Famotidine (Pepcid) 20 mg BID GT 07/12/20 18:00 10/10/20 17:59 07/13/20 08:07 Levofloxacin 100 ml @ 100 mls/hr Q24H IVPB 07/09/20 12:00 07/16/20 11:59 07/13/20 12:55 Metoprolol Tartrate (Lopressor) 12.5 mg Q12HR GT 07/10/20 21:00 10/08/20 20:59 07/13/20 08:07 Midodrine (Pro-Amatine) 10 mg Q8HR NG 07/12/20 14:30 10/10/20 14:29 07/13/20 13:14 Laboratory Tests 07/13/20 06:30: White Blood Count 9.6, Red Blood Count 3.49L, Hemoglobin 8.7L, Hematocrit 27.6L, Mean Corpuscular Volume 79L, Mean Corpuscular Hemoglobin 24.9L, Mean Corpuscular Hemoglobin Concent 31.4L, Red Cell Distribution Width 16.9H, Platelet Count 421, Mean Platelet Volume 6.7, Neutrophils (%) (Auto) 63.7, Lymphocytes (%) (Auto) 26.4, Monocytes (%) (Auto) 7.5, Eosinophils (%) (Auto) 1.8, Basophils (%) (Auto) 0.7, Sodium Level 134L, Potassium Level 3.6, Chloride Level 103, Carbon Dioxide Level 23, Anion Gap 8, Blood Urea Nitrogen 20H, Creatinine 0.9, Estimat Glomerular Filtration Rate > 60, Glucose Level 86, Calcium Level 10.0, Phosphorus Level 3.5, Magnesium Level 1.9, Total Bilirubin 0.5, Aspartate Amino Transf (AST/SGOT) 31, Alanine Aminotransferase (ALT/SGPT) 31, Alkaline Phosphatase 164H, C-Reactive Protein, Quantitative 26.5H, Pro-B-Type Natriuretic Peptide 1126H, Total Protein 6.8, Albumin 1.9L, Globulin 4.9, Albumin/Globulin Ratio 0.4L Height (Feet): 5 Height (Inches): 6.00 Weight (Pounds): 150 General Appearance: no apparent distress, lethargic Cardiovascular: tachycardia Respiratory/Chest: decreased breath sounds Abdomen: distended Kyaw Leal MD Jul 13, 2020 14:43
[2020-07-13 16:00] VITALS: BP 113/70
--- NOTE | 2020-07-13 18:00 | NUR ---
NURSE NOTES: IV line found taken out, patient with blood on his hand. IV reinserted on left wrist g22. Addendum: 07/13/20 at 1911 by Saranya Medina RN NURSE NOTES: IV was reinserted to right hand g22
--- NOTE | 2020-07-13 19:11 | NUR ---
NURSE HAND-OFF REPORT: Important Events on Shift:IV out and reinserted to right hand g22 Patient Status: confused Diet: Jevity 1.2 x 40cc/hr Pending Orders: Pending Results/Labs: Pending MD notification: Latest Vital Signs: Temperature 97.9 , Pulse 84 , B/P 113 /70 , Respiratory Rate 20 , O2 SAT 99 , Nasal Cannula, O2 Flow Rate 1.0 . Vital Sign Comment: EKG Rhythm: Sinus Rhythm Rhythm change?: N MD Notified?: N - MD Response: Latest Randolph Fall Score: 70 Fall Risk: High Risk Safety Measures: Call light Within Reach, Bed Alarm Zone 2, Side Rails Side Rails x3, Bed position Low and Locked. Fall Precautions: Yellow Socks Yellow Gown Door Sign Patient Fall Education Report given to Annie MCCORMICK.
--- NOTE | 2020-07-13 19:20 | NUR ---
NURSE NOTES: Patient received from CORRINE RN. Patient is A/O x 1, and is confused. Patient is on room air with no signs of acute respiratory distress noted, satting at 98%. Patient has a GT, patent and flushed, no residual noted. Jevity 1.2 is running at 40 ml/hr. Patient has a 16 macedonian lea, patent and well draining to gravity. Patient has a 22 gauge IV on his right hand, s/l patent and flushed, no bleeding or erythema noted at this time. IV is wrapped in Kalix as patient removed IV on day shift. Bed is in the lowest position, side rails up x3. call light within reach. Will continue to monitor.
[2020-07-13 20:00] VITALS: BP 133/72
[2020-07-13] MEDS ORDERED: D5 1/2NS 1000ml IV ONE (20:22)
--- NOTE | 2020-07-13 20:59 | History and Physical Report ---
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 He was transferred from the facility to this hospital and subsequently admitted. The patient is unable to add specific information about the reason for his admission. Per ER records, he was sent in with fever and abnormal vitals. The patient is minimally verbal and he was hypoxic on room air. He was admitted to the hospital for subsequent management and care. I have reviewed his past medical records and know that he was tested negative for COVID-19 as of July 01, 2020. Per nursing records, he was supposed to be transferred to [facility] due to fever by Dr. Burroughs. Paramedics, however, sent him to [facility]. The patient was admitted recently to [facility] in late May 2020 with the diagnosis of shock. He has a history of dementia and malnutrition. The patient has been a snf resident for a long time and has had previous Enterobacter UTI and candidemia as well as a history of Alzheimer's. He has a history of duodenal perforation, PDA pseudoaneurysm rupture, status post stent, complicated by hemoperitoneum, hemorrhagic shock, and pancreatitis. The patient was then sent to [facility], where he was convalesced and improved when discharged to nursing facility. PAST MEDICAL HISTORY: Notable for degenerative arthritis, chronic pain, hyperlipidemia, dementia, history of SBO, previous history of embolization of PDA, history of hemoperitoneum with perforated duodenal ulcer, history of Enterobacter UTI and bacteremia, history of candidemia. He has a chronic G-tube in place. ALLERGIES: Cefprozil. FAMILY HISTORY: Noncontributory. SOCIAL HISTORY: He is , has been a snf resident since April of last year. MEDICATIONS: Most recent medications include Flonase, Zofran, Protonix, and Zocor. His current list of medications includes ferrous sulfate, subcu heparin, lactulose p.r.n., and Artificial Tears. He has also been on enteral feedings. REVIEW OF SYSTEMS: Not reliable. PHYSICAL EXAMINATION: GENERAL: An elderly male. He is awake and verbal, but only minimally speaking in simple words. VITAL SIGNS: Blood pressure 95/50, heart rate 100, O2 sat 97% on 3 L oxygen. HEENT: Unremarkable with dry oral mucosa. CHEST: Clear breath sounds. ABDOMEN: Soft. G-tube is in place. EXTREMITIES: There is no edema. Polo catheter is in place. He appears to have contractures of upper and lower extremities. CT of the chest was obtained on 07/08/2020, yesterday, which shows consolidation in the left upper lobe. EKG, sinus tachycardia. LABORATORY DATA: Lab testing shows hemoglobin is 9.7, otherwise normal CBC and BMP. Potassium 5.4, creatinine 1.4. 2.8. Calcium 11. Coags are notable for D-dimer of 8.22. Urinalysis shows [id number]-count wbc's. IMPRESSION: 1. Urinary tract infection. 2. History of hypoxia, now resolved. 3. History of hypotension, now resolved. 4. Tachycardia. 5. Cognitive impairment. 6. Complicated past history of PDA pseudoaneurysm, status post embolization. 7. History of previous duodenal ulcer, status post perforation. DISCUSSION: Admit to the hospital. Start broad-spectrum antibiotics. IV fluid hydration. Continue G-tube feedings. We will follow carefully. Discharge back to facility once stable. Xander Alvarez M.D. DR: YAMIL JOB#: [id number] CC:
--- NOTE | 2020-07-13 21:14 | Consultation ---
DATE OF CONSULTATION: 07/11/2020 INFECTIOUS DISEASES CONSULTATION REFERRING PHYSICIAN: Dr. Alvarez. REASON FOR CONSULTATION: Urinary tract infection. HISTORY OF PRESENTING ILLNESS: This is a 69-year-old gentleman with history of dementia, psychiatric illness, renal failure, who comes in with fever. He was found to have a urinary tract infection and an Infectious Diseases consultation has been obtained for antibiotics. PAST MEDICAL HISTORY: 1. History of dementia. 2. Psychiatric illness. 3. Renal failure. SOCIAL HISTORY: Unknown. FAMILY HISTORY: Unknown. REVIEW OF SYSTEMS: Unable to obtain currently. MEDICATIONS: As an inpatient, he is on Lasix, metoprolol, Protonix, Levaquin, Tylenol. ALLERGIES: Cefprozil. PHYSICAL EXAMINATION: VITAL SIGNS: Temperature of 99.5, T-max of 100.2, pulse of 100, respiratory rate 19, blood pressure 113/64, O2 saturation of 100%. HEENT: Pupils are equally reactive to light and accommodation. Mouth appears clean without thrush. NECK: Supple. No adenopathy. No JVD. CARDIOVASCULAR: Regular rate and rhythm. No murmurs. LUNGS: Clear to auscultation bilaterally. No crackles. No wheezes. ABDOMEN: Soft, nontender. No organomegaly. EXTREMITIES: No cyanosis, no clubbing, no edema. LABS: White count 8.3, hemoglobin 9.2, hematocrit 29.1, MCV 80, platelet count of 434, neutrophils of 64%. Sodium 136, potassium 4.5, chloride 106, bicarb 21, BUN 21, creatinine 1, glucose 137, calcium 9.8. Total bilirubin 0.3. AST 36, ALT 34, alkaline phosphatase 187, total protein 6.6, albumin 1.7. UA is showing too numerous to count white cells. COVID-19 test is negative on July 09, 2020. Rectal swab was negative for VRE. Nasal swab was positive for MRSA. Urine culture is growing E. coli, susceptible to ceftriaxone, Levaquin, meropenem, piperacillin and tazobactam. On 07/08/2020, blood cultures are negative. Chest x-ray showed no acute process. CT chest angiogram showed focal patchy consolidation, possible atelectasis. No pulmonary embolism. ASSESSMENT: This is a 69-year-old gentleman with history of dementia, psychiatric illness, renal failure, who comes in and is found to have. 1. Urinary tract infection with E. coli. 2. COVID-19 negative. 3. Dementia. 4. Psychiatric illness. PLAN: 1. Continue Levaquin for 3 more days. 2. We will follow up cultures. 3. We will follow up the patient clinically. I would like to thank Dr. Alvarez for this consultation. Christian Noel M.D. DR: JUSTINA JOB#: [id number] CC: Xander Alvarez M.D.; Fax#: [phone]
--- NOTE | 2020-07-13 22:01 | NUR ---
NURSE NOTES: Patient BP was 108/73 Midodrine given as ordered. Patient has an axiliary temp of 101.3 Tylenol was given via G-tub no residual at this time. will continue to monitor patient,
[2020-07-13] MEDS: Acetaminophen 650mg/20.3ml GT PRN (23:00)
[2020-07-14] VITALS: BP 112/71
[2020-07-14 04:00] VITALS: BP 113/67
[2020-07-14] MEDS: Midodrine 10mg tab NG SCH ×4 (06:00→21:54)
--- NOTE | 2020-07-14 06:45 | NUR ---
NURSE HAND-OFF REPORT: Important Events on Shift: 6:00 am Midodrine held patents BP 133/73. Patient Status: No acute distress Diet: Jevity 1.2 at 40cc/hr Pending Orders: Pending Results/Labs: Pending MD notification: Latest Vital Signs: Temperature 98.1 , Pulse 82 , B/P 113 /67 , Respiratory Rate 20 , O2 SAT 97 , Nasal Cannula, O2 Flow Rate 1.0 . Vital Sign Comment: EKG Rhythm: Sinus Rhythm Rhythm change?: N MD Notified?: N - MD Response: Latest Randolph Fall Score: 70 Fall Risk: High Risk Safety Measures: Call light Within Reach, Bed Alarm Zone 2, Side Rails Side Rails x3, Bed position Low and Locked. Fall Precautions: Yellow Socks Yellow Gown Door Sign Patient Fall Education Report to be given. Addendum: 07/14/20 at 0722 by Annie Preciado RN report to Kaila MCCORMICK
--- NOTE | 2020-07-14 07:28 | NUR ---
NURSE NOTES: Received report from ANNY Valencia. Pt is resting in bed, confused. Pt is stable on RA, unlabored and even respirations. Pt gtube noted running feeding at 40cc. Pt skin reddness noted on B Heels, R foot, L hip, and B buttucks. Pt iv on L wrist 22g SL, asymptomatic and intact wrapped in kerlex. Pt bed low and locked, call light in reach and bed alarm on. pt verbalized understanding to call for help.
[2020-07-14 08:00] VITALS: BP 120/75
[2020-07-14] MEDS: Metoprolol Tartrate 12.5mg TAB GT SCH ×2 (08:46→21:52)
[2020-07-14 08:49] LABS: BASOPHILS % (AUTO) 0.7 % (0.0-2.0); EOSINOPHILS % (AUTO) 1.7 % (0.0-3.0); HEMOGLOBIN 9.6 G/DL (14.2-18.0); LYMPHOCYTES % (AUTO) 23.4 % (20.0-45.0); MEAN CORPUSCULAR VOLUME 80 FL (80-99); MONOCYTES % (AUTO) 4.6 % (1.0-10.0); NEUTROPHILS % (AUTO) 69.6 % (45.0-75.0); PLATELET COUNT 572 K/UL (150-450); RED BLOOD COUNT 3.87 M/UL (4.70-6.10); RED CELL DISTRIBUTION WIDTH 16.7 % (11.6-14.8); WHITE BLOOD COUNT 10.4 K/UL (4.8-10.8)
[2020-07-14 09:27] LABS: ALANINE AMINOTRANSFERASE 32 U/L (12-78); ALBUMIN 1.9 G/DL (3.4-5.0); ALBUMIN/GLOBULIN RATIO 0.4 (1.0-2.7); ALKALINE PHOSPHATASE 171 U/L (46-116); ANION GAP 7 mmol/L (5-15); ASPARTATE AMINO TRANSFERASE 35 U/L (15-37); BILIRUBIN,TOTAL 0.4 MG/DL (0.2-1.0); BLOOD UREA NITROGEN 23 mg/dL (7-18); CALCIUM 10.5 MG/DL (8.5-10.1); CARBON DIOXIDE 25 MMOL/L (21-32); CHLORIDE 104 MMOL/L (98-107); CREATININE 0.9 MG/DL (0.55-1.30); SODIUM 136 MMOL/L (136-145)
--- NOTE | 2020-07-14 09:42 | Cardiology Progress Note ---
Assessment/Plan Status Narrative Transfuse as necessary to maintain Hgb 8 and above. SR, rate and SBP in normal territory. Assessment/Plan 1. PNA and developing sepsis 2. CHF with elevated BNP diuresis as tolerated with IV Lasix Bb for rate control 3. Dehydration and electrolyte imbalance 4. Sinus tachycardia 5. Anemia - acute on chronic Hgb 6.5 s/p transfusion 6. UTI 7. Aphasia 8. Dementia and h/o psych disorder Subjective ROS Limited/Unobtainable: Yes Subjective At baseline, no fever Objective Last 24 Hour Vital Signs Date Time Temp Pulse Resp B/P (MAP) Pulse Ox O2 Delivery O2 Flow Rate FiO2 07/14/20 08:46 95 114/66 07/14/20 04:00 98.1 82 20 113/67 (82) 97 07/14/20 03:53 83 07/14/20 00:00 99.5 94 18 112/71 (85) 98 07/13/20 23:38 96 07/13/20 23:30 99.5 07/13/20 21:00 Room Air 07/13/20 20:11 103 133/73 07/13/20 20:00 99.3 85 18 133/72 (92) 98 07/13/20 19:53 101 07/13/20 16:00 84 07/13/20 16:00 97.9 85 20 113/70 (84) 99 07/13/20 12:00 97.9 86 20 98/63 (75) 95 07/13/20 12:00 82 General Appearance: no apparent distress EENT: normal ENT inspection Neck: no JVD Rhythm: NSR Cardiovascular: normal rate, regular rhythm Respiratory/Chest: no respiratory distress Abdomen: soft Extremities: trace edema Neurologic: disoriented Intake and Output 07/13/20 07/14/20 19:00 07:00 Intake Total 40 ml 400 ml Output Total 800 ml 900 ml Balance -760 ml -500 ml Tube Feeding 40 ml 400 ml Output Urine Total 800 ml 900 ml # Bowel Movements 2 Laboratory Tests Test 07/14/20 08:30 White Blood Count 10.4 K/UL (4.8-10.8) Red Blood Count 3.87 M/UL (4.70-6.10) L Hemoglobin 9.6 G/DL (14.2-18.0) L Hematocrit 31.0 % (42.0-52.0) L Mean Corpuscular Volume 80 FL (80-99) Mean Corpuscular Hemoglobin 24.9 PG (27.0-31.0) L Mean Corpuscular Hemoglobin Concent 31.1 G/DL (32.0-36.0) L Red Cell Distribution Width 16.7 % (11.6-14.8) H Platelet Count 572 K/UL (150-450) H Mean Platelet Volume 6.8 FL (6.5-10.1) Neutrophils (%) (Auto) 69.6 % (45.0-75.0) Lymphocytes (%) (Auto) 23.4 % (20.0-45.0) Monocytes (%) (Auto) 4.6 % (1.0-10.0) Eosinophils (%) (Auto) 1.7 % (0.0-3.0) Basophils (%) (Auto) 0.7 % (0.0-2.0) Sodium Level 136 MMOL/L (136-145) Potassium Level 4.0 MMOL/L (3.5-5.1) Chloride Level 104 MMOL/L (98-107) Carbon Dioxide Level 25 MMOL/L (21-32) Anion Gap 7 mmol/L (5-15) Blood Urea Nitrogen 23 mg/dL (7-18) H Creatinine 0.9 MG/DL (0.55-1.30) Estimat Glomerular Filtration Rate > 60 mL/min (>60) Glucose Level 108 MG/DL (74-106) H Uric Acid 4.2 MG/DL (2.6-7.2) Calcium Level 10.5 MG/DL (8.5-10.1) H Phosphorus Level 4.0 MG/DL (2.5-4.9) Magnesium Level 2.2 MG/DL (1.8-2.4) Total Bilirubin 0.4 MG/DL (0.2-1.0) Aspartate Amino Transf (AST/SGOT) 35 U/L (15-37) Alanine Aminotransferase (ALT/SGPT) 32 U/L (12-78) Alkaline Phosphatase 171 U/L (46-116) H C-Reactive Protein, Quantitative 36.2 mg/dL (0.00-0.90) H Pro-B-Type Natriuretic Peptide 991 pg/mL (0-125) H Total Protein 7.1 G/DL (6.4-8.2) Albumin 1.9 G/DL (3.4-5.0) L Globulin 5.2 g/dL Albumin/Globulin Ratio 0.4 (1.0-2.7) L Vanessa Edouard PA-C Jul 14, 2020 09:42
--- NOTE | 2020-07-14 10:34 | Pulmonology Progress Note ---
Subjective ROS Limited/Unobtainable: No Interval Events: Hgb better Constitutional: Reports: fever, other - T=99.5 HEENT: Repors: no symptoms Respiratory: Reports: no symptoms Cardiovascular: Reports: no symptoms Gastrointestinal/Abdominal: Reports: no symptoms Allergies: Coded Allergies: CEFPROZIL (Verified Allergy, Unknown, 07/08/20) Objective Last 24 Hour Vital Signs Date Time Temp Pulse Resp B/P (MAP) Pulse Ox O2 Delivery O2 Flow Rate FiO2 07/14/20 09:00 Room Air 07/14/20 08:46 95 114/66 07/14/20 08:00 93 07/14/20 08:00 98.6 82 20 120/75 (90) 94 07/14/20 04:00 98.1 82 20 113/67 (82) 97 07/14/20 03:53 83 07/14/20 00:00 99.5 94 18 112/71 (85) 98 07/13/20 23:38 96 07/13/20 23:30 99.5 07/13/20 21:00 Room Air 07/13/20 20:11 103 133/73 07/13/20 20:00 99.3 85 18 133/72 (92) 98 07/13/20 19:53 101 07/13/20 16:00 84 07/13/20 16:00 97.9 85 20 113/70 (84) 99 07/13/20 12:00 97.9 86 20 98/63 (75) 95 07/13/20 12:00 82 Intake and Output 07/13/20 07/14/20 19:00 07:00 Intake Total 40 ml 400 ml Output Total 800 ml 900 ml Balance -760 ml -500 ml Tube Feeding 40 ml 400 ml Output Urine Total 800 ml 900 ml # Bowel Movements 2 General Appearance: no acute distress HEENT: atraumatic Respiratory: lungs clear Cardiovascular: normal rate Abdomen: soft, non tender Laboratory Tests 07/14/20 08:30: White Blood Count 10.4, Red Blood Count 3.87L, Hemoglobin 9.6L, Hematocrit 31.0L , Mean Corpuscular Volume 80, Mean Corpuscular Hemoglobin 24.9L, Mean Corpuscular Hemoglobin Concent 31.1L, Red Cell Distribution Width 16.7H, Platelet Count 572H, Mean Platelet Volume 6.8, Neutrophils (%) (Auto) 69.6, Lymphocytes (%) (Auto) 23.4, Monocytes (%) (Auto) 4.6, Eosinophils (%) (Auto) 1.7, Basophils (%) (Auto) 0.7, Sodium Level 136, Potassium Level 4.0, Chloride Level 104, Carbon Dioxide Level 25, Anion Gap 7, Blood Urea Nitrogen 23H, Creatinine 0.9, Estimat Glomerular Filtration Rate > 60, Glucose Level 108H, Uric Acid 4.2, Calcium Level 10.5H, Phosphorus Level 4.0, Magnesium Level 2.2, Total Bilirubin 0.4, Aspartate Amino Transf (AST/SGOT) 35, Alanine Aminotransferase (ALT/SGPT) 32, Alkaline Phosphatase 171H, C-Reactive Protein, Quantitative 36.2H, Pro-B-Type Natriuretic Peptide 991H, Total Protein 7.1, Albumin 1.9L, Globulin 5.2, Albumin/Globulin Ratio 0.4L Current Medications Medications (Trade) Dose Ordered Sig/Giovanny Route PRN Reason Start Time Stop Time Status Last Admin Dose Admin Acetaminophen (Tylenol) 650 mg Q4H PRN GT Mild Pain (Pain Scale 1-3) 07/09/20 10:15 08/08/20 10:14 Acetaminophen (Tylenol) 650 mg Q6H PRN GT Temp >100.5 07/09/20 01:30 08/08/20 01:29 07/13/20 23:00 Famotidine (Pepcid) 20 mg BID GT 07/12/20 18:00 10/10/20 17:59 07/14/20 08:46 Levofloxacin 100 ml @ 100 mls/hr Q24H IVPB 07/09/20 12:00 07/16/20 11:59 07/13/20 12:55 Metoprolol Tartrate (Lopressor) 12.5 mg Q12HR GT 07/10/20 21:00 10/08/20 20:59 07/14/20 08:46 Midodrine (Pro-Amatine) 10 mg Q8HR NG 07/12/20 14:30 10/10/20 14:29 07/13/20 23:00 Assessment/Plan Assessment/Plan 1. Anemia - Hgb better, s/p 2 units of PRBC - GI consulted - now off heparin - Stool OB negative 2. Hypoxia on arrival - now on RA saturating at 100% - continue monitor for hypoxia and provide supplemental oxygen as needed 3. COVID-19 negative 4. Sepsis, likely secondary to UTI, HCAP - now off Levofloxacin, Zosyn - UCx grew E. Coli 5. ILA, electrolyte abnormality - nephro following 6. CHF exacerbation - seen by cardio - on IV Lasix 20 mg QD - EF 65% - CXR 07/11 no acute process 7. MRSA nasal - contact precaution 8. DVT ppx - Venous duplex US neg for DVT - on SCD Plan for dc back to SNF if labs stable The care for this patient was discussed with my supervising physician Time spent for this case was approximately 31 minutes Bandar Hansen Jul 14, 2020 10:34
--- NOTE | 2020-07-14 11:18 | Infectious Diseases Prog Note ---
Assessment/Plan Assessment/Plan antibiotics : levoquin A 1. e.coli UTI s/p rx 2. dementia 3. renal failure resolved 4. MRSA nasal colonization P 1. d/c levoquin 2. observe off antibiotics Subjective ROS Limited/Unobtainable: Yes Allergies: Coded Allergies: CEFPROZIL (Verified Allergy, Unknown, 07/08/20) Objective Last 24 Hour Vital Signs Date Time Temp Pulse Resp B/P (MAP) Pulse Ox O2 Delivery O2 Flow Rate FiO2 07/14/20 09:00 Room Air 07/14/20 08:46 95 114/66 07/14/20 08:00 93 07/14/20 08:00 98.6 82 20 120/75 (90) 94 07/14/20 04:00 98.1 82 20 113/67 (82) 97 07/14/20 03:53 83 07/14/20 00:00 99.5 94 18 112/71 (85) 98 07/13/20 23:38 96 07/13/20 23:30 99.5 07/13/20 21:00 Room Air 07/13/20 20:11 103 133/73 07/13/20 20:00 99.3 85 18 133/72 (92) 98 07/13/20 19:53 101 07/13/20 16:00 84 07/13/20 16:00 97.9 85 20 113/70 (84) 99 07/13/20 12:00 97.9 86 20 98/63 (75) 95 07/13/20 12:00 82 Height (Feet): 5 Height (Inches): 6.00 Weight (Pounds): 150 Respiratory/Chest: lungs clear Cardiovascular: normal rate, regular rhythm, no gallop/murmur Abdomen: soft, non tender, other - GT Extremities: no edema Laboratory Tests Test 07/14/20 08:30 White Blood Count 10.4 K/UL (4.8-10.8) Red Blood Count 3.87 M/UL (4.70-6.10) L Hemoglobin 9.6 G/DL (14.2-18.0) L Hematocrit 31.0 % (42.0-52.0) L Mean Corpuscular Volume 80 FL (80-99) Mean Corpuscular Hemoglobin 24.9 PG (27.0-31.0) L Mean Corpuscular Hemoglobin Concent 31.1 G/DL (32.0-36.0) L Red Cell Distribution Width 16.7 % (11.6-14.8) H Platelet Count 572 K/UL (150-450) H Mean Platelet Volume 6.8 FL (6.5-10.1) Neutrophils (%) (Auto) 69.6 % (45.0-75.0) Lymphocytes (%) (Auto) 23.4 % (20.0-45.0) Monocytes (%) (Auto) 4.6 % (1.0-10.0) Eosinophils (%) (Auto) 1.7 % (0.0-3.0) Basophils (%) (Auto) 0.7 % (0.0-2.0) Sodium Level 136 MMOL/L (136-145) Potassium Level 4.0 MMOL/L (3.5-5.1) Chloride Level 104 MMOL/L (98-107) Carbon Dioxide Level 25 MMOL/L (21-32) Anion Gap 7 mmol/L (5-15) Blood Urea Nitrogen 23 mg/dL (7-18) H Creatinine 0.9 MG/DL (0.55-1.30) Estimat Glomerular Filtration Rate > 60 mL/min (>60) Glucose Level 108 MG/DL (74-106) H Uric Acid 4.2 MG/DL (2.6-7.2) Calcium Level 10.5 MG/DL (8.5-10.1) H Phosphorus Level 4.0 MG/DL (2.5-4.9) Magnesium Level 2.2 MG/DL (1.8-2.4) Total Bilirubin 0.4 MG/DL (0.2-1.0) Aspartate Amino Transf (AST/SGOT) 35 U/L (15-37) Alanine Aminotransferase (ALT/SGPT) 32 U/L (12-78) Alkaline Phosphatase 171 U/L (46-116) H C-Reactive Protein, Quantitative 36.2 mg/dL (0.00-0.90) H Pro-B-Type Natriuretic Peptide 991 pg/mL (0-125) H Total Protein 7.1 G/DL (6.4-8.2) Albumin 1.9 G/DL (3.4-5.0) L Globulin 5.2 g/dL Albumin/Globulin Ratio 0.4 (1.0-2.7) L Current Medications Medications (Trade) Dose Ordered Sig/Giovanny Route PRN Reason Start Time Stop Time Status Last Admin Dose Admin Acetaminophen (Tylenol) 650 mg Q4H PRN GT Mild Pain (Pain Scale 1-3) 07/09/20 10:15 08/08/20 10:14 Acetaminophen (Tylenol) 650 mg Q6H PRN GT Temp >100.5 07/09/20 01:30 08/08/20 01:29 07/13/20 23:00 Famotidine (Pepcid) 20 mg BID GT 07/12/20 18:00 10/10/20 17:59 07/14/20 08:46 Levofloxacin 100 ml @ 100 mls/hr Q24H IVPB 07/09/20 12:00 07/16/20 11:59 07/13/20 12:55 Metoprolol Tartrate (Lopressor) 12.5 mg Q12HR GT 07/10/20 21:00 10/08/20 20:59 07/14/20 08:46 Midodrine (Pro-Amatine) 10 mg Q8HR NG 07/12/20 14:30 10/10/20 14:29 07/13/20 23:00 Christian Noel MD Jul 14, 2020 11:18
--- NOTE | 2020-07-14 11:55 | NUR ---
NURSE NOTES: Pt changed, small BM. Pt yells in pain when turned, unable to assist with ADLs.
[2020-07-14 11:57] VITALS: BP 115/71
--- NOTE | 2020-07-14 12:16 | NUR ---
ASE MANAGEMENT:REVIEW 07/14/20 SI: SEPSIS. PNA. UTI 98.2 102 22 115/71 100% ON RA BUN+23 IS: IV AREDIA X1 PEPCID GT BID MIDODRINE GT Q8HRS LOPRESSOR GT Q12 : TELEMETRY STATUS DCP: FROM [facility]
[2020-07-14] MEDS ORDERED: PRO-AMATINE10 MG NG (12:21)
[2020-07-14] MEDS ORDERED: LOPRESSOR25 M1 GT (12:21)
[2020-07-14] MEDS ORDERED: Pamidronate Disodium Inj 60 MG in Sodium Chloride 550 ML IVPB ONE (13:00)
--- NOTE | 2020-07-14 13:03 | NUR ---
AUDIO VIDEO REPAIRER NOTES INQUIRY FAXED TO [facility]. WILL FOLLOW UP WITH ACCEPTANCE.
--- NOTE | 2020-07-14 13:07 | Surgery Progress Note ---
Surgery Progress Note Subjective Additional Comments +bm no n/v labs okay comfortable Objective Last 24 Hour Vital Signs Date Time Temp Pulse Resp B/P (MAP) Pulse Ox O2 Delivery O2 Flow Rate FiO2 07/14/20 12:00 102 07/14/20 11:57 98.2 102 22 115/71 (86) 100 07/14/20 09:00 Room Air 07/14/20 08:46 95 114/66 07/14/20 08:00 93 07/14/20 08:00 98.6 82 20 120/75 (90) 94 07/14/20 04:00 98.1 82 20 113/67 (82) 97 07/14/20 03:53 83 07/14/20 00:00 99.5 94 18 112/71 (85) 98 07/13/20 23:38 96 07/13/20 23:30 99.5 07/13/20 21:00 Room Air 07/13/20 20:11 103 133/73 07/13/20 20:00 99.3 85 18 133/72 (92) 98 07/13/20 19:53 101 07/13/20 16:00 84 07/13/20 16:00 97.9 85 20 113/70 (84) 99 I&O Intake and Output 07/13/20 07/14/20 19:00 07:00 Intake Total 40 ml 400 ml Output Total 800 ml 900 ml Balance -760 ml -500 ml Tube Feeding 40 ml 400 ml Output Urine Total 800 ml 900 ml # Bowel Movements 2 Dressing: other Wound: other Cardiovascular: RSR Respiratory: decreased breath sounds Abdomen: soft, non-tender, present bowel sounds, non-distended Extremities: no tenderness, no cyanosis Laboratory Tests Test 07/14/20 08:30 White Blood Count 10.4 K/UL (4.8-10.8) Red Blood Count 3.87 M/UL (4.70-6.10) L Hemoglobin 9.6 G/DL (14.2-18.0) L Hematocrit 31.0 % (42.0-52.0) L Mean Corpuscular Volume 80 FL (80-99) Mean Corpuscular Hemoglobin 24.9 PG (27.0-31.0) L Mean Corpuscular Hemoglobin Concent 31.1 G/DL (32.0-36.0) L Red Cell Distribution Width 16.7 % (11.6-14.8) H Platelet Count 572 K/UL (150-450) H Mean Platelet Volume 6.8 FL (6.5-10.1) Neutrophils (%) (Auto) 69.6 % (45.0-75.0) Lymphocytes (%) (Auto) 23.4 % (20.0-45.0) Monocytes (%) (Auto) 4.6 % (1.0-10.0) Eosinophils (%) (Auto) 1.7 % (0.0-3.0) Basophils (%) (Auto) 0.7 % (0.0-2.0) Sodium Level 136 MMOL/L (136-145) Potassium Level 4.0 MMOL/L (3.5-5.1) Chloride Level 104 MMOL/L (98-107) Carbon Dioxide Level 25 MMOL/L (21-32) Anion Gap 7 mmol/L (5-15) Blood Urea Nitrogen 23 mg/dL (7-18) H Creatinine 0.9 MG/DL (0.55-1.30) Estimat Glomerular Filtration Rate > 60 mL/min (>60) Glucose Level 108 MG/DL (74-106) H Uric Acid 4.2 MG/DL (2.6-7.2) Calcium Level 10.5 MG/DL (8.5-10.1) H Phosphorus Level 4.0 MG/DL (2.5-4.9) Magnesium Level 2.2 MG/DL (1.8-2.4) Total Bilirubin 0.4 MG/DL (0.2-1.0) Aspartate Amino Transf (AST/SGOT) 35 U/L (15-37) Alanine Aminotransferase (ALT/SGPT) 32 U/L (12-78) Alkaline Phosphatase 171 U/L (46-116) H C-Reactive Protein, Quantitative 36.2 mg/dL (0.00-0.90) H Pro-B-Type Natriuretic Peptide 991 pg/mL (0-125) H Total Protein 7.1 G/DL (6.4-8.2) Albumin 1.9 G/DL (3.4-5.0) L Globulin 5.2 g/dL Albumin/Globulin Ratio 0.4 (1.0-2.7) L Plan Problems: (1) Decubitus skin ulcer Assessment & Plan: Pt presented on admission with Contractures, Multiple Press ure Injuries .Pt is receiving Oxygen via NC. Both ears assessed and no evidence of Skin Breakdown noted. Full Thickness stage 4Pressure Injury L Buttocks (L)1.5cm x (W)1.4cm x (D) 0.2cm. Base of wound is 90% moist,sonia;10% slough. Non-Blanchable erythema along borders and periwound. DTPI Sacrococcygeal area (L)1.5cm x (W)0.8cm. Base of wound is maroon and indurated with surrounding non-blanchable erythema. DTPI L Trochanter(L)1.5cm x (W)0.8cm. Base of Pressure Injury is maroon and indurated.Surrounding Non-Blanchable erythema with delineated margins(L)8.5cm x (W)9cm. Unstageable Pressure Injury Plantar R Heel (L)2.5cm x (W)1.4cm. Stable dry eschar noted. Periwound is blanchable. Non-Blanchable erythema with fluctuance medial R Malleolus (L)4.5cm x (W)3cm. DTPI R Hallux (L)3cm x (W)2.4cm. Base of Pressure Injury is maroon and fluctuant. DTPI L lateral Malleolus(L)3cm x (W)3.5cm. Base of Pressure Injury is maroon and fluctuant. Tx.Plan: Cleanse wound L Buttocks with Saline. Apply TheraHoney. Apply Moisture Barrier Periwound. Cover with Optifoam drsg. Change Daily and prn. Apply Triad Paste to Sacrum. Cover with Optifoam drsg. Change every 3 days and prn. Apply Cavilon Skin Barrier to R and L trochanteric. Cover each site with Optifoa m drsgs Change every 7 days and PRN. Apply Cavilon Skin BArrier to L Heel,Malleoli,Hallux. Cover each site with Opti foam drsgs. Change every 7 days and prn. Apply Cavilon Skin BArrier to R Heel , Malleoli ,Hallux. Cover each site with Optifoam drsgs. Change every 7 days and prn. Reposition at least every 2hours or as tolerated. Off-load heels with Pillow. APM/MARIA Mattress Overlay. (2) HCAP (healthcare-associated pneumonia) (3) Sepsis Assessment & Plan: lactic acidosis, elevated lft's abnormal labs renal insufficiency hypoxia -renal input appreciated -O2 supplement cxr noted cont abx steroids trend labs fluids thank you DAILY ESTIMATED NEEDS: Needs based on Wounds, 60kg 30-35kcal/kg kcals/kg 5887-2417 total kcals 1.5-2.0 g protein/kg 90-120 g total protein 25-30 mL/kg 2310-9192 total fluid mLs NUTRITION DIAGNOSIS: Increased kcal/prot needs R/T wound healing as evidenced by pt admitted w/ multiple wounds including stage 4 lt buttock wound and DTPI wounds @ sacrococcyx, L trochanter, R hallux, L lateral malleolus. CURRENT TF:NPO ENTERAL NUTRITION RECOMMENDATIONS: Osmolite 1.5 @ 55ml/hr x 24 hrs + Prosource 1pkt QD to provide 1320ml, 1980 kcal, 83g +11g prot, 1006ml free water * As medically appropriate, initiate Osmolite 1.5 @ 15ml/hr x 6hrs * Advance 10ml q 4-6 hrs as tolerated to goal * Add Prosource 1pkt QD for additional 11g prot * HOB over 30 degrees/ water flush per MD ADDITIONAL RECOMMENDATIONS: * Daily calibrated bedscale wt: CHF dx, on lasix * Wound healing: Add Vit C 500mg BID, ZnSO4 220mg QD x 10 days TF @ goal will provide 100 % RDI Add Le BID via PEG * Monitor lytes, replete as needed (4) UTI (urinary tract infection) Saleem Juan Jul 14, 2020 13:07
--- NOTE | 2020-07-14 13:50 | Consultation ---
Consult Note Consult Note Neurology Consultation Date of Consultation: 07/14/2020 Catherine MD: Dr. 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 He is a poor historian most of the information was obtained from his chart and the emr here. He presented to the hospital ED for fever and abnormal vitals. The patient is minimally verbal and he was hypoxic on room air. He was admitted to the hospital for subsequent management and care. I have reviewed his past medical records and know that he was tested negative for COVID-19 as of July 01, 2020. Per nursing records. According to revords he was [place] [facility] [place] 2020 with the diagnosis of shock. He has a history of dementia and malnutrition, he is cachectic. The [facility] has been a [facility] for a long time and has had previous Enterobacter UTI and candidemia as well as a history of Alzheimer's. We were consulted for encephalopathy PAST MEDICAL HISTORY: Degenerative arthritis, chronic pain, hyperlipidemia, dementia, history of SBO, previous history of embolization of PDA, history of hemoperitoneum with perforated duodenal ulcer, history of Enterobacter UTI and bacteremia, history of candidemia. He has a chronic G-tube in place. ALLERGIES: Cefprozil. FAMILY HISTORY: Noncontributory. SOCIAL HISTORY:has been a [facility] resident since April of last year. MEDICATIONS: Reviewed REVIEW OF SYSTEMS: unable to assess PHYSICAL EXAMINATION: General: pt is lying in bed no distress he is cachectic appearing Neuro: He is awake, is verbal is confused and disoriented has no insight to situation, Comprehension is not intact Cranial nerves II-XI tested. Tongue is midline PERRLA Hearing is intact. No involuntarty movements noted. Motor Exam: bilateral upper extremities 2/5, lower bilat extremities 2/5. He is weak Sensation not able intact. Gait not tested IMAGING: CT of the chest was obtained on 07/08/2020, yesterday, which shows consolidation in the left upper lobe. EKG, sinus tachycardia. LABORATORY DATA: Reviewed Assessment and Rec's: 1. Encephalopathy Metabolic --> we do not know patient's baseline however it is stated in his records that he has diagnosis of dementia and Alzheimers Disease this needs to be considered --> Consider Imaging of brain with CT vs MRI if needed --> He also has a UTI infection which could make it worse 2. Urinary tract infection. 3. Cognitive impairment. 4. Complicated past history of PDA pseudoaneurysm, status post embolization. 5. History of previous duodenal ulcer, status post perforation. --> wound care Thank you for allowing us to participate in patient's care plan of care was discussed with Dr. Song Stovall who agrees. Dawn Alcala [employer]TER [employer] TECHNICIAN Jul 14, 2020 13:50
--- NOTE | 2020-07-14 14:52 | NUR ---
INSURANCE CLINICALS/REVIEW FAXED TO [facility] FX [phone] FX [phone].
--- NOTE | 2020-07-14 15:47 | Nephrology Progress Note ---
Assessment/Plan Problem List: (1) ILA (acute kidney injury) (2) Dehydration (3) Sepsis (4) Anemia (5) Hypercalcemia Assessment Acute renal failure Dehydration, hypercalcemia Hyperkalemia Anemia, low MCV Sepsis, UTI, healthcare associated pneumonia Plan July 14: Labs reviewed. Serum calcium elevated, even more when corrected for low albumin. Pamidronate 60 mg IV given. Continue to monitor electrolytes, calcium, phosphorus, magnesium. Continue per consultants. July 13: Labs reviewed. Hemoglobin lower. Renal parameters stable serum sodium 134. Continue to monitor electrolytes and hemoglobin and hematocrit. Continue per consultants. July 12: Labs reviewed. Hemoglobin 10.7. Electrolytes and renal parameters within normal limits. Continue as is. IV fluid and IV Lasix discontinued. Albumin bolus given. As needed midodrine given. July 11: Labs reviewed. Hemoglobin higher after transfusion. Electrolytes and renal parameters within normal limits. Continue per current treatment plan. Blood pressure stable July 10: Creatinine of 1.4 down to 1.1. Electrolytes noted and abnormalities addressed. Patient on 50 cc an hour IV fluid. Remains NPO. Significant drop i n hemoglobin. Transfusion ordered by consultants. Continue to monitor renal parameters and electrolytes. 2D echo results noted. Ejection fraction 65%. Albumin bolus given. Previously: Slow hydrate Monitor renal parameters and electrolytes Anemia work-up Antibiotics Avoid nephrotoxic's Monitor urine output Per orders Subjective ROS Limited/Unobtainable: No Constitutional: Reports: malaise Objective Objective Last 24 Hour Vital Signs Date Time Temp Pulse Resp B/P (MAP) Pulse Ox O2 Delivery O2 Flow Rate FiO2 07/14/20 12:00 102 07/14/20 11:57 98.2 102 22 115/71 (86) 100 07/14/20 09:00 Room Air 07/14/20 08:46 95 114/66 07/14/20 08:00 93 07/14/20 08:00 98.6 82 20 120/75 (90) 94 07/14/20 04:00 98.1 82 20 113/67 (82) 97 07/14/20 03:53 83 07/14/20 00:00 99.5 94 18 112/71 (85) 98 07/13/20 23:38 96 07/13/20 23:30 99.5 07/13/20 21:00 Room Air 07/13/20 20:11 103 133/73 07/13/20 20:00 99.3 85 18 133/72 (92) 98 07/13/20 19:53 101 07/13/20 16:00 84 07/13/20 16:00 97.9 85 20 113/70 (84) 99 Intake and Output 07/13/20 07/14/20 19:00 07:00 Intake Total 40 ml 400 ml Output Total 800 ml 900 ml Balance -760 ml -500 ml Tube Feeding 40 ml 400 ml Output Urine Total 800 ml 900 ml # Bowel Movements 2 Current Medications Medications (Trade) Dose Ordered Sig/Giovanny Route PRN Reason Start Time Stop Time Status Last Admin Dose Admin Acetaminophen (Tylenol) 650 mg Q4H PRN GT Mild Pain (Pain Scale 1-3) 07/09/20 10:15 08/08/20 10:14 Acetaminophen (Tylenol) 650 mg Q6H PRN GT Temp >100.5 07/09/20 01:30 08/08/20 01:29 07/13/20 23:00 Famotidine (Pepcid) 20 mg BID GT 07/12/20 18:00 10/10/20 17:59 07/14/20 08:46 Metoprolol Tartrate (Lopressor) 12.5 mg Q12HR GT 07/10/20 21:00 10/08/20 20:59 07/14/20 08:46 Midodrine (Pro-Amatine) 10 mg Q8HR NG 07/12/20 14:30 10/10/20 14:29 07/13/20 23:00 Pamidronate Disodium 60 mg/ Sodium Chloride 550 ml @ 137.5 mls/ hr ONCE ONCE IVPB 07/14/20 13:00 07/14/20 16:59 07/14/20 13:53 Laboratory Tests 07/14/20 08:30: White Blood Count 10.4, Red Blood Count 3.87L, Hemoglobin 9.6L, Hematocrit 31.0L , Mean Corpuscular Volume 80, Mean Corpuscular Hemoglobin 24.9L, Mean Corpuscular Hemoglobin Concent 31.1L, Red Cell Distribution Width 16.7H, Platelet Count 572H, Mean Platelet Volume 6.8, Neutrophils (%) (Auto) 69.6, Lymphocytes (%) (Auto) 23.4, Monocytes (%) (Auto) 4.6, Eosinophils (%) (Auto) 1.7, Basophils (%) (Auto) 0.7, Sodium Level 136, Potassium Level 4.0, Chloride Level 104, Carbon Dioxide Level 25, Anion Gap 7, Blood Urea Nitrogen 23H, Creatinine 0.9, Estimat Glomerular Filtration Rate > 60, Glucose Level 108H, Uric Acid 4.2, Calcium Level 10.5H, Phosphorus Level 4.0, Magnesium Level 2.2, Total Bilirubin 0.4, Aspartate Amino Transf (AST/SGOT) 35, Alanine Aminotransferase (ALT/SGPT) 32, Alkaline Phosphatase 171H, C-Reactive Protein, Quantitative 36.2H, Pro-B-Type Natriuretic Peptide 991H, Total Protein 7.1, Albumin 1.9L, Globulin 5.2, Albumin/Globulin Ratio 0.4L Height (Feet): 5 Height (Inches): 6.00 Weight (Pounds): 150 General Appearance: no apparent distress, lethargic Cardiovascular: tachycardia Respiratory/Chest: decreased breath sounds Abdomen: distended Kyaw Leal MD Jul 14, 2020 15:47
[2020-07-14 15:53] VITALS: BP 121/67
--- NOTE | 2020-07-14 18:07 | NUR ---
NURSE HAND-OFF REPORT: Important Events on Shift: held midodrine, bp >110 SPB Patient Status: fc, stable Diet: jevity 1.2 cont at 40cc Pending Orders: Pending Results/Labs: Pending MD notification: Latest Vital Signs: Temperature 98.8 , Pulse 104 , B/P 121 /67 , Respiratory Rate 18 , O2 SAT 95 , Nasal Cannula, O2 Flow Rate 1.0 . Vital Sign Comment: EKG Rhythm: Sinus Tachycardia Rhythm change?: N MD Notified?: N - MD Response: Latest Randolph Fall Score: 70 Fall Risk: High Risk Safety Measures: Call light Within Reach, Bed Alarm Zone 2, Side Rails Side Rails x3, Bed position Low and Locked. Fall Precautions: Yellow Socks Yellow Gown Door Sign Patient Fall Education Report to be given, pt is stable. Addendum: 07/14/20 at 1921 by Kaila Rodríguez RN RN Pt is stable, report given to ANNY Baptiste.
[2020-07-14] MEDS: Acetaminophen 650mg/20.3ml GT PRN (19:42)
[2020-07-14 20:00] VITALS: BP 124/75
--- NOTE | 2020-07-14 20:01 | NUR ---
NURSE NOTES: Patient's temperature was 101.8, given PRN tylenol and ice packs. Notified Dr. Noel. Awaiting call back,
[2020-07-14] MEDS: Cefepime HCl 1 GM in D5W 55 ML IVPB SCH (21:53)
[2020-07-15] VITALS: BP 112/64
[2020-07-15 04:00] VITALS: BP 103/65
[2020-07-15] MEDS: Midodrine 10mg tab NG SCH ×3 (06:00→21:44)
--- NOTE | 2020-07-15 06:52 | NUR ---
NURSE HAND-OFF REPORT: Important Events on Shift:[Temp of 101.8, Dr. Noel aware, New orders received, verified and carried out.] Patient Status: [FC, Confused] Diet: [Jevity 1.2 @ 40cc/hr] Pending Orders: [] Pending Results/Labs:[] Pending MD notification:[] Latest Vital Signs: Temperature 98.8 , Pulse 101 , B/P 103 /65 , Respiratory Rate 19 , O2 SAT 98 , Nasal Cannula, O2 Flow Rate 1.0 . Vital Sign Comment: [] EKG Rhythm: Sinus Tachycardia Rhythm change?: N MD Notified?: N - MD Response: Latest Randolph Fall Score: 70 Fall Risk: High Risk Safety Measures: Call light Within Reach, Bed Alarm Zone 2, Side Rails Side Rails x3, Bed position Low and Locked. Fall Precautions: Yellow Socks Yellow Gown Door Sign Patient Fall Education Report given to [].
--- NOTE | 2020-07-15 07:27 | NUR ---
NURSE NOTES: Report given to Saranya RN
--- NOTE | 2020-07-15 07:39 | NUR ---
NURSE NOTES: Received patient in bed asleep. No SOB or acute distress. IV line intact. FC intact, draining yellow colored urine. Gtube intact, feeding ongoing, no signs of aspiration. HOB elevated. Bed locked in low position. Call light within reach. Will continue plan of care.
[2020-07-15 08:00] VITALS: BP 102/63
[2020-07-15] MEDS: Metoprolol Tartrate 12.5mg TAB GT SCH ×2 (08:15→21:43)
[2020-07-15] MEDS: Acetaminophen 650mg/20.3ml GT PRN (08:16)
[2020-07-15] MEDS: Cefepime HCl 1 GM in D5W 55 ML IVPB SCH ×2 (08:16→21:43)
[2020-07-15 09:34] LABS: BASOPHILS % (AUTO) 1.4 % (0.0-2.0); EOSINOPHILS % (AUTO) 1.2 % (0.0-3.0); HEMOGLOBIN 9.2 G/DL (14.2-18.0); LYMPHOCYTES % (AUTO) 17.5 % (20.0-45.0); MEAN CORPUSCULAR VOLUME 80 FL (80-99); MONOCYTES % (AUTO) 7.2 % (1.0-10.0); NEUTROPHILS % (AUTO) 72.7 % (45.0-75.0); PLATELET COUNT 521 K/UL (150-450); RED BLOOD COUNT 3.61 M/UL (4.70-6.10); RED CELL DISTRIBUTION WIDTH 17.2 % (11.6-14.8); WHITE BLOOD COUNT 9.6 K/UL (4.8-10.8)
[2020-07-15 10:03] LABS: ALANINE AMINOTRANSFERASE 32 U/L (12-78); ALBUMIN 1.7 G/DL (3.4-5.0); ALBUMIN/GLOBULIN RATIO 0.3 (1.0-2.7); ALKALINE PHOSPHATASE 164 U/L (46-116); ANION GAP 9 mmol/L (5-15); ASPARTATE AMINO TRANSFERASE 39 U/L (15-37); BILIRUBIN,TOTAL 0.3 MG/DL (0.2-1.0); BLOOD UREA NITROGEN 24 mg/dL (7-18); CALCIUM 9.9 MG/DL (8.5-10.1); CARBON DIOXIDE 24 MMOL/L (21-32); CHLORIDE 106 MMOL/L (98-107); CREATININE 0.9 MG/DL (0.55-1.30); PHOSPHORUS 4.3 MG/DL (2.5-4.9); POTASSIUM 4.3 MMOL/L (3.5-5.1); SODIUM 139 MMOL/L (136-145)
--- NOTE | 2020-07-15 11:00 | NUR ---
CASE MANAGEMENT:REVIEW 07/15/20 SI: SEPSIS. PNA. UTI 101.3 111 20 102/63 99% ON RA H/H-9.2/29.0 BUN+24 IS: IV CEFEPIME Q12 PEPCID GT BID MIDODRINE GT Q8HRS LOPRESSOR GT Q12 : TELEMETRY STATUS DCP: FROM [facility]
--- NOTE | 2020-07-15 11:28 | Pulmonology Progress Note ---
Subjective ROS Limited/Unobtainable: No Interval Events: Hgb better Constitutional: Reports: fever, other - T=101.8 HEENT: Repors: no symptoms Respiratory: Reports: no symptoms Cardiovascular: Reports: no symptoms Gastrointestinal/Abdominal: Reports: no symptoms Allergies: Coded Allergies: CEFPROZIL (Verified Allergy, Unknown, 07/08/20) Objective Last 24 Hour Vital Signs Date Time Temp Pulse Resp B/P (MAP) Pulse Ox O2 Delivery O2 Flow Rate FiO2 07/15/20 09:00 Room Air 07/15/20 08:15 111 102/63 07/15/20 08:00 106 07/15/20 08:00 101.3 111 20 102/63 (76) 99 07/15/20 04:00 98.8 105 19 103/65 (78) 98 07/15/20 04:00 101 07/15/20 00:00 89 07/15/20 00:00 98.6 92 18 112/64 (80) 97 07/14/20 21:52 99 124/75 07/14/20 21:00 Room Air 07/14/20 20:30 101.1 07/14/20 20:12 101.1 07/14/20 20:00 101.8 99 22 124/75 (91) 96 07/14/20 19:00 103 07/14/20 16:00 104 07/14/20 15:53 98.8 87 18 121/67 (85) 95 07/14/20 12:00 102 07/14/20 11:57 98.2 102 22 115/71 (86) 100 Intake and Output 07/14/20 07/15/20 19:00 07:00 Intake Total 990 ml Output Total 900 ml 500 ml Balance 90 ml -500 ml Intake Free Water 400 ml Tube Feeding 440 ml Blood Product 150 ml Output Urine Total 900 ml 500 ml # Voids 3 General Appearance: no acute distress HEENT: atraumatic Respiratory: lungs clear Cardiovascular: normal rate Abdomen: soft, non tender Laboratory Tests 07/15/20 08:50: White Blood Count 9.6, Red Blood Count 3.61L, Hemoglobin 9.2L, Hematocrit 29.0L, Mean Corpuscular Volume 80, Mean Corpuscular Hemoglobin 25.5L, Mean Corpuscular Hemoglobin Concent 31.7L, Red Cell Distribution Width 17.2H, Platelet Count 521H , Mean Platelet Volume 6.2L, Neutrophils (%) (Auto) 72.7, Lymphocytes (%) (Auto) 17.5L, Monocytes (%) (Auto) 7.2, Eosinophils (%) (Auto) 1.2, Basophils (%) (Auto) 1.4, Sodium Level 139, Potassium Level 4.3, Chloride Level 106, Carbon Dioxide Level 24, Anion Gap 9, Blood Urea Nitrogen 24H, Creatinine 0.9, Estimat Glomerular Filtration Rate > 60, Glucose Level 116H, Uric Acid 4.7, Calcium Level 9.9, Phosphorus Level 4.3, Magnesium Level 2.2, Total Bilirubin 0.3, Aspartate Amino Transf (AST/SGOT) 39H, Alanine Aminotransferase (ALT/SGPT) 32, Alkaline Phosphatase 164H, C-Reactive Protein, Quantitative 36.7H, Pro-B-Type Natriuretic Peptide 725H, Total Protein 6.7, Albumin 1.7L, Globulin 5.0, Albumin/Globulin Ratio 0.3L Current Medications Medications (Trade) Dose Ordered Sig/Giovanny Route PRN Reason Start Time Stop Time Status Last Admin Dose Admin Acetaminophen (Tylenol) 650 mg Q4H PRN GT Mild Pain (Pain Scale 1-3) 07/09/20 10:15 08/08/20 10:14 Acetaminophen (Tylenol) 650 mg Q6H PRN GT Temp >100.5 07/09/20 01:30 08/08/20 01:29 07/15/20 08:16 Cefepime HCl 1 gm/ Dextrose 55 ml @ 110 mls/hr EVERY 12 HOURS IVPB 07/14/20 21:00 07/21/20 20:59 07/15/20 08:16 Famotidine (Pepcid) 20 mg BID GT 07/12/20 18:00 10/10/20 17:59 07/15/20 08:15 Metoprolol Tartrate (Lopressor) 12.5 mg Q12HR GT 07/10/20 21:00 10/08/20 20:59 07/15/20 08:15 Midodrine (Pro-Amatine) 10 mg Q8HR NG 07/12/20 14:30 10/10/20 14:29 07/13/20 23:00 Assessment/Plan Assessment/Plan 1. Anemia - Hgb better, s/p 2 units of PRBC - GI consulted - now off heparin - Stool OB negative 2. Hypoxia on arrival - now on RA saturating at 100% - continue monitor for hypoxia and provide supplemental oxygen as needed 3. COVID-19 negative 4. Sepsis, likely secondary to UTI, HCAP - now off Levofloxacin, Zosyn - UCx grew E. Coli - on Cefepime (07/14-) 5. LIA, electrolyte abnormality - nephro following 6. CHF exacerbation - seen by cardio - on IV Lasix 20 mg QD - EF 65% - CXR 07/11 no acute process 7. MRSA nasal - contact precaution 8. DVT ppx - Venous duplex US neg for DVT - on SCD Hold dc given new fever and Abx The care for this patient was discussed with my supervising physician Time spent for this case was approximately 31 minutes Bandar Hansen Jul 15, 2020 11:28
[2020-07-15 11:48] VITALS: BP 100/56
--- NOTE | 2020-07-15 12:31 | NUR ---
INSURANCE CLINICALS/REVIEW FAXED TO [facility] [place] FX [phone] FX [phone].
--- NOTE | 2020-07-15 12:46 | Nephrology Progress Note ---
Assessment/Plan Problem List: (1) ILA (acute kidney injury) (2) Dehydration (3) Sepsis (4) Anemia (5) Hypercalcemia Assessment Acute renal failure Dehydration, hypercalcemia Hyperkalemia Anemia, low MCV Sepsis, UTI, healthcare associated pneumonia Plan July 15: Labs reviewed. Renal parameters stable. Serum calcium lowering. Continue per current management. July 14: Labs reviewed. Serum calcium elevated, even more when corrected for low albumin. Pamidronate 60 mg IV given. Continue to monitor electrolytes, calcium, phosphorus, magnesium. Continue per consultants. July 13: Labs reviewed. Hemoglobin lower. Renal parameters stable serum sodium 134. Continue to monitor electrolytes and hemoglobin and hematocrit. Continue per consultants. July 12: Labs reviewed. Hemoglobin 10.7. Electrolytes and renal parameters within normal limits. Continue as is. IV fluid and IV Lasix discontinued. Albumin bolus given. As needed midodrine given. July 11: Labs reviewed. Hemoglobin higher after transfusion. Electrolytes and renal parameters within normal limits. Continue per current treatment plan. Blood pressure stable July 10: Creatinine of 1.4 down to 1.1. Electrolytes noted and abnormalities addressed. Patient on 50 cc an hour IV fluid. Remains NPO. Significant drop in hemoglobin. Transfusion ordered by consultants. Continue to monitor renal parameters and electrolytes. 2D echo results noted. Ejection fraction 65%. Albumin bolus given. Previously: Slow hydrate Monitor renal parameters and electrolytes Anemia work-up Antibiotics Avoid nephrotoxic's Monitor urine output Per orders Subjective ROS Limited/Unobtainable: Yes Objective Objective Last 24 Hour Vital Signs Date Time Temp Pulse Resp B/P (MAP) Pulse Ox O2 Delivery O2 Flow Rate FiO2 07/15/20 11:48 99.9 98 20 100/56 (71) 97 07/15/20 09:00 Room Air 07/15/20 08:46 99.9 07/15/20 08:15 111 102/63 07/15/20 08:00 106 07/15/20 08:00 101.3 111 20 102/63 (76) 99 07/15/20 04:00 98.8 105 19 103/65 (78) 98 07/15/20 04:00 101 07/15/20 00:00 89 07/15/20 00:00 98.6 92 18 112/64 (80) 97 07/14/20 21:52 99 124/75 07/14/20 21:00 Room Air 07/14/20 20:30 101.1 07/14/20 20:12 101.1 07/14/20 20:00 101.8 99 22 124/75 (91) 96 07/14/20 19:00 103 07/14/20 16:00 104 07/14/20 15:53 98.8 87 18 121/67 (85) 95 Intake and Output 07/14/20 07/15/20 19:00 07:00 Intake Total 990 ml Output Total 900 ml 500 ml Balance 90 ml -500 ml Intake Free Water 400 ml Tube Feeding 440 ml Blood Product 150 ml Output Urine Total 900 ml 500 ml # Voids 3 Current Medications Medications (Trade) Dose Ordered Sig/Giovanny Route PRN Reason Start Time Stop Time Status Last Admin Dose Admin Acetaminophen (Tylenol) 650 mg Q4H PRN GT Mild Pain (Pain Scale 1-3) 07/09/20 10:15 08/08/20 10:14 Acetaminophen (Tylenol) 650 mg Q6H PRN GT Temp >100.5 07/09/20 01:30 08/08/20 01:29 07/15/20 08:16 Cefepime HCl 1 gm/ Dextrose 55 ml @ 110 mls/hr EVERY 12 HOURS IVPB 07/14/20 21:00 07/21/20 20:59 07/15/20 08:16 Famotidine (Pepcid) 20 mg BID GT 07/12/20 18:00 10/10/20 17:59 07/15/20 08:15 Metoprolol Tartrate (Lopressor) 12.5 mg Q12HR GT 07/10/20 21:00 10/08/20 20:59 07/15/20 08:15 Midodrine (Pro-Amatine) 10 mg Q8HR NG 07/12/20 14:30 10/10/20 14:29 07/13/20 23:00 Laboratory Tests 07/15/20 08:50: White Blood Count 9.6, Red Blood Count 3.61L, Hemoglobin 9.2L, Hematocrit 29.0L, Mean Corpuscular Volume 80, Mean Corpuscular Hemoglobin 25.5L, Mean Corpuscular Hemoglobin Concent 31.7L, Red Cell Distribution Width 17.2H, Platelet Count 521H , Mean Platelet Volume 6.2L, Neutrophils (%) (Auto) 72.7, Lymphocytes (%) (Auto) 17.5L, Monocytes (%) (Auto) 7.2, Eosinophils (%) (Auto) 1.2, Basophils (%) (Auto) 1.4, Sodium Level 139, Potassium Level 4.3, Chloride Level 106, Carbon Dioxide Level 24, Anion Gap 9, Blood Urea Nitrogen 24H, Creatinine 0.9, Estimat Glomerular Filtration Rate > 60, Glucose Level 116H, Uric Acid 4.7, Calcium Level 9.9, Phosphorus Level 4.3, Magnesium Level 2.2, Total Bilirubin 0.3, Aspartate Amino Transf (AST/SGOT) 39H, Alanine Aminotransferase (ALT/SGPT) 32, Alkaline Phosphatase 164H, C-Reactive Protein, Quantitative 36.7H, Pro-B-Type Natriuretic Peptide 725H, Total Protein 6.7, Albumin 1.7L, Globulin 5.0, Albumin/Globulin Ratio 0.3L Height (Feet): 5 Height (Inches): 6.00 Weight (Pounds): 150 General Appearance: no apparent distress Cardiovascular: tachycardia Respiratory/Chest: decreased breath sounds Abdomen: distended Kyaw Leal MD Jul 15, 2020 12:46
--- NOTE | 2020-07-15 14:18 | Surgery Progress Note ---
Surgery Progress Note Subjective Additional Comments ill appearing no n/v neuro input noted Objective Last 24 Hour Vital Signs Date Time Temp Pulse Resp B/P (MAP) Pulse Ox O2 Delivery O2 Flow Rate FiO2 07/15/20 11:48 99.9 98 20 100/56 (71) 97 07/15/20 09:00 Room Air 07/15/20 08:46 99.9 07/15/20 08:15 111 102/63 07/15/20 08:00 106 07/15/20 08:00 101.3 111 20 102/63 (76) 99 07/15/20 04:00 98.8 105 19 103/65 (78) 98 07/15/20 04:00 101 07/15/20 00:00 89 07/15/20 00:00 98.6 92 18 112/64 (80) 97 07/14/20 21:52 99 124/75 07/14/20 21:00 Room Air 07/14/20 20:30 101.1 07/14/20 20:12 101.1 07/14/20 20:00 101.8 99 22 124/75 (91) 96 07/14/20 19:00 103 07/14/20 16:00 104 07/14/20 15:53 98.8 87 18 121/67 (85) 95 I&O Intake and Output 07/14/20 07/15/20 19:00 07:00 Intake Total 990 ml Output Total 900 ml 500 ml Balance 90 ml -500 ml Intake Free Water 400 ml Tube Feeding 440 ml Blood Product 150 ml Output Urine Total 900 ml 500 ml # Voids 3 Cardiovascular: RSR Respiratory: decreased breath sounds Abdomen: soft, non-tender, present bowel sounds Extremities: no tenderness, no cyanosis Laboratory Tests Test 07/15/20 08:50 White Blood Count 9.6 K/UL (4.8-10.8) Red Blood Count 3.61 M/UL (4.70-6.10) L Hemoglobin 9.2 G/DL (14.2-18.0) L Hematocrit 29.0 % (42.0-52.0) L Mean Corpuscular Volume 80 FL (80-99) Mean Corpuscular Hemoglobin 25.5 PG (27.0-31.0) L Mean Corpuscular Hemoglobin Concent 31.7 G/DL (32.0-36.0) L Red Cell Distribution Width 17.2 % (11.6-14.8) H Platelet Count 521 K/UL (150-450) H Mean Platelet Volume 6.2 FL (6.5-10.1) L Neutrophils (%) (Auto) 72.7 % (45.0-75.0) Lymphocytes (%) (Auto) 17.5 % (20.0-45.0) L Monocytes (%) (Auto) 7.2 % (1.0-10.0) Eosinophils (%) (Auto) 1.2 % (0.0-3.0) Basophils (%) (Auto) 1.4 % (0.0-2.0) Sodium Level 139 MMOL/L (136-145) Potassium Level 4.3 MMOL/L (3.5-5.1) Chloride Level 106 MMOL/L (98-107) Carbon Dioxide Level 24 MMOL/L (21-32) Anion Gap 9 mmol/L (5-15) Blood Urea Nitrogen 24 mg/dL (7-18) H Creatinine 0.9 MG/DL (0.55-1.30) Estimat Glomerular Filtration Rate > 60 mL/min (>60) Glucose Level 116 MG/DL (74-106) H Uric Acid 4.7 MG/DL (2.6-7.2) Calcium Level 9.9 MG/DL (8.5-10.1) Phosphorus Level 4.3 MG/DL (2.5-4.9) Magnesium Level 2.2 MG/DL (1.8-2.4) Total Bilirubin 0.3 MG/DL (0.2-1.0) Aspartate Amino Transf (AST/SGOT) 39 U/L (15-37) H Alanine Aminotransferase (ALT/SGPT) 32 U/L (12-78) Alkaline Phosphatase 164 U/L (46-116) H C-Reactive Protein, Quantitative 36.7 mg/dL (0.00-0.90) H Pro-B-Type Natriuretic Peptide 725 pg/mL (0-125) H Total Protein 6.7 G/DL (6.4-8.2) Albumin 1.7 G/DL (3.4-5.0) L Globulin 5.0 g/dL Albumin/Globulin Ratio 0.3 (1.0-2.7) L Plan Problems: (1) Decubitus skin ulcer Assessment & Plan: Pt presented on admission with Contractures, Multiple Pressure Injuries .Pt is receiving Oxygen via NC. Both ears assessed and no evidence of Skin Breakdown noted. Full Thickness stage 4Pressure Injury L Buttocks (L)1.5cm x (W)1.4cm x (D) 0.2cm. Base of wound is 90% moist,sonia;10% slough. Non-Blanchable erythema along borders and periwound. DTPI Sacrococcygeal area (L)1.5cm x (W)0.8cm. Base of wound is maroon and indurated with surrounding non-blanchable erythema. DTPI L Trochanter(L)1.5cm x (W)0.8cm. Base of Pressure Injury is maroon and indurated.Surrounding Non-Blanchable erythema with delineated margins(L)8.5cm x (W)9cm. Unstageable Pressure Injury Plantar R Heel (L)2.5cm x (W)1.4cm. Stable dry eschar noted. Periwound is blanchable. Non-Blanchable erythema with fluctuance medial R Malleolus (L)4.5cm x (W)3cm. DTPI R Hallux (L)3cm x (W)2.4cm. Base of Pressure Injury is maroon and fluctuant. DTPI L lateral Malleolus(L)3cm x (W)3.5cm. Base of Pressure Injury is maroon and fluctuant. Tx.Plan: Cleanse wound L Buttocks with Saline. Apply TheraHoney. Apply Moisture Barrier Periwound. Cover with Optifoam drsg. Change Daily and prn. Apply Triad Paste to Sacrum. Cover with Optifoam drsg. Change every 3 days and prn. Apply Cavilon Skin Barrier to R and L trochanteric. Cover each site with Optifoam drsgs Change every 7 days and PRN. Apply Cavilon Skin BArrier to L Heel,Malleoli,Hallux. Cover each site with Optifoam drsgs. Change every 7 days and prn. Apply Cavilon Skin BArrier to R Heel , Malleoli ,Hallux. Cover each site with Optifoam drsgs. Change every 7 days and prn. Reposition at least every 2hours or as tolerated. Off-load heels with Pillow. APM/MARIA Mattress Overlay. (2) HCAP (healthcare-associated pneumonia) (3) Sepsis Assessment & Plan: lactic acidosis, elevated lft's abnormal labs renal insufficiency hypoxia -renal input appreciated -O2 supplement cxr noted cont abx steroids trend labs fluids thank you DAILY ESTIMATED NEEDS: Needs based on Wounds, 60kg 30-35kcal/kg kcals/kg 1402-6480 total kcals 1.5-2.0 g protein/kg 90-120 g total protein 25-30 mL/kg 0656-7041 total fluid mLs NUTRITION DIAGNOSIS: Increased kcal/prot needs R/T wound healing as evidenced by pt admitted w/ multiple wounds including stage 4 lt buttock wound and DTPI wounds @ sacrococcyx, L trochanter, R hallux, L lateral malleolus. CURRENT TF:NPO ENTERAL NUTRITION RECOMMENDATIONS: Osmolite 1.5 @ 55ml/hr x 24 hrs + Prosource 1pkt QD to provide 1320ml, 1980kcal, 83g +11g prot, 1006ml free water * As medically appropriate, initiate Osmolite 1.5 @ 15ml/hr x 6hrs * Advance 10ml q 4-6 hrs as tolerated to goal * Add Prosource 1pkt QD for additional 11g prot * HOB over 30 degrees/ water flush per MD ADDITIONAL RECOMMENDATIONS: * Daily calibrated bedscale wt: CHF dx, on lasix * Wound healing: Add Vit C 500mg BID, ZnSO4 220mg QD x 10 days TF @ goal will provide 100 % RDI Add El BID via PEG * Monitor lytes, replete as needed (4) UTI (urinary tract infection) Saleem Juan Jul 15, 2020 14:18
--- NOTE | 2020-07-15 14:39 | Infectious Diseases Prog Note ---
Assessment/Plan Assessment/Plan A; Fever E. coli UTI Anemia Pressure ulcers MRSA carrier CHF Dementia, P: CXR UA & urine culture Subjective ROS Limited/Unobtainable: Yes Constitutional: Reports: fever, other - Kw=108.8 Allergies: Coded Allergies: CEFPROZIL (Verified Allergy, Unknown, 07/08/20) Objective Last 24 Hour Vital Signs Date Time Temp Pulse Resp B/P (MAP) Pulse Ox O2 Delivery O2 Flow Rate FiO2 07/15/20 12:00 95 07/15/20 11:48 99.9 98 20 100/56 (71) 97 07/15/20 09:00 Room Air 07/15/20 08:46 99.9 07/15/20 08:15 111 102/63 07/15/20 08:00 106 07/15/20 08:00 101.3 111 20 102/63 (76) 99 07/15/20 04:00 98.8 105 19 103/65 (78) 98 07/15/20 04:00 101 07/15/20 00:00 89 07/15/20 00:00 98.6 92 18 112/64 (80) 97 07/14/20 21:52 99 124/75 07/14/20 21:00 Room Air 07/14/20 20:30 101.1 07/14/20 20:12 101.1 07/14/20 20:00 101.8 99 22 124/75 (91) 96 07/14/20 19:00 103 07/14/20 16:00 104 07/14/20 15:53 98.8 87 18 121/67 (85) 95 Height (Feet): 5 Height (Inches): 6.00 Weight (Pounds): 150 HEENT: mucous membranes moist Respiratory/Chest: lungs clear Cardiovascular: normal rate Abdomen: soft, non tender, other - GT feeding Extremities: no edema Neurologic/Psychiatric: aphasia, other - opens eyes Laboratory Tests Test 07/15/20 08:50 White Blood Count 9.6 K/UL (4.8-10.8) Red Blood Count 3.61 M/UL (4.70-6.10) L Hemoglobin 9.2 G/DL (14.2-18.0) L Hematocrit 29.0 % (42.0-52.0) L Mean Corpuscular Volume 80 FL (80-99) Mean Corpuscular Hemoglobin 25.5 PG (27.0-31.0) L Mean Corpuscular Hemoglobin Concent 31.7 G/DL (32.0-36.0) L Red Cell Distribution Width 17.2 % (11.6-14.8) H Platelet Count 521 K/UL (150-450) H Mean Platelet Volume 6.2 FL (6.5-10.1) L Neutrophils (%) (Auto) 72.7 % (45.0-75.0) Lymphocytes (%) (Auto) 17.5 % (20.0-45.0) L Monocytes (%) (Auto) 7.2 % (1.0-10.0) Eosinophils (%) (Auto) 1.2 % (0.0-3.0) Basophils (%) (Auto) 1.4 % (0.0-2.0) Sodium Level 139 MMOL/L (136-145) Potassium Level 4.3 MMOL/L (3.5-5.1) Chloride Level 106 MMOL/L (98-107) Carbon Dioxide Level 24 MMOL/L (21-32) Anion Gap 9 mmol/L (5-15) Blood Urea Nitrogen 24 mg/dL (7-18) H Creatinine 0.9 MG/DL (0.55-1.30) Estimat Glomerular Filtration Rate > 60 mL/min (>60) Glucose Level 116 MG/DL (74-106) H Uric Acid 4.7 MG/DL (2.6-7.2) Calcium Level 9.9 MG/DL (8.5-10.1) Phosphorus Level 4.3 MG/DL (2.5-4.9) Magnesium Level 2.2 MG/DL (1.8-2.4) Total Bilirubin 0.3 MG/DL (0.2-1.0) Aspartate Amino Transf (AST/SGOT) 39 U/L (15-37) H Alanine Aminotransferase (ALT/SGPT) 32 U/L (12-78) Alkaline Phosphatase 164 U/L (46-116) H C-Reactive Protein, Quantitative 36.7 mg/dL (0.00-0.90) H Pro-B-Type Natriuretic Peptide 725 pg/mL (0-125) H Total Protein 6.7 G/DL (6.4-8.2) Albumin 1.7 G/DL (3.4-5.0) L Globulin 5.0 g/dL Albumin/Globulin Ratio 0.3 (1.0-2.7) L Current Medications Medications (Trade) Dose Ordered Sig/Giovanny Route PRN Reason Start Time Stop Time Status Last Admin Dose Admin Acetaminophen (Tylenol) 650 mg Q4H PRN GT Mild Pain (Pain Scale 1-3) 07/09/20 10:15 08/08/20 10:14 Acetaminophen (Tylenol) 650 mg Q6H PRN GT Temp >100.5 07/09/20 01:30 08/08/20 01:29 07/15/20 08:16 Cefepime HCl 1 gm/ Dextrose 55 ml @ 110 mls/hr EVERY 12 HOURS IVPB 07/14/20 21:00 07/21/20 20:59 07/15/20 08:16 Famotidine (Pepcid) 20 mg BID GT 07/12/20 18:00 10/10/20 17:59 07/15/20 08:15 Metoprolol Tartrate (Lopressor) 12.5 mg Q12HR GT 07/10/20 21:00 10/08/20 20:59 07/15/20 08:15 Midodrine (Pro-Amatine) 10 mg Q8HR NG 07/12/20 14:30 10/10/20 14:29 07/15/20 14:10 Filemon Morejon MD Jul 15, 2020 14:38
[2020-07-15 15:32] VITALS: BP 114/75
--- NOTE | 2020-07-15 16:14 | Diagnostic Imaging Report ---
Indication: Cough Technique: One view of the chest Comparison: 07/11/2020 Findings: There is new or increased infiltrate in the right infrahilar region. Remainder of the lung bases are clear. The heart size is normal. Impression: New or increased right infrahilar infiltrate
--- NOTE | 2020-07-15 18:15 | Cardiology Progress Note ---
Assessment/Plan Status: stable Status Narrative SR, rate and SBP controlled. SBP improved after diuresis. Assessment/Plan 1. PNA and developing sepsis 2. CHF with elevated BNP BNP improved after diuresis with IV Lasix Bb for rate control 3. Dehydration and electrolyte imbalance 4. Sinus tachycardia 5. Anemia - acute on chronic Hgb improved 6. UTI 7. Aphasia 8. Dementia and h/o psych disorder Subjective ROS Limited/Unobtainable: Yes Subjective No distress, disoriented. Lying in bed Objective Last 24 Hour Vital Signs Date Time Temp Pulse Resp B/P (MAP) Pulse Ox O2 Delivery O2 Flow Rate FiO2 07/15/20 15:32 99.3 105 20 114/75 (88) 100 07/15/20 12:00 95 07/15/20 11:48 99.9 98 20 100/56 (71) 97 07/15/20 09:00 Room Air 07/15/20 08:46 99.9 07/15/20 08:15 111 102/63 07/15/20 08:00 106 07/15/20 08:00 101.3 111 20 102/63 (76) 99 07/15/20 04:00 98.8 105 19 103/65 (78) 98 07/15/20 04:00 101 07/15/20 00:00 89 07/15/20 00:00 98.6 92 18 112/64 (80) 97 07/14/20 21:52 99 124/75 07/14/20 21:00 Room Air 07/14/20 20:30 101.1 07/14/20 20:12 101.1 07/14/20 20:00 101.8 99 22 124/75 (91) 96 07/14/20 19:00 103 General Appearance: no apparent distress EENT: PERRL/EOMI Neck: no JVD Rhythm: NSR Cardiovascular: normal rate, regular rhythm Respiratory/Chest: no respiratory distress Abdomen: soft Extremities: trace edema Neurologic: disoriented Intake and Output 07/14/20 07/15/20 19:00 07:00 Intake Total 990 ml Output Total 900 ml 500 ml Balance 90 ml -500 ml Intake Free Water 400 ml Tube Feeding 440 ml Blood Product 150 ml Output Urine Total 900 ml 500 ml # Voids 3 Laboratory Tests Test 07/15/20 08:50 White Blood Count 9.6 K/UL (4.8-10.8) Red Blood Count 3.61 M/UL (4.70-6.10) L Hemoglobin 9.2 G/DL (14.2-18.0) L Hematocrit 29.0 % (42.0-52.0) L Mean Corpuscular Volume 80 FL (80-99) Mean Corpuscular Hemoglobin 25.5 PG (27.0-31.0) L Mean Corpuscular Hemoglobin Concent 31.7 G/DL (32.0-36.0) L Red Cell Distribution Width 17.2 % (11.6-14.8) H Platelet Count 521 K/UL (150-450) H Mean Platelet Volume 6.2 FL (6.5-10.1) L Neutrophils (%) (Auto) 72.7 % (45.0-75.0) Lymphocytes (%) (Auto) 17.5 % (20.0-45.0) L Monocytes (%) (Auto) 7.2 % (1.0-10.0) Eosinophils (%) (Auto) 1.2 % (0.0-3.0) Basophils (%) (Auto) 1.4 % (0.0-2.0) Sodium Level 139 MMOL/L (136-145) Potassium Level 4.3 MMOL/L (3.5-5.1) Chloride Level 106 MMOL/L (98-107) Carbon Dioxide Level 24 MMOL/L (21-32) Anion Gap 9 mmol/L (5-15) Blood Urea Nitrogen 24 mg/dL (7-18) H Creatinine 0.9 MG/DL (0.55-1.30) Estimat Glomerular Filtration Rate > 60 mL/min (>60) Glucose Level 116 MG/DL (74-106) H Uric Acid 4.7 MG/DL (2.6-7.2) Calcium Level 9.9 MG/DL (8.5-10.1) Phosphorus Level 4.3 MG/DL (2.5-4.9) Magnesium Level 2.2 MG/DL (1.8-2.4) Total Bilirubin 0.3 MG/DL (0.2-1.0) Aspartate Amino Transf (AST/SGOT) 39 U/L (15-37) H Alanine Aminotransferase (ALT/SGPT) 32 U/L (12-78) Alkaline Phosphatase 164 U/L (46-116) H C-Reactive Protein, Quantitative 36.7 mg/dL (0.00-0.90) H Pro-B-Type Natriuretic Peptide 725 pg/mL (0-125) H Total Protein 6.7 G/DL (6.4-8.2) Albumin 1.7 G/DL (3.4-5.0) L Globulin 5.0 g/dL Albumin/Globulin Ratio 0.3 (1.0-2.7) L Vanessa Edouard PA-C Jul 15, 2020 18:15
--- NOTE | 2020-07-15 19:19 | NUR ---
NURSE HAND-OFF REPORT: Important Events on Shift:episode of fever Patient Status: fatigued, confused Diet: Jevity 1.2 x 40cc/hr Pending Orders: Pending Results/Labs: Pending MD notification: Latest Vital Signs: Temperature 99.3 , Pulse 102 , B/P 114 /75 , Respiratory Rate 20 , O2 SAT 100 , Nasal Cannula, O2 Flow Rate 1.0 . Vital Sign Comment: EKG Rhythm: Sinus Tachycardia Rhythm change?: N MD Notified?: N - MD Response: Latest Randolph Fall Score: 70 Fall Risk: High Risk Safety Measures: Call light Within Reach, Bed Alarm Zone 2, Side Rails Side Rails x3, Bed position Low and Locked. Fall Precautions: Yellow Socks Yellow Gown Door Sign Patient Fall Education Report given to CUATE MCCORMICK.
--- NOTE | 2020-07-15 19:20 | NUR ---
NURSE NOTES: Received report from Nick Beaver. Pt awake in bed, eys track, afebrile and has no respiratory distress noted. TP saturating at 100% on RA. with Right wrist 22 g Iv line intact, patent and asymptomatic. On jevity 1.2 at 40 cc via GT intact, flushing and no residual noted. Needs were attended. HOB elevated. Call light within reach. Bed rail are up and wheels are locked. Continue plan of care
[2020-07-15 20:00] VITALS: BP 114/69
[2020-07-16] VITALS: BP 125/75
--- NOTE | 2020-07-16 01:00 | NUR ---
NURSE NOTES: Pt asleep in bed. Arousable. HOB elevated. Tolerating GT feeding. Continue to monitor the patient
[2020-07-16 04:00] VITALS: BP 119/77
[2020-07-16] MEDS: Midodrine 10mg tab NG SCH ×3 (05:40→22:40)
--- NOTE | 2020-07-16 06:32 | NUR ---
CASE MANAGEMENT:REVIEW 07/16/20 SI: SEPSIS. PNA. UTI 98.0 100 17 119/77 98% ON RA IS: IV CEFEPIME Q12 PEPCID GT BID MIDODRINE GT Q8HRS LOPRESSOR GT Q12 : TELEMETRY STATUS DCP: FROM [facility]
[2020-07-16 07:15] LABS: BASOPHILS % (AUTO) 1.2 % (0.0-2.0); EOSINOPHILS % (AUTO) 1.3 % (0.0-3.0); HEMATOCRIT 28.1 % (42.0-52.0); HEMOGLOBIN 8.8 G/DL (14.2-18.0); LYMPHOCYTES % (AUTO) 22.9 % (20.0-45.0); MEAN CORPUSCULAR VOLUME 80 FL (80-99); MONOCYTES % (AUTO) 9.8 % (1.0-10.0); NEUTROPHILS % (AUTO) 64.8 % (45.0-75.0); PLATELET COUNT 578 K/UL (150-450); RED BLOOD COUNT 3.49 M/UL (4.70-6.10); RED CELL DISTRIBUTION WIDTH 17.4 % (11.6-14.8); WHITE BLOOD COUNT 11.7 K/UL (4.8-10.8)
--- NOTE | 2020-07-16 07:25 | NUR ---
NURSE NOTES: RECEIVED REPORT FROM Agustin [facility]. RECEIVED PT WITH HOB ELEVATED 45 DEGREE ALERT BUT CONFUSE , NO S/S OF PAIN OR ANY DISCOMFORT AT THIS TIME.PT SEEMS CALM ,REPOSITIONED IN BED Q 2HRS TO PROVIDE COMFORT AND PREVENT FURTHER SKIN BREAK DOWN.PT RECEIVING JEVITY 1.2 @ 40CC/HRS TOLERATED WELL ,NO RESIDUAL NOTED. F/C ITAL[place] # [id number] PATENT, DRAINING WELL YELLOW URINE COLOR.H.L ON RT WRIST G#22 PAtent and intact.NO ACUTE DISTRESS NOTED AT THIS TIME. WILL CONT TO MONITOR.
--- NOTE | 2020-07-16 07:36 | NUR ---
NURSE NOTES: NURSE HAND-OFF REPORT: Important Events on Shift: none Patient Status: stable Diet: jevity 1.2 at 40cc/hr Pending Orders: n Pending Results/Labs:n Pending MD notification:n Latest Vital Signs: Temperature 98.0 , Pulse 100 , B/P 119 /77 , Respiratory Rate 17 , O2 SAT 98 , Nasal Cannula, O2 Flow Rate 1.0 . Vital Sign Comment: n EKG Rhythm: Sinus Rhythm Rhythm change?: N MD Notified?: N - MD Response: Latest Randolph Fall Score: 70 Fall Risk: High Risk Safety Measures: Call light Within Reach, Bed Alarm Zone 2, Side Rails Side Rails x3, Bed position Low and Locked. Fall Precautions: Yellow Socks Yellow Gown Door Sign Patient Fall Education Report given to Nick Hoang. Pt stable in bed.
[2020-07-16 07:38] LABS: ALANINE AMINOTRANSFERASE 43 U/L (12-78); ALBUMIN 1.7 G/DL (3.4-5.0); ALBUMIN/GLOBULIN RATIO 0.3 (1.0-2.7); ALKALINE PHOSPHATASE 181 U/L (46-116); ANION GAP 9 mmol/L (5-15); ASPARTATE AMINO TRANSFERASE 47 U/L (15-37); BILIRUBIN,TOTAL 0.4 MG/DL (0.2-1.0); BLOOD UREA NITROGEN 26 mg/dL (7-18); CALCIUM 9.3 MG/DL (8.5-10.1); CARBON DIOXIDE 24 MMOL/L (21-32); CHLORIDE 102 MMOL/L (98-107); CREATININE 0.8 MG/DL (0.55-1.30); PHOSPHORUS 4.5 MG/DL (2.5-4.9); POTASSIUM 4.1 MMOL/L (3.5-5.1); SODIUM 135 MMOL/L (136-145)
[2020-07-16 08:00] VITALS: BP 107/67
--- NOTE | 2020-07-16 09:08 | Neurology Progress Note ---
Interim History Interim History ROS Limited/Unobtainable: Yes Events: remains confused. Objective Physical Exam Last Vital Signs Date Time Temp Pulse Resp B/P (MAP) Pulse Ox O2 Delivery O2 Flow Rate FiO2 07/16/20 04:00 98.0 100 17 119/77 (91) 98 07/15/20 21:00 Room Air 07/10/20 21:00 1.0 Laboratory Tests Test 07/16/20 06:50 White Blood Count 11.7 K/UL (4.8-10.8) H Red Blood Count 3.49 M/UL (4.70-6.10) L Hemoglobin 8.8 G/DL (14.2-18.0) L Hematocrit 28.1 % (42.0-52.0) L Mean Corpuscular Volume 80 FL (80-99) Mean Corpuscular Hemoglobin 25.3 PG (27.0-31.0) L Mean Corpuscular Hemoglobin Concent 31.4 G/DL (32.0-36.0) L Red Cell Distribution Width 17.4 % (11.6-14.8) H Platelet Count 578 K/UL (150-450) H Mean Platelet Volume 6.0 FL (6.5-10.1) L Neutrophils (%) (Auto) 64.8 % (45.0-75.0) Lymphocytes (%) (Auto) 22.9 % (20.0-45.0) Monocytes (%) (Auto) 9.8 % (1.0-10.0) Eosinophils (%) (Auto) 1.3 % (0.0-3.0) Basophils (%) (Auto) 1.2 % (0.0-2.0) Sodium Level 135 MMOL/L (136-145) L Potassium Level 4.1 MMOL/L (3.5-5.1) Chloride Level 102 MMOL/L (98-107) Carbon Dioxide Level 24 MMOL/L (21-32) Anion Gap 9 mmol/L (5-15) Blood Urea Nitrogen 26 mg/dL (7-18) H Creatinine 0.8 MG/DL (0.55-1.30) Estimat Glomerular Filtration Rate > 60 mL/min (>60) Glucose Level 107 MG/DL (74-106) H Calcium Level 9.3 MG/DL (8.5-10.1) Phosphorus Level 4.5 MG/DL (2.5-4.9) Magnesium Level 2.3 MG/DL (1.8-2.4) Total Bilirubin 0.4 MG/DL (0.2-1.0) Aspartate Amino Transf (AST/SGOT) 47 U/L (15-37) H Alanine Aminotransferase (ALT/SGPT) 43 U/L (12-78) Alkaline Phosphatase 181 U/L (46-116) H Total Protein 7.1 G/DL (6.4-8.2) Albumin 1.7 G/DL (3.4-5.0) L Globulin 5.4 g/dL Albumin/Globulin Ratio 0.3 (1.0-2.7) L Neurologic Exam Objective General: pt is lying in bed no distress he is cachectic appearing Neuro: He is awake, is verbal is confused and disoriented has no insight to situation, Comprehension is not intact Cranial nerves II-XI tested. Tongue is midline PERRLA Hearing is intact. No involuntarty movements noted. Motor Exam: bilateral upper extremities 2/5, lower bilat extremities 2/5. He is weak Sensation not able intact. Gait not tested Impression/Recommendations Status: stable Diagnostic Impression IMAGING: CT of the chest was obtained on 07/08/2020, yesterday, which shows consolidation in the left upper lobe. EKG, sinus tachycardia. LABORATORY DATA: Reviewed Assessment and Rec's: 1. Encephalopathy Metabolic --> we do not know patient's baseline however it is stated in his records that he has diagnosis of dementia and Alzheimers Disease this needs to be considered --> Consider Imaging of brain with CT vs MRI if needed --> He also has a UTI infection which could make it worse and sepsis 2. Urinary tract infection. --> abx 3. Cognitive impairment. 4. Complicated past history of PDA pseudoaneurysm, status post embolization. 5. History of previous duodenal ulcer, status post perforation. --> wound care 6. Sepsis Thank you for allowing us to participate in patient's care plan of care was discussed with Dr. Song Stovall who agrees. Dawn Alcala NP Jul 16, 2020 09:08
--- NOTE | 2020-07-16 09:48 | NUR ---
INSURANCE CLINICALS/REVIEW FAXED TO [facility] [place] FX [phone] FX [phone].
[2020-07-16] MEDS: Cefepime HCl 1 GM in D5W 55 ML IVPB SCH ×2 (09:50→20:24)
[2020-07-16] MEDS: Metoprolol Tartrate 12.5mg TAB GT SCH ×2 (09:50→20:25)
--- NOTE | 2020-07-16 10:50 | NUR ---
RD ASSESSMENT & RECOMMENDATIONS SEE CARE ACTIVITY FOR COMPLETE ASSESSMENT DAILY ESTIMATED NEEDS: Needs based on Wounds, 60kg 30-35kcal/kg kcals/kg 2503-3948 total kcals 1.5-2.0 g protein/kg 90-120 g total protein 25-30 mL/kg 6954-2985 total fluid mLs NUTRITION DIAGNOSIS: Increased kcal/prot needs R/T wound healing as evidenced by pt admitted w/ multiple wounds including stage 4 lt buttock wound and DTPI wounds @ sacrococcyx, L trochanter, R hallux, L lateral malleolus. CURRENT TF: Now Jevity 1.2 @40ml/hr ENTERAL NUTRITION RECOMMENDATIONS: Osmolite 1.5 @ 55ml/hr x 24 hrs + Prosource 1pkt QD to provide 1320ml, 1980kcal, 83g +11g prot, 1006ml free water * rec TF change to better meet est kcal and pro needs. Initiate Osmolite 1.5 @ 25ml/hr x 6hrs, advance 10ml q 4-6 hrs as tolerated to goal * Add Prosource 1pkt QD for additional 11g prot * HOB over 30 degrees/ water flush per MD ADDITIONAL RECOMMENDATIONS: * Daily calibrated bedscale wt: CHF dx, on lasix * Wound healing: Add Vit C 500mg BID, ZnSO4 220mg QD x 10 days TF @ goal will provide 100 % RDI Add El BID via PEG * Monitor lytes, replete as needed
--- NOTE | 2020-07-16 11:01 | Infectious Diseases Prog Note ---
Assessment/Plan Assessment/Plan antibiotics : cefepime A 1. e.coli UTI 2. dementia 3. renal failure resolved 4. MRSA nasal colonization 5. pneumonia P 1. continue cefepime 2. will follow up cultures Subjective ROS Limited/Unobtainable: Yes Allergies: Coded Allergies: CEFPROZIL (Verified Allergy, Unknown, 07/08/20) Objective Last 24 Hour Vital Signs Date Time Temp Pulse Resp B/P (MAP) Pulse Ox O2 Delivery O2 Flow Rate FiO2 07/16/20 09:50 100 119/77 07/16/20 09:00 Room Air 07/16/20 08:00 97.9 101 20 107/67 (80) 98 07/16/20 08:00 96 07/16/20 04:00 98.0 100 17 119/77 (91) 98 07/16/20 03:10 98 07/16/20 00:00 98.9 96 19 125/75 (92) 100 07/15/20 23:00 93 07/15/20 21:43 105 116/75 07/15/20 21:00 Room Air 07/15/20 20:42 106 07/15/20 20:00 99.7 107 19 114/69 (84) 100 07/15/20 16:00 102 07/15/20 15:32 99.3 105 20 114/75 (88) 100 07/15/20 12:00 95 07/15/20 11:48 99.9 98 20 100/56 (71) 97 Height (Feet): 5 Height (Inches): 6.00 Weight (Pounds): 150 Respiratory/Chest: lungs clear Cardiovascular: normal rate, regular rhythm, no gallop/murmur Abdomen: soft, non tender, other - GT Extremities: other - + edema Laboratory Tests Test 07/16/20 06:50 White Blood Count 11.7 K/UL (4.8-10.8) H Red Blood Count 3.49 M/UL (4.70-6.10) L Hemoglobin 8.8 G/DL (14.2-18.0) L Hematocrit 28.1 % (42.0-52.0) L Mean Corpuscular Volume 80 FL (80-99) Mean Corpuscular Hemoglobin 25.3 PG (27.0-31.0) L Mean Corpuscular Hemoglobin Concent 31.4 G/DL (32.0-36.0) L Red Cell Distribution Width 17.4 % (11.6-14.8) H Platelet Count 578 K/UL (150-450) H Mean Platelet Volume 6.0 FL (6.5-10.1) L Neutrophils (%) (Auto) 64.8 % (45.0-75.0) Lymphocytes (%) (Auto) 22.9 % (20.0-45.0) Monocytes (%) (Auto) 9.8 % (1.0-10.0) Eosinophils (%) (Auto) 1.3 % (0.0-3.0) Basophils (%) (Auto) 1.2 % (0.0-2.0) Sodium Level 135 MMOL/L (136-145) L Potassium Level 4.1 MMOL/L (3.5-5.1) Chloride Level 102 MMOL/L (98-107) Carbon Dioxide Level 24 MMOL/L (21-32) Anion Gap 9 mmol/L (5-15) Blood Urea Nitrogen 26 mg/dL (7-18) H Creatinine 0.8 MG/DL (0.55-1.30) Estimat Glomerular Filtration Rate > 60 mL/min (>60) Glucose Level 107 MG/DL (74-106) H Calcium Level 9.3 MG/DL (8.5-10.1) Phosphorus Level 4.5 MG/DL (2.5-4.9) Magnesium Level 2.3 MG/DL (1.8-2.4) Total Bilirubin 0.4 MG/DL (0.2-1.0) Aspartate Amino Transf (AST/SGOT) 47 U/L (15-37) H Alanine Aminotransferase (ALT/SGPT) 43 U/L (12-78) Alkaline Phosphatase 181 U/L (46-116) H Total Protein 7.1 G/DL (6.4-8.2) Albumin 1.7 G/DL (3.4-5.0) L Globulin 5.4 g/dL Albumin/Globulin Ratio 0.3 (1.0-2.7) L Current Medications Medications (Trade) Dose Ordered Sig/Giovanny Route PRN Reason Start Time Stop Time Status Last Admin Dose Admin Acetaminophen (Tylenol) 650 mg Q4H PRN GT Mild Pain (Pain Scale 1-3) 07/09/20 10:15 08/08/20 10:14 Acetaminophen (Tylenol) 650 mg Q6H PRN GT Temp >100.5 07/09/20 01:30 08/08/20 01:29 07/15/20 08:16 Cefepime HCl 1 gm/ Dextrose 55 ml @ 110 mls/hr EVERY 12 HOURS IVPB 07/14/20 21:00 07/21/20 20:59 07/16/20 09:50 Famotidine (Pepcid) 20 mg BID GT 07/12/20 18:00 10/10/20 17:59 07/16/20 09:50 Metoprolol Tartrate (Lopressor) 12.5 mg Q12HR GT 07/10/20 21:00 10/08/20 20:59 07/16/20 09:50 Midodrine (Pro-Amatine) 10 mg Q8HR NG 07/12/20 14:30 10/10/20 14:29 07/16/20 05:40 Christian Noel MD Jul 16, 2020 11:01
[2020-07-16 11:55] VITALS: BP 102/63
--- NOTE | 2020-07-16 12:55 | Surgery Progress Note ---
Surgery Progress Note Subjective Additional Comments afebrile, HD stable wbc no n/v Objective Last 24 Hour Vital Signs Date Time Temp Pulse Resp B/P (MAP) Pulse Ox O2 Delivery O2 Flow Rate FiO2 07/16/20 11:55 97.9 93 20 102/63 (76) 96 07/16/20 09:50 100 119/77 07/16/20 09:00 Room Air 07/16/20 08:00 97.9 101 20 107/67 (80) 98 07/16/20 08:00 96 07/16/20 04:00 98.0 100 17 119/77 (91) 98 07/16/20 03:10 98 07/16/20 00:00 98.9 96 19 125/75 (92) 100 07/15/20 23:00 93 07/15/20 21:43 105 116/75 07/15/20 21:00 Room Air 07/15/20 20:42 106 07/15/20 20:00 99.7 107 19 114/69 (84) 100 07/15/20 16:00 102 07/15/20 15:32 99.3 105 20 114/75 (88) 100 I&O Intake and Output 07/15/20 07/16/20 19:00 07:00 Intake Total 585 ml Output Total 425 ml 1300 ml Balance -425 ml -715 ml Intake Free Water 50 ml IV Total 55 ml Tube Feeding 480 ml Output Urine Total 425 ml 800 ml Stool Total 500 ml # Bowel Movements 1 1 Cardiovascular: RSR Respiratory: decreased breath sounds Abdomen: soft, non-tender, present bowel sounds Extremities: no edema, no tenderness, no cyanosis Laboratory Tests Test 07/16/20 06:50 White Blood Count 11.7 K/UL (4.8-10.8) H Red Blood Count 3.49 M/UL (4.70-6.10) L Hemoglobin 8.8 G/DL (14.2-18.0) L Hematocrit 28.1 % (42.0-52.0) L Mean Corpuscular Volume 80 FL (80-99) Mean Corpuscular Hemoglobin 25.3 PG (27.0-31.0) L Mean Corpuscular Hemoglobin Concent 31.4 G/DL (32.0-36.0) L Red Cell Distribution Width 17.4 % (11.6-14.8) H Platelet Count 578 K/UL (150-450) H Mean Platelet Volume 6.0 FL (6.5-10.1) L Neutrophils (%) (Auto) 64.8 % (45.0-75.0) Lymphocytes (%) (Auto) 22.9 % (20.0-45.0) Monocytes (%) (Auto) 9.8 % (1.0-10.0) Eosinophils (%) (Auto) 1.3 % (0.0-3.0) Basophils (%) (Auto) 1.2 % (0.0-2.0) Sodium Level 135 MMOL/L (136-145) L Potassium Level 4.1 MMOL/L (3.5-5.1) Chloride Level 102 MMOL/L (98-107) Carbon Dioxide Level 24 MMOL/L (21-32) Anion Gap 9 mmol/L (5-15) Blood Urea Nitrogen 26 mg/dL (7-18) H Creatinine 0.8 MG/DL (0.55-1.30) Estimat Glomerular Filtration Rate > 60 mL/min (>60) Glucose Level 107 MG/DL (74-106) H Calcium Level 9.3 MG/DL (8.5-10.1) Phosphorus Level 4.5 MG/DL (2.5-4.9) Magnesium Level 2.3 MG/DL (1.8-2.4) Total Bilirubin 0.4 MG/DL (0.2-1.0) Aspartate Amino Transf (AST/SGOT) 47 U/L (15-37) H Alanine Aminotransferase (ALT/SGPT) 43 U/L (12-78) Alkaline Phosphatase 181 U/L (46-116) H Total Protein 7.1 G/DL (6.4-8.2) Albumin 1.7 G/DL (3.4-5.0) L Globulin 5.4 g/dL Albumin/Globulin Ratio 0.3 (1.0-2.7) L Plan Problems: (1) Decubitus skin ulcer Assessment & Plan: Pt presented on admission with Contractures, Multiple Pressure Injuries .Pt is receiving Oxygen via NC. Both ears assessed and no evidence of Skin Breakdown noted. Full Thickness stage 4Pressure Injury L Buttocks (L)1.5cm x (W)1.4cm x (D) 0.2cm. Base of wound is 90% moist,sonia;10% slough. Non-Blanchable erythema along borders and periwound. DTPI Sacrococcygeal area (L)1.5cm x (W)0.8cm. Base of wound is maroon and indurated with surrounding non-blanchable erythema. DTPI L Trochanter(L)1.5cm x (W)0.8cm. Base of Pressure Injury is maroon and indurated.Surrounding Non-Blanchable erythema with delineated margins(L)8.5cm x (W)9cm. Unstageable Pressure Injury Plantar R Heel (L)2.5cm x (W)1.4cm. Stable dry eschar noted. Periwound is blanchable. Non-Blanchable erythema with fluctuance medial R Malleolus (L)4.5cm x (W)3cm. DTPI R Hallux (L)3cm x (W)2.4cm. Base of Pressure Injury is maroon and fluctuant. DTPI L lateral Malleolus(L)3cm x (W)3.5cm. Base of Pressure Injury is maroon and fluctuant. Tx.Plan: Cleanse wound L Buttocks with Saline. Apply TheraHoney. Apply Moisture Barrier Periwound. Cover with Optifoam drsg. Change Daily and prn. Apply Triad Paste to Sacrum. Cover with Optifoam drsg. Change every 3 days and prn. Apply Cavilon Skin Barrier to R and L trochanteric. Cover each site with Optifoam drsgs Change every 7 days and PRN. Apply Cavilon Skin BArrier to L Heel,Malleoli,Hallux. Cover each site with Optifoam drsgs. Change every 7 days and prn. Apply Cavilon Skin BArrier to R Heel , Malleoli ,Hallux. Cover each site with Optifoam drsgs. Change every 7 days and prn. Reposition at least every 2hours or as tolerated. Off-load heels with Pillow. APM/MARIA Mattress Overlay. (2) HCAP (healthcare-associated pneumonia) (3) Sepsis Assessment & Plan: lactic acidosis, elevated lft's abnormal labs renal insufficiency hypoxia -renal input appreciated -O2 supplement cxr noted cont abx steroids trend labs fluids thank you DAILY ESTIMATED NEEDS: Needs based on Wounds, 60kg 30-35kcal/kg kcals/kg 3922-8408 total kcals 1.5-2.0 g protein/kg 90-120 g total protein 25-30 mL/kg 4944-1526 total fluid mLs NUTRITION DIAGNOSIS: Increased kcal/prot needs R/T wound healing as evidenced by pt admitted w/ multiple wounds including stage 4 lt buttock wound and DTPI wounds @ sacrococcyx, L trochanter, R hallux, L lateral malleolus. CURRENT TF:NPO ENTERAL NUTRITION RECOMMENDATIONS: Osmolite 1.5 @ 55ml/hr x 24 hrs + Prosource 1pkt QD to provide 1320ml, 1980kcal, 83g +11g prot, 1006ml free water * As medically appropriate, initiate Osmolite 1.5 @ 15ml/hr x 6hrs * Advance 10ml q 4-6 hrs as tolerated to goal * Add Prosource 1pkt QD for additional 11g prot * HOB over 30 degrees/ water flush per MD ADDITIONAL RECOMMENDATIONS: * Daily calibrated bedscale wt: CHF dx, on lasix * Wound healing: Add Vit C 500mg BID, ZnSO4 220mg QD x 10 days TF @ goal will provide 100 % RDI Add El BID via PEG * Monitor lytes, replete as needed (4) UTI (urinary tract infection) Saleem Juan Jul 16, 2020 12:55
--- NOTE | 2020-07-16 13:46 | Nephrology Progress Note ---
Assessment/Plan Problem List: (1) ILA (acute kidney injury) (2) Dehydration (3) Sepsis (4) Anemia (5) Hypercalcemia Assessment Acute renal failure Dehydration, hypercalcemia Hyperkalemia Anemia, low MCV Sepsis, UTI, healthcare associated pneumonia Plan July 16: Labs are reviewed. Renal parameters are stable. Serum calcium lowering. Will observe serum sodium 135. July 15: Labs reviewed. Renal parameters stable. Serum calcium lowering. Continue per current management. July 14: Labs reviewed. Serum calcium elevated, even more when corrected for low albumin. Pamidronate 60 mg IV given. Continue to monitor electrolytes, calcium, phosphorus, magnesium. Continue per consultants. July 13: Labs reviewed. Hemoglobin lower. Renal parameters stable serum sodium 134. Continue to monitor electrolytes and hemoglobin and hematocrit. Continue per consultants. July 12: Labs reviewed. Hemoglobin 10.7. Electrolytes and renal parameters within normal limits. Continue as is. IV fluid and IV Lasix discontinued. Albumin bolus given. As needed midodrine given. July 11: Labs reviewed. Hemoglobin higher after transfusion. Electrolytes and renal parameters within normal limits. Continue per current treatment plan. Blood pressure stable July 10: Creatinine of 1.4 down to 1.1. Electrolytes noted and abnormalities addressed. Patient on 50 cc an hour IV fluid. Remains NPO. Significant drop in hemoglobin. Transfusion ordered by consultants. Continue to monitor renal parameters and electrolytes. 2D echo results noted. Ejection fraction 65%. Albumin bolus given. Previously: Slow hydrate Monitor renal parameters and electrolytes Anemia work-up Antibiotics Avoid nephrotoxic's Monitor urine output Per orders Subjective ROS Limited/Unobtainable: No Constitutional: Reports: malaise, weakness Objective Objective Last 24 Hour Vital Signs Date Time Temp Pulse Resp B/P (MAP) Pulse Ox O2 Delivery O2 Flow Rate FiO2 07/16/20 11:55 97.9 93 20 102/63 (76) 96 07/16/20 09:50 100 119/77 07/16/20 09:00 Room Air 07/16/20 08:00 97.9 101 20 107/67 (80) 98 07/16/20 08:00 96 07/16/20 04:00 98.0 100 17 119/77 (91) 98 07/16/20 03:10 98 07/16/20 00:00 98.9 96 19 125/75 (92) 100 07/15/20 23:00 93 07/15/20 21:43 105 116/75 07/15/20 21:00 Room Air 07/15/20 20:42 106 07/15/20 20:00 99.7 107 19 114/69 (84) 100 07/15/20 16:00 102 07/15/20 15:32 99.3 105 20 114/75 (88) 100 Intake and Output 07/15/20 07/16/20 19:00 07:00 Intake Total 585 ml Output Total 425 ml 1300 ml Balance -425 ml -715 ml Intake Free Water 50 ml IV Total 55 ml Tube Feeding 480 ml Output Urine Total 425 ml 800 ml Stool Total 500 ml # Bowel Movements 1 1 Current Medications Medications (Trade) Dose Ordered Sig/Giovanny Route PRN Reason Start Time Stop Time Status Last Admin Dose Admin Acetaminophen (Tylenol) 650 mg Q4H PRN GT Mild Pain (Pain Scale 1-3) 07/09/20 10:15 08/08/20 10:14 Acetaminophen (Tylenol) 650 mg Q6H PRN GT Temp >100.5 07/09/20 01:30 08/08/20 01:29 07/15/20 08:16 Cefepime HCl 1 gm/ Dextrose 55 ml @ 110 mls/hr EVERY 12 HOURS IVPB 07/14/20 21:00 07/21/20 20:59 07/16/20 09:50 Famotidine (Pepcid) 20 mg BID GT 07/12/20 18:00 10/10/20 17:59 07/16/20 09:50 Metoprolol Tartrate (Lopressor) 12.5 mg Q12HR GT 07/10/20 21:00 10/08/20 20:59 07/16/20 09:50 Midodrine (Pro-Amatine) 10 mg Q8HR NG 07/12/20 14:30 10/10/20 14:29 07/16/20 13:20 Laboratory Tests 07/16/20 06:50: White Blood Count 11.7H, Red Blood Count 3.49L, Hemoglobin 8.8L, Hematocrit 28.1L, Mean Corpuscular Volume 80, Mean Corpuscular Hemoglobin 25.3L, Mean Corpuscular Hemoglobin Concent 31.4L, Red Cell Distribution Width 17.4H, Platelet Count 578H, Mean Platelet Volume 6.0L, Neutrophils (%) (Auto) 64.8, Lymphocytes (%) (Auto) 22.9, Monocytes (%) (Auto) 9.8, Eosinophils (%) (Auto) 1.3, Basophils (%) (Auto) 1.2, Sodium Level 135L, Potassium Level 4.1, Chloride Level 102, Carbon Dioxide Level 24, Anion Gap 9, Blood Urea Nitrogen 26H, Creatinine 0.8, Estimat Glomerular Filtration Rate > 60, Glucose Level 107H, Calcium Level 9.3, Phosphorus Level 4.5, Magnesium Level 2.3, Total Bilirubin 0.4, Aspartate Amino Transf (AST/SGOT) 47H, Alanine Aminotransferase (ALT/SGPT) 43, Alkaline Phosphatase 181H, Total Protein 7.1, Albumin 1.7L, Globulin 5.4, Albumin/Globulin Ratio 0.3L Height (Feet): 5 Height (Inches): 6.00 Weight (Pounds): 150 General Appearance: no apparent distress, lethargic Cardiovascular: tachycardia Respiratory/Chest: decreased breath sounds Abdomen: distended Kyaw Leal MD Jul 16, 2020 13:46
--- NOTE | 2020-07-16 14:42 | NUR ---
*-*DISCHARGE PLANNING*-* PATIENT HAS BEEN ACCEPTED BACK TO: [facility] P: [phone] ROOM# 19.B
--- NOTE | 2020-07-16 14:51 | Pulmonology Progress Note ---
Subjective ROS Limited/Unobtainable: No Interval Events: Hgb better Constitutional: Reports: fever, other - Tmax=99.7 HEENT: Repors: no symptoms Respiratory: Reports: no symptoms Cardiovascular: Reports: no symptoms Gastrointestinal/Abdominal: Reports: no symptoms Allergies: Coded Allergies: CEFPROZIL (Verified Allergy, Unknown, 07/08/20) Objective Last 24 Hour Vital Signs Date Time Temp Pulse Resp B/P (MAP) Pulse Ox O2 Delivery O2 Flow Rate FiO2 07/16/20 12:00 89 07/16/20 11:55 97.9 93 20 102/63 (76) 96 07/16/20 09:50 100 119/77 07/16/20 09:00 Room Air 07/16/20 08:00 97.9 101 20 107/67 (80) 98 07/16/20 08:00 96 07/16/20 04:00 98.0 100 17 119/77 (91) 98 07/16/20 03:10 98 07/16/20 00:00 98.9 96 19 125/75 (92) 100 07/15/20 23:00 93 07/15/20 21:43 105 116/75 07/15/20 21:00 Room Air 07/15/20 20:42 106 07/15/20 20:00 99.7 107 19 114/69 (84) 100 07/15/20 16:00 102 07/15/20 15:32 99.3 105 20 114/75 (88) 100 Intake and Output 07/15/20 07/16/20 19:00 07:00 Intake Total 585 ml Output Total 425 ml 1300 ml Balance -425 ml -715 ml Intake Free Water 50 ml IV Total 55 ml Tube Feeding 480 ml Output Urine Total 425 ml 800 ml Stool Total 500 ml # Bowel Movements 1 1 General Appearance: no acute distress HEENT: atraumatic Respiratory: lungs clear Cardiovascular: normal rate Abdomen: soft, non tender Laboratory Tests 07/16/20 06:50: White Blood Count 11.7H, Red Blood Count 3.49L, Hemoglobin 8.8L, Hematocrit 28.1L, Mean Corpuscular Volume 80, Mean Corpuscular Hemoglobin 25.3L, Mean Corpuscular Hemoglobin Concent 31.4L, Red Cell Distribution Width 17.4H, Platelet Count 578H, Mean Platelet Volume 6.0L, Neutrophils (%) (Auto) 64.8, Lymphocytes (%) (Auto) 22.9, Monocytes (%) (Auto) 9.8, Eosinophils (%) (Auto) 1.3, Basophils (%) (Auto) 1.2, Sodium Level 135L, Potassium Level 4.1, Chloride Level 102, Carbon Dioxide Level 24, Anion Gap 9, Blood Urea Nitrogen 26H, Creatinine 0.8, Estimat Glomerular Filtration Rate > 60, Glucose Level 107H, Calcium Level 9.3, Phosphorus Level 4.5, Magnesium Level 2.3, Total Bilirubin 0.4, Aspartate Amino Transf (AST/SGOT) 47H, Alanine Aminotransferase (ALT/SGPT) 43, Alkaline Phosphatase 181H, Total Protein 7.1, Albumin 1.7L, Globulin 5.4, Albumin/Globulin Ratio 0.3L Current Medications Medications (Trade) Dose Ordered Sig/Giovanny Route PRN Reason Start Time Stop Time Status Last Admin Dose Admin Acetaminophen (Tylenol) 650 mg Q4H PRN GT Mild Pain (Pain Scale 1-3) 07/09/20 10:15 08/08/20 10:14 Acetaminophen (Tylenol) 650 mg Q6H PRN GT Temp >100.5 07/09/20 01:30 08/08/20 01:29 07/15/20 08:16 Cefepime HCl 1 gm/ Dextrose 55 ml @ 110 mls/hr EVERY 12 HOURS IVPB 07/14/20 21:00 07/21/20 20:59 07/16/20 09:50 Famotidine (Pepcid) 20 mg BID GT 07/12/20 18:00 10/10/20 17:59 07/16/20 09:50 Metoprolol Tartrate (Lopressor) 12.5 mg Q12HR GT 07/10/20 21:00 10/08/20 20:59 07/16/20 09:50 Midodrine (Pro-Amatine) 10 mg Q8HR NG 07/12/20 14:30 10/10/20 14:29 07/16/20 13:20 Assessment/Plan Assessment/Plan 1. Anemia - Hgb better, s/p 2 units of PRBC - GI consulted - now off heparin - Stool OB negative 2. Hypoxia on arrival - now on RA saturating at 100% - continue monitor for hypoxia and provide supplemental oxygen as needed 3. COVID-19 negative 4. Sepsis, likely secondary to UTI, HCAP - now off Levofloxacin, Zosyn - UCx grew E. Coli - on Cefepime (07/14-) 5. ILA, electrolyte abnormality - nephro following 6. CHF exacerbation - seen by cardio - on IV Lasix 20 mg QD - EF 65% - CXR 07/11 no acute process 7. MRSA nasal - contact precaution 8. DVT ppx - Venous duplex US neg for DVT - on SCD Patient has been accepted back to SNF Plan to discharge if labs stable Currently discharge held given low-grade fever, leukocytosis, and infiltrates on chest x-ray The care for this patient was discussed with my supervising physician Time spent for this case was approximately 31 minutes Bandar Hansen Jul 16, 2020 14:51
[2020-07-16 16:00] VITALS: BP 105/67
--- NOTE | 2020-07-16 18:55 | NUR ---
NURSE HAND-OFF REPORT: Important Events on Shift:[] Patient Status: [] Diet: [] Pending Orders: [] Pending Results/Labs:[] Pending MD notification:[] Latest Vital Signs: Temperature 97.9 , Pulse 89 , B/P 105 /67 , Respiratory Rate 20 , O2 SAT 97 , Nasal Cannula, O2 Flow Rate 1.0 . Vital Sign Comment: [] EKG Rhythm: Sinus Rhythm Rhythm change?: N MD Notified?: N - MD Response: Latest Randolph Fall Score: 70 Fall Risk: High Risk Safety Measures: Call light Within Reach, Bed Alarm Zone 2, Side Rails Side Rails x3, Bed position Low and Locked. Fall Precautions: Yellow Socks Yellow Gown Door Sign Patient Fall Education Report given to [].
--- NOTE | 2020-07-16 19:00 | NUR ---
NURSE NOTES: Patient received from Viktor MCCORMICK. Patient is A/O x 1, and is confused. Patient is on room air with no signs of acute respiratory distress noted, satting at 98%. Patient has a GT, patent and flushed, no residual noted. Jevity 1.2 is running at 40 ml/hr. Patient has a 16 irish lea, patent and well draining to gravity. Patient has a 22 gauge IV on his right hand, s/l patent and flushed, no bleeding or erythema noted at this time. IV is wrapped in Kalix as patient removed IV in the past. Bed is in the lowest position, side rails up x3, bed alarm is on. Call light within reach. Will continue to monitor.
[2020-07-16 20:00] VITALS: BP 118/75
[2020-07-17] VITALS: BP 116/76
[2020-07-17 04:00] VITALS: BP 119/75
[2020-07-17] MEDS: Midodrine 10mg tab NG SCH ×2 (06:00→14:04)
[2020-07-17 06:26] LABS: EOSINOPHILS % (AUTO) 2.3 % (0.0-3.0); HEMATOCRIT 29.9 % (42.0-52.0); HEMOGLOBIN 9.4 G/DL (14.2-18.0); MEAN CORPUSCULAR VOLUME 80 FL (80-99); MONOCYTES % (AUTO) 8.5 % (1.0-10.0); NEUTROPHILS % (AUTO) 60.3 % (45.0-75.0); PLATELET COUNT 699 K/UL (150-450); RED BLOOD COUNT 3.72 M/UL (4.70-6.10); RED CELL DISTRIBUTION WIDTH 17.2 % (11.6-14.8); WHITE BLOOD COUNT 11.3 K/UL (4.8-10.8)
--- NOTE | 2020-07-17 06:48 | NUR ---
NURSE HAND-OFF REPORT: Important Events on Shift: Patient Status: No acute distress Diet: Jevity 1.2 @ 40 CC/hr Pending Orders: Pending Results/Labs: Pending MD notification: Latest Vital Signs: Temperature 97.8 , Pulse 96 , B/P 119 /75 , Respiratory Rate 20 , O2 SAT 97 , Nasal Cannula, O2 Flow Rate 1.0 . Vital Sign Comment: EKG Rhythm: Sinus Rhythm Rhythm change?: N MD Notified?: N - MD Response: Latest Randolph Fall Score: 70 Fall Risk: High Risk Safety Measures: Call light Within Reach, Bed Alarm Zone 2, Side Rails Side Rails x3, Bed position Low and Locked. Fall Precautions: Yellow Socks Yellow Gown Door Sign Patient Fall Education Report to be given. Addendum: 07/17/20 at 0737 by Annie Preciado RN Report given to CORRINE MCCORMICK.
[2020-07-17 07:14] LABS: ALANINE AMINOTRANSFERASE 60 U/L (12-78); ALBUMIN 1.7 G/DL (3.4-5.0); ALBUMIN/GLOBULIN RATIO 0.3 (1.0-2.7); ALKALINE PHOSPHATASE 193 U/L (46-116); ANION GAP 9 mmol/L (5-15); ASPARTATE AMINO TRANSFERASE 76 U/L (15-37); BILIRUBIN,TOTAL 0.3 MG/DL (0.2-1.0); BLOOD UREA NITROGEN 27 mg/dL (7-18); CALCIUM 8.9 MG/DL (8.5-10.1); CARBON DIOXIDE 24 MMOL/L (21-32); CHLORIDE 102 MMOL/L (98-107); CREATININE 0.8 MG/DL (0.55-1.30); PHOSPHORUS 3.6 MG/DL (2.5-4.9); POTASSIUM 4.5 MMOL/L (3.5-5.1); SODIUM 135 MMOL/L (136-145)
--- NOTE | 2020-07-17 07:38 | NUR ---
NURSE NOTES: Received patient in bed awake. No SOB or acute distress. IV line intact. FC intact, draining yellow colored urine. HOB elevated. Bed locked in low position. Call light within reach. Will continue plan of care.
--- NOTE | 2020-07-17 07:40 | NUR ---
CASE MANAGEMENT:REVIEW 07/17/20 SI: SEPSIS. PNA. UTI 97.8 96 20 119/75 97% ON RA WBC+11.3 IS: IV CEFEPIME Q12 PEPCID GT BID MIDODRINE GT Q8HRS LOPRESSOR GT Q12 : TELEMETRY STATUS DCP: FROM [facility]
[2020-07-17 08:00] VITALS: BP 113/73
--- NOTE | 2020-07-17 08:08 | Surgery Progress Note ---
Surgery Progress Note Subjective Additional Comments afebrile, HD stable labs noted micro reviewed comfortable appearing no n/v Objective Last 24 Hour Vital Signs Date Time Temp Pulse Resp B/P (MAP) Pulse Ox O2 Delivery O2 Flow Rate FiO2 07/17/20 04:00 97.8 96 20 119/75 (90) 97 07/17/20 03:07 94 07/17/20 00:00 97.3 94 20 116/76 (89) 97 07/16/20 23:11 92 07/16/20 21:00 Room Air 07/16/20 20:25 99 118/75 07/16/20 20:00 92 07/16/20 20:00 97.5 99 20 118/75 (89) 99 07/16/20 16:00 89 07/16/20 16:00 97.9 93 20 105/67 (80) 97 07/16/20 12:00 89 07/16/20 11:55 97.9 93 20 102/63 (76) 96 07/16/20 09:50 100 119/77 07/16/20 09:00 Room Air I&O Intake and Output 07/16/20 07/17/20 19:00 07:00 Intake Total 715 ml 520 ml Output Total 500 ml Balance 715 ml 20 ml Intake Free Water 180 ml 80 ml IV Total 55 ml Tube Feeding 480 ml 440 ml Output Urine Total 500 ml # Bowel Movements 1 Cardiovascular: RSR Respiratory: decreased breath sounds Abdomen: soft, non-tender, present bowel sounds, non-distended Extremities: no tenderness, no cyanosis Laboratory Tests Test 07/17/20 06:13 White Blood Count 11.3 K/UL (4.8-10.8) H Red Blood Count 3.72 M/UL (4.70-6.10) L Hemoglobin 9.4 G/DL (14.2-18.0) L Hematocrit 29.9 % (42.0-52.0) L Mean Corpuscular Volume 80 FL (80-99) Mean Corpuscular Hemoglobin 25.3 PG (27.0-31.0) L Mean Corpuscular Hemoglobin Concent 31.5 G/DL (32.0-36.0) L Red Cell Distribution Width 17.2 % (11.6-14.8) H Platelet Count 699 K/UL (150-450) H Mean Platelet Volume 6.5 FL (6.5-10.1) Neutrophils (%) (Auto) 60.3 % (45.0-75.0) Lymphocytes (%) (Auto) 28.0 % (20.0-45.0) Monocytes (%) (Auto) 8.5 % (1.0-10.0) Eosinophils (%) (Auto) 2.3 % (0.0-3.0) Basophils (%) (Auto) 1.0 % (0.0-2.0) Sodium Level 135 MMOL/L (136-145) L Potassium Level 4.5 MMOL/L (3.5-5.1) Chloride Level 102 MMOL/L (98-107) Carbon Dioxide Level 24 MMOL/L (21-32) Anion Gap 9 mmol/L (5-15) Blood Urea Nitrogen 27 mg/dL (7-18) H Creatinine 0.8 MG/DL (0.55-1.30) Estimat Glomerular Filtration Rate > 60 mL/min (>60) Glucose Level 99 MG/DL (74-106) Uric Acid 4.4 MG/DL (2.6-7.2) Calcium Level 8.9 MG/DL (8.5-10.1) Phosphorus Level 3.6 MG/DL (2.5-4.9) Magnesium Level 2.3 MG/DL (1.8-2.4) Total Bilirubin 0.3 MG/DL (0.2-1.0) Aspartate Amino Transf (AST/SGOT) 76 U/L (15-37) H Alanine Aminotransferase (ALT/SGPT) 60 U/L (12-78) Alkaline Phosphatase 193 U/L (46-116) H Total Protein 7.2 G/DL (6.4-8.2) Albumin 1.7 G/DL (3.4-5.0) L Globulin 5.5 g/dL Albumin/Globulin Ratio 0.3 (1.0-2.7) L Plan Problems: (1) Decubitus skin ulcer Assessment & Plan: Pt presented on admission with Contractures, Multiple Pressure Injuries .Pt is receiving Oxygen via NC. Both ears assessed and no evidence of Skin Breakdown noted. Full Thickness stage 4Pressure Injury L Buttocks (L)1.5cm x (W)1.4cm x (D) 0.2cm. Base of wound is 90% moist,sonia;10% slough. Non-Blanchable erythema along borders and periwound. DTPI Sacrococcygeal area (L)1.5cm x (W)0.8cm. Base of wound is maroon and indurated with surrounding non-blanchable erythema. DTPI L Trochanter(L)1.5cm x (W)0.8cm. Base of Pressure Injury is maroon and indurated.Surrounding Non-Blanchable erythema with delineated margins(L)8.5cm x (W)9cm. Unstageable Pressure Injury Plantar R Heel (L)2.5cm x (W)1.4cm. Stable dry eschar noted. Periwound is blanchable. Non-Blanchable erythema with fluctuance medial R Malleolus (L)4.5cm x (W)3cm. DTPI R Hallux (L)3cm x (W)2.4cm. Base of Pressure Injury is maroon and fluctuant. DTPI L lateral Malleolus(L)3cm x (W)3.5cm. Base of Pressure Injury is maroon and fluctuant. Tx.Plan: Cleanse wound L Buttocks with Saline. Apply TheraHoney. Apply Moisture Barrier Periwound. Cover with Optifoam drsg. Change Daily and prn. Apply Triad Paste to Sacrum. Cover with Optifoam drsg. Change every 3 days and prn. Apply Cavilon Skin Barrier to R and L trochanteric. Cover each site with Optifoam drsgs Change every 7 days and PRN. Apply Cavilon Skin BArrier to L Heel,Malleoli,Hallux. Cover each site with Optifoam drsgs. Change every 7 days and prn. Apply Cavilon Skin BArrier to R Heel , Malleoli ,Hallux. Cover each site with Optifoam drsgs. Change every 7 days and prn. Reposition at least every 2hours or as tolerated. Off-load heels with Pillow. APM/MARIA Mattress Overlay. (2) HCAP (healthcare-associated pneumonia) (3) Sepsis Assessment & Plan: lactic acidosis, elevated lft's abnormal labs renal insufficiency hypoxia -renal input appreciated -O2 supplement cxr noted cont abx steroids trend labs fluids thank you DAILY ESTIMATED NEEDS: Needs based on Wounds, 60kg 30-35kcal/kg kcals/kg 9221-5532 total kcals 1.5-2.0 g protein/kg 90-120 g total protein 25-30 mL/kg 4159-7372 total fluid mLs NUTRITION DIAGNOSIS: Increased kcal/prot needs R/T wound healing as evidenced by pt admitted w/ multiple wounds including stage 4 lt buttock wound and DTPI wounds @ sacrococcyx, L trochanter, R hallux, L lateral malleolus. CURRENT TF:NPO ENTERAL NUTRITION RECOMMENDATIONS: Osmolite 1.5 @ 55ml/hr x 24 hrs + Prosource 1pkt QD to provide 1320ml, 1980kcal, 83g +11g prot, 1006ml free water * As medically appropriate, initiate Osmolite 1.5 @ 15ml/hr x 6hrs * Advance 10ml q 4-6 hrs as tolerated to goal * Add Prosource 1pkt QD for additional 11g prot * HOB over 30 degrees/ water flush per MD ADDITIONAL RECOMMENDATIONS: * Daily calibrated bedscale wt: CHF dx, on lasix * Wound healing: Add Vit C 500mg BID, ZnSO4 220mg QD x 10 days TF @ goal will provide 100 % RDI Add El BID via PEG * Monitor lytes, replete as needed (4) UTI (urinary tract infection) Saleem Juan Jul 17, 2020 08:08
[2020-07-17] MEDS: Metoprolol Tartrate 12.5mg TAB GT SCH (08:46)
[2020-07-17] MEDS: Cefepime HCl 1 GM in D5W 55 ML IVPB SCH (08:48)
--- NOTE | 2020-07-17 09:24 | Cardiology Progress Note ---
Assessment/Plan Status Narrative SR, rate and SBP controlled. SBP improved after diuresis. Assessment/Plan 1. PNA and developing sepsis 2. CHF with elevated BNP BNP improved after diuresis with IV Lasix Bb for rate control 3. Dehydration and electrolyte imbalance 4. Sinus tachycardia 5. Anemia - acute on chronic Hgb improved 6. UTI 7. Aphasia 8. Dementia and h/o psych disorder Subjective Subjective No distress, disoriented. Lying in bed Objective Last 24 Hour Vital Signs Date Time Temp Pulse Resp B/P (MAP) Pulse Ox O2 Delivery O2 Flow Rate FiO2 07/17/20 08:46 101 113/73 07/17/20 08:00 97.9 101 19 113/73 (86) 98 07/17/20 04:00 97.8 96 20 119/75 (90) 97 07/17/20 03:07 94 07/17/20 00:00 97.3 94 20 116/76 (89) 97 07/16/20 23:11 92 07/16/20 21:00 Room Air 07/16/20 20:25 99 118/75 07/16/20 20:00 92 07/16/20 20:00 97.5 99 20 118/75 (89) 99 07/16/20 16:00 89 07/16/20 16:00 97.9 93 20 105/67 (80) 97 07/16/20 12:00 89 07/16/20 11:55 97.9 93 20 102/63 (76) 96 07/16/20 09:50 100 119/77 Intake and Output 07/16/20 07/17/20 19:00 07:00 Intake Total 715 ml 520 ml Output Total 500 ml Balance 715 ml 20 ml Intake Free Water 180 ml 80 ml IV Total 55 ml Tube Feeding 480 ml 440 ml Output Urine Total 500 ml # Bowel Movements 1 Laboratory Tests Test 07/17/20 06:13 White Blood Count 11.3 K/UL (4.8-10.8) H Red Blood Count 3.72 M/UL (4.70-6.10) L Hemoglobin 9.4 G/DL (14.2-18.0) L Hematocrit 29.9 % (42.0-52.0) L Mean Corpuscular Volume 80 FL (80-99) Mean Corpuscular Hemoglobin 25.3 PG (27.0-31.0) L Mean Corpuscular Hemoglobin Concent 31.5 G/DL (32.0-36.0) L Red Cell Distribution Width 17.2 % (11.6-14.8) H Platelet Count 699 K/UL (150-450) H Mean Platelet Volume 6.5 FL (6.5-10.1) Neutrophils (%) (Auto) 60.3 % (45.0-75.0) Lymphocytes (%) (Auto) 28.0 % (20.0-45.0) Monocytes (%) (Auto) 8.5 % (1.0-10.0) Eosinophils (%) (Auto) 2.3 % (0.0-3.0) Basophils (%) (Auto) 1.0 % (0.0-2.0) Sodium Level 135 MMOL/L (136-145) L Potassium Level 4.5 MMOL/L (3.5-5.1) Chloride Level 102 MMOL/L (98-107) Carbon Dioxide Level 24 MMOL/L (21-32) Anion Gap 9 mmol/L (5-15) Blood Urea Nitrogen 27 mg/dL (7-18) H Creatinine 0.8 MG/DL (0.55-1.30) Estimat Glomerular Filtration Rate > 60 mL/min (>60) Glucose Level 99 MG/DL (74-106) Uric Acid 4.4 MG/DL (2.6-7.2) Calcium Level 8.9 MG/DL (8.5-10.1) Phosphorus Level 3.6 MG/DL (2.5-4.9) Magnesium Level 2.3 MG/DL (1.8-2.4) Total Bilirubin 0.3 MG/DL (0.2-1.0) Aspartate Amino Transf (AST/SGOT) 76 U/L (15-37) H Alanine Aminotransferase (ALT/SGPT) 60 U/L (12-78) Alkaline Phosphatase 193 U/L (46-116) H Total Protein 7.2 G/DL (6.4-8.2) Albumin 1.7 G/DL (3.4-5.0) L Globulin 5.5 g/dL Albumin/Globulin Ratio 0.3 (1.0-2.7) L Microbiology Date/Time Source Procedure Growth Status 07/15/20 08:50 Blood Blood Culture - Preliminary NO GROWTH AFTER 24 HOURS Resulted 07/14/20 22:00 Indwelling Cath Urine Culture - Preliminary NO GROWTH Resulted Vanessa Edouard PA-C Jul 17, 2020 09:24
--- NOTE | 2020-07-17 09:50 | Neurology Progress Note ---
Interim History Interim History ROS Limited/Unobtainable: No Events: having intermittent fevers Objective Physical Exam Last Vital Signs Date Time Temp Pulse Resp B/P (MAP) Pulse Ox O2 Delivery O2 Flow Rate FiO2 07/17/20 08:46 101 113/73 07/17/20 08:00 97.9 19 98 07/16/20 21:00 Room Air 07/10/20 21:00 1.0 Laboratory Tests Test 07/17/20 06:13 White Blood Count 11.3 K/UL (4.8-10.8) H Red Blood Count 3.72 M/UL (4.70-6.10) L Hemoglobin 9.4 G/DL (14.2-18.0) L Hematocrit 29.9 % (42.0-52.0) L Mean Corpuscular Volume 80 FL (80-99) Mean Corpuscular Hemoglobin 25.3 PG (27.0-31.0) L Mean Corpuscular Hemoglobin Concent 31.5 G/DL (32.0-36.0) L Red Cell Distribution Width 17.2 % (11.6-14.8) H Platelet Count 699 K/UL (150-450) H Mean Platelet Volume 6.5 FL (6.5-10.1) Neutrophils (%) (Auto) 60.3 % (45.0-75.0) Lymphocytes (%) (Auto) 28.0 % (20.0-45.0) Monocytes (%) (Auto) 8.5 % (1.0-10.0) Eosinophils (%) (Auto) 2.3 % (0.0-3.0) Basophils (%) (Auto) 1.0 % (0.0-2.0) Sodium Level 135 MMOL/L (136-145) L Potassium Level 4.5 MMOL/L (3.5-5.1) Chloride Level 102 MMOL/L (98-107) Carbon Dioxide Level 24 MMOL/L (21-32) Anion Gap 9 mmol/L (5-15) Blood Urea Nitrogen 27 mg/dL (7-18) H Creatinine 0.8 MG/DL (0.55-1.30) Estimat Glomerular Filtration Rate > 60 mL/min (>60) Glucose Level 99 MG/DL (74-106) Uric Acid 4.4 MG/DL (2.6-7.2) Calcium Level 8.9 MG/DL (8.5-10.1) Phosphorus Level 3.6 MG/DL (2.5-4.9) Magnesium Level 2.3 MG/DL (1.8-2.4) Total Bilirubin 0.3 MG/DL (0.2-1.0) Aspartate Amino Transf (AST/SGOT) 76 U/L (15-37) H Alanine Aminotransferase (ALT/SGPT) 60 U/L (12-78) Alkaline Phosphatase 193 U/L (46-116) H Total Protein 7.2 G/DL (6.4-8.2) Albumin 1.7 G/DL (3.4-5.0) L Globulin 5.5 g/dL Albumin/Globulin Ratio 0.3 (1.0-2.7) L Neurologic Exam Objective General: pt is lying in bed no distress he is cachectic appearing Neuro: He is awake, is verbal is confused and disoriented has no insight to situation, Comprehension is not intact Cranial nerves II-XI tested. Tongue is midline PERRLA Hearing is intact. No involuntarty movements noted. Motor Exam: bilateral upper extremities 2/5, lower bilat extremities 2/5. He is weak Sensation not able intact. Gait not tested Impression/Recommendations Status: stable Diagnostic Impression IMAGING: CT of the chest was obtained on 07/08/2020, yesterday, which shows consolidation in the left upper lobe. EKG, sinus tachycardia. LABORATORY DATA: Reviewed Assessment and Rec's: 1. Encephalopathy Metabolic --> we do not know patient's baseline however it is stated in his records that he has diagnosis of dementia and Alzheimers Disease this needs to be considered --> Consider Imaging of brain with CT vs MRI if needed --> He also has a UTI infection which could make it worse and sepsis 2. Urinary tract infection. --> abx 3. Cognitive impairment. 4. Complicated past history of PDA pseudoaneurysm, status post embolization. 5. History of previous duodenal ulcer, status post perforation. --> wound care 6. Sepsis Thank you for allowing us to participate in patient's care plan of care was discussed with Dr. Song Stovall who agrees. Dawn Alcala NP Jul 17, 2020 09:50
[2020-07-17] MEDS ORDERED: CEFEPIME 11 GM/50 ML IV (11:17)
[2020-07-17] MEDS ORDERED: FERROUS SULFAT325 MG PEG (11:17)
--- NOTE | 2020-07-17 11:18 | Pulmonology Progress Note ---
Subjective ROS Limited/Unobtainable: No Interval Events: Hgb better Constitutional: Reports: fever, other - resolved HEENT: Repors: no symptoms Respiratory: Reports: no symptoms Cardiovascular: Reports: no symptoms Gastrointestinal/Abdominal: Reports: no symptoms Allergies: Coded Allergies: CEFPROZIL (Verified Allergy, Unknown, 07/08/20) Objective Last 24 Hour Vital Signs Date Time Temp Pulse Resp B/P (MAP) Pulse Ox O2 Delivery O2 Flow Rate FiO2 07/17/20 08:46 101 113/73 07/17/20 08:00 98 07/17/20 08:00 97.9 101 19 113/73 (86) 98 07/17/20 04:00 97.8 96 20 119/75 (90) 97 07/17/20 03:07 94 07/17/20 00:00 97.3 94 20 116/76 (89) 97 07/16/20 23:11 92 07/16/20 21:00 Room Air 07/16/20 20:25 99 118/75 07/16/20 20:00 92 07/16/20 20:00 97.5 99 20 118/75 (89) 99 07/16/20 16:00 89 07/16/20 16:00 97.9 93 20 105/67 (80) 97 07/16/20 12:00 89 07/16/20 11:55 97.9 93 20 102/63 (76) 96 Intake and Output 07/16/20 07/17/20 19:00 07:00 Intake Total 715 ml 520 ml Output Total 500 ml Balance 715 ml 20 ml Intake Free Water 180 ml 80 ml IV Total 55 ml Tube Feeding 480 ml 440 ml Output Urine Total 500 ml # Bowel Movements 1 General Appearance: no acute distress HEENT: atraumatic Respiratory: lungs clear Cardiovascular: normal rate Abdomen: soft, non tender Microbiology Date/Time Source Procedure Growth Status 07/15/20 08:50 Blood Blood Culture - Preliminary NO GROWTH AFTER 24 HOURS Resulted 07/14/20 22:00 Indwelling Cath Urine Culture - Preliminary NO GROWTH Resulted Laboratory Tests 07/17/20 06:13: White Blood Count 11.3H, Red Blood Count 3.72L, Hemoglobin 9.4L, Hematocrit 29.9L, Mean Corpuscular Volume 80, Mean Corpuscular Hemoglobin 25.3L, Mean Corpuscular Hemoglobin Concent 31.5L, Red Cell Distribution Width 17.2H, Platelet Count 699H, Mean Platelet Volume 6.5, Neutrophils (%) (Auto) 60.3, Lymphocytes (%) (Auto) 28.0, Monocytes (%) (Auto) 8.5, Eosinophils (%) (Auto) 2.3, Basophils (%) (Auto) 1.0, Sodium Level 135L, Potassium Level 4.5, Chloride Level 102, Carbon Dioxide Level 24, Anion Gap 9, Blood Urea Nitrogen 27H, Creatinine 0.8, Estimat Glomerular Filtration Rate > 60, Glucose Level 99, Uric Acid 4.4, Calcium Level 8.9, Phosphorus Level 3.6, Magnesium Level 2.3, Total Bilirubin 0.3, Aspartate Amino Transf (AST/SGOT) 76H, Alanine Aminotransferase (ALT/SGPT) 60, Alkaline Phosphatase 193H, Total Protein 7.2, Albumin 1.7L, Globulin 5.5, Albumin/Globulin Ratio 0.3L Current Medications Medications (Trade) Dose Ordered Sig/Giovanny Route PRN Reason Start Time Stop Time Status Last Admin Dose Admin Acetaminophen (Tylenol) 650 mg Q4H PRN GT Mild Pain (Pain Scale 1-3) 07/09/20 10:15 08/08/20 10:14 Acetaminophen (Tylenol) 650 mg Q6H PRN GT Temp >100.5 07/09/20 01:30 08/08/20 01:29 07/15/20 08:16 Cefepime HCl 1 gm/ Dextrose 55 ml @ 110 mls/hr EVERY 12 HOURS IVPB 07/14/20 21:00 07/21/20 20:59 07/17/20 08:48 Famotidine (Pepcid) 20 mg BID GT 07/12/20 18:00 10/10/20 17:59 07/17/20 08:46 Metoprolol Tartrate (Lopressor) 12.5 mg Q12HR GT 07/10/20 21:00 10/08/20 20:59 07/17/20 08:46 Midodrine (Pro-Amatine) 10 mg Q8HR NG 07/12/20 14:30 10/10/20 14:29 07/16/20 22:40 Assessment/Plan Assessment/Plan 1. Anemia - Hgb better, s/p 2 units of PRBC - GI consulted - now off heparin - Stool OB negative 2. Hypoxia on arrival - now on RA saturating at 100% - continue monitor for hypoxia and provide supplemental oxygen as needed 3. COVID-19 negative 4. Sepsis, likely secondary to UTI, HCAP - now off Levofloxacin, Zosyn - UCx grew E. Coli - on Cefepime (07/14-) -> will continue Cefepime upon dc x7 days 5. ILA, electrolyte abnormality - nephro following 6. CHF exacerbation - seen by cardio - on IV Lasix 20 mg QD - EF 65% - CXR 07/11 no acute process 7. MRSA nasal - contact precaution 8. DVT ppx - Venous duplex US neg for DVT - on SCD Patient has been accepted back to SNF Plan to discharge if labs stable DC today on cefepime x7 days from today The care for this patient was discussed with my supervising physician Time spent for this case was approximately 31 minutes Bandar Hansen Jul 17, 2020 11:18
--- NOTE | 2020-07-17 11:32 | NUR ---
*-*DISCHARGE PLANNED*-* PATIENT HAS BEEN ACCEPTED AND WILL BE DISCHARGED BACK TO: [facility] P: [phone] FOR NURS3E TO NURSE REPORT ROOM# 19.[facility] TRANSPORTATION SET FOR 1:30PM S/W GINA [id number]. PLACED A CALL TO PATIENTS [facility] BACK, NO ANSWER, LEFT VOICE MESSAGE.
--- NOTE | 2020-07-17 11:36 | Infectious Diseases Prog Note ---
Assessment/Plan Assessment/Plan A; Pneumonia Fever resolved E. coli UTI Anemia Pressure ulcers MRSA carrier CHF Dementia, P: continue Cefepime Subjective ROS Limited/Unobtainable: Yes Constitutional: Denies: fever Allergies: Coded Allergies: CEFPROZIL (Verified Allergy, Unknown, 07/08/20) Objective Last 24 Hour Vital Signs Date Time Temp Pulse Resp B/P (MAP) Pulse Ox O2 Delivery O2 Flow Rate FiO2 07/17/20 08:46 101 113/73 07/17/20 08:00 98 07/17/20 08:00 97.9 101 19 113/73 (86) 98 07/17/20 04:00 97.8 96 20 119/75 (90) 97 07/17/20 03:07 94 07/17/20 00:00 97.3 94 20 116/76 (89) 97 07/16/20 23:11 92 07/16/20 21:00 Room Air 07/16/20 20:25 99 118/75 07/16/20 20:00 92 07/16/20 20:00 97.5 99 20 118/75 (89) 99 07/16/20 16:00 89 07/16/20 16:00 97.9 93 20 105/67 (80) 97 07/16/20 12:00 89 07/16/20 11:55 97.9 93 20 102/63 (76) 96 Height (Feet): 5 Height (Inches): 6.00 Weight (Pounds): 150 HEENT: mucous membranes moist Respiratory/Chest: lungs clear Cardiovascular: tachycardia Abdomen: soft, non tender Extremities: no edema Neurologic/Psychiatric: alert, responsive, disoriented Microbiology Date/Time Source Procedure Growth Status 07/15/20 08:50 Blood Blood Culture - Preliminary NO GROWTH AFTER 24 HOURS Resulted 07/14/20 22:00 Indwelling Cath Urine Culture - Preliminary NO GROWTH Resulted Laboratory Tests Test 07/17/20 06:13 White Blood Count 11.3 K/UL (4.8-10.8) H Red Blood Count 3.72 M/UL (4.70-6.10) L Hemoglobin 9.4 G/DL (14.2-18.0) L Hematocrit 29.9 % (42.0-52.0) L Mean Corpuscular Volume 80 FL (80-99) Mean Corpuscular Hemoglobin 25.3 PG (27.0-31.0) L Mean Corpuscular Hemoglobin Concent 31.5 G/DL (32.0-36.0) L Red Cell Distribution Width 17.2 % (11.6-14.8) H Platelet Count 699 K/UL (150-450) H Mean Platelet Volume 6.5 FL (6.5-10.1) Neutrophils (%) (Auto) 60.3 % (45.0-75.0) Lymphocytes (%) (Auto) 28.0 % (20.0-45.0) Monocytes (%) (Auto) 8.5 % (1.0-10.0) Eosinophils (%) (Auto) 2.3 % (0.0-3.0) Basophils (%) (Auto) 1.0 % (0.0-2.0) Sodium Level 135 MMOL/L (136-145) L Potassium Level 4.5 MMOL/L (3.5-5.1) Chloride Level 102 MMOL/L (98-107) Carbon Dioxide Level 24 MMOL/L (21-32) Anion Gap 9 mmol/L (5-15) Blood Urea Nitrogen 27 mg/dL (7-18) H Creatinine 0.8 MG/DL (0.55-1.30) Estimat Glomerular Filtration Rate > 60 mL/min (>60) Glucose Level 99 MG/DL (74-106) Uric Acid 4.4 MG/DL (2.6-7.2) Calcium Level 8.9 MG/DL (8.5-10.1) Phosphorus Level 3.6 MG/DL (2.5-4.9) Magnesium Level 2.3 MG/DL (1.8-2.4) Total Bilirubin 0.3 MG/DL (0.2-1.0) Aspartate Amino Transf (AST/SGOT) 76 U/L (15-37) H Alanine Aminotransferase (ALT/SGPT) 60 U/L (12-78) Alkaline Phosphatase 193 U/L (46-116) H Total Protein 7.2 G/DL (6.4-8.2) Albumin 1.7 G/DL (3.4-5.0) L Globulin 5.5 g/dL Albumin/Globulin Ratio 0.3 (1.0-2.7) L Current Medications Medications (Trade) Dose Ordered Sig/Giovanny Route PRN Reason Start Time Stop Time Status Last Admin Dose Admin Acetaminophen (Tylenol) 650 mg Q4H PRN GT Mild Pain (Pain Scale 1-3) 07/09/20 10:15 08/08/20 10:14 Acetaminophen (Tylenol) 650 mg Q6H PRN GT Temp >100.5 07/09/20 01:30 08/08/20 01:29 07/15/20 08:16 Cefepime HCl 1 gm/ Dextrose 55 ml @ 110 mls/hr EVERY 12 HOURS IVPB 07/14/20 21:00 07/21/20 20:59 07/17/20 08:48 Famotidine (Pepcid) 20 mg BID GT 07/12/20 18:00 10/10/20 17:59 07/17/20 08:46 Metoprolol Tartrate (Lopressor) 12.5 mg Q12HR GT 07/10/20 21:00 10/08/20 20:59 07/17/20 08:46 Midodrine (Pro-Amatine) 10 mg Q8HR NG 07/12/20 14:30 10/10/20 14:29 07/16/20 22:40 Filemon Morejon MD Jul 17, 2020 11:36
--- NOTE | 2020-07-17 11:42 | Nephrology Progress Note ---
Assessment/Plan Problem List: (1) ILA (acute kidney injury) (2) Dehydration (3) Sepsis (4) Anemia (5) Hypercalcemia Assessment Acute renal failure Dehydration, hypercalcemia Hyperkalemia Anemia, low MCV Sepsis, UTI, healthcare associated pneumonia Plan July 17: Labs reviewed. Renal parameters, serum calcium within acceptable range. Serum sodium 135 stable July 16: Labs reviewed. Renal parameters are stable. Serum calcium lowering. Will observe serum sodium 135. July 15: Labs reviewed. Renal parameters stable. Serum calcium lowering. Continue per current management. July 14: Labs reviewed. Serum calcium elevated, even more when corrected for low albumin. Pamidronate 60 mg IV given. Continue to monitor electrolytes, calcium, phosphorus, magnesium. Continue per consultants. July 13: Labs reviewed. Hemoglobin lower. Renal parameters stable serum sodium 134. Continue to monitor electrolytes and hemoglobin and hematocrit. Continue per consultants. July 12: Labs reviewed. Hemoglobin 10.7. Electrolytes and renal parameters within normal limits. Continue as is. IV fluid and IV Lasix discontinued. Albumin bolus given. As needed midodrine given. July 11: Labs reviewed. Hemoglobin higher after transfusion. Electrolytes and renal parameters within normal limits. Continue per current treatment plan. Blood pressure stable July 10: Creatinine of 1.4 down to 1.1. Electrolytes noted and abnormalities addressed. Patient on 50 cc an hour IV fluid. Remains NPO. Significant drop in hemoglobin. Transfusion ordered by consultants. Continue to monitor renal parameters and electrolytes. 2D echo results noted. Ejection fraction 65%. Albumin bolus given. Previously: Slow hydrate Monitor renal parameters and electrolytes Anemia work-up Antibiotics Avoid nephrotoxic's Monitor urine output Per orders Subjective ROS Limited/Unobtainable: Yes Objective Objective Last 24 Hour Vital Signs Date Time Temp Pulse Resp B/P (MAP) Pulse Ox O2 Delivery O2 Flow Rate FiO2 07/17/20 08:46 101 113/73 07/17/20 08:00 98 07/17/20 08:00 97.9 101 19 113/73 (86) 98 07/17/20 04:00 97.8 96 20 119/75 (90) 97 07/17/20 03:07 94 07/17/20 00:00 97.3 94 20 116/76 (89) 97 07/16/20 23:11 92 07/16/20 21:00 Room Air 07/16/20 20:25 99 118/75 07/16/20 20:00 92 07/16/20 20:00 97.5 99 20 118/75 (89) 99 07/16/20 16:00 89 07/16/20 16:00 97.9 93 20 105/67 (80) 97 07/16/20 12:00 89 07/16/20 11:55 97.9 93 20 102/63 (76) 96 Intake and Output 07/16/20 07/17/20 19:00 07:00 Intake Total 715 ml 520 ml Output Total 500 ml Balance 715 ml 20 ml Intake Free Water 180 ml 80 ml IV Total 55 ml Tube Feeding 480 ml 440 ml Output Urine Total 500 ml # Bowel Movements 1 Current Medications Medications (Trade) Dose Ordered Sig/Giovanny Route PRN Reason Start Time Stop Time Status Last Admin Dose Admin Acetaminophen (Tylenol) 650 mg Q4H PRN GT Mild Pain (Pain Scale 1-3) 07/09/20 10:15 08/08/20 10:14 Acetaminophen (Tylenol) 650 mg Q6H PRN GT Temp >100.5 07/09/20 01:30 08/08/20 01:29 07/15/20 08:16 Cefepime HCl 1 gm/ Dextrose 55 ml @ 110 mls/hr EVERY 12 HOURS IVPB 07/14/20 21:00 07/21/20 20:59 07/17/20 08:48 Famotidine (Pepcid) 20 mg BID GT 07/12/20 18:00 10/10/20 17:59 07/17/20 08:46 Metoprolol Tartrate (Lopressor) 12.5 mg Q12HR GT 07/10/20 21:00 10/08/20 20:59 07/17/20 08:46 Midodrine (Pro-Amatine) 10 mg Q8HR NG 07/12/20 14:30 10/10/20 14:29 07/16/20 22:40 Laboratory Tests 07/17/20 06:13: White Blood Count 11.3H, Red Blood Count 3.72L, Hemoglobin 9.4L, Hematocrit 29.9L, Mean Corpuscular Volume 80, Mean Corpuscular Hemoglobin 25.3L, Mean Corpuscular Hemoglobin Concent 31.5L, Red Cell Distribution Width 17.2H, Platelet Count 699H, Mean Platelet Volume 6.5, Neutrophils (%) (Auto) 60.3, Lymphocytes (%) (Auto) 28.0, Monocytes (%) (Auto) 8.5, Eosinophils (%) (Auto) 2.3, Basophils (%) (Auto) 1.0, Sodium Level 135L, Potassium Level 4.5, Chloride Level 102, Carbon Dioxide Level 24, Anion Gap 9, Blood Urea Nitrogen 27H, Creatinine 0.8, Estimat Glomerular Filtration Rate > 60, Glucose Level 99, Uric Acid 4.4, Calcium Level 8.9, Phosphorus Level 3.6, Magnesium Level 2.3, Total Bilirubin 0.3, Aspartate Amino Transf (AST/SGOT) 76H, Alanine Aminotransferase (ALT/SGPT) 60, Alkaline Phosphatase 193H, Total Protein 7.2, Albumin 1.7L, Tona bulin 5.5, Albumin/Globulin Ratio 0.3L Height (Feet): 5 Height (Inches): 6.00 Weight (Pounds): 150 General Appearance: no apparent distress, lethargic Cardiovascular: tachycardia Respiratory/Chest: decreased breath sounds Abdomen: distended Kyaw Leal MD Jul 17, 2020 11:42
[2020-07-17 12:00] VITALS: BP 104/68
--- NOTE | 2020-07-17 12:54 | NUR ---
INSURANCE CLINICALS/REVIEW FAXED TO [facility] [phone] FX [phone].
--- NOTE | 2020-07-17 14:30 | NUR ---
NURSE NOTES: Patient discharged to [facility] in stable condition, report given to Erika MCCORMICK. No belongings. No new skin issues. Gtube clamped. IV line intact on right wrist g22. FC left intact. Transported via ambulance accompanied by ambulance personnel. Family Veronica made aware, verbalized understanding. youth nutritional monitor removed. ID band removed.
[2020-07-17] MEDS ORDERED: NS 275ml ONE (15:03)
[2020-07-17] MEDS ORDERED: Tubing IV Secondary IV ONE (15:03)
--- NOTE | 2020-07-18 16:49 | Discharge Summary ---
Discharge Summary Discharge Summary _ Date of admission: 07/08/2020 Date of discharge: 07/17/[address] Alvarez History of Present Illness and Brief Hospital Course Mr. Roberts is a 69-year-old male with past medical history of Alzheimer's dementia, malnutrition, duodenal perforation, PDA pseudoaneurysm rupture, status post stent, complicated by hemoperitoneum, hemorrhagic shock, and pancreatitis, who was sent to ED from SNF for evaluation of fever and abnormal vitals. Patient was noted to be minimally verbal at baseline and further history was limited. Patient was reported to test negative for COVID-19 as of 07/01/2020. Of note, patient was recently admitted to [facility] in late May 2020 with a diagnosis of shock. Given signs of UTI and sepsis, he was started on broad-spectrum antibiotics and was admitted to the hospital for further management. Patient was found to be hypoxic on arrival and was placed on low-flow supplemental oxygen. His saturation subsequently improved and was able to tolerate room air until the day of his discharge. On admission day 2, patient was found to be severely anemic without signs of active bleeding. Patient was transfused with 2 units of PRBC. The stool occult blood test was negative. His H&H remained stable until the day of discharge. Given signs of UTI, he was started on broad-spectrum antibiotics. Later, his urine culture grew E. coli. His antibiotic was adjusted accordingly. A repeat chest x-ray revealed worsening infiltrate in the right infrahilar region. Patient was continued on antibiotics. Given signs of acute renal failure, dehydration, and electrolyte imbalance, patient was evaluated by a director medical science as well. His electrolytes were replaced as needed. Renal parameters were closely monitored. Given his history of CHF, patient was started on Lasix. His BNP subsequently improved. Throughout his hospitalization, patient's condition improved over time. Patient no longer had fever and his labs were grossly within normal limits. Patient was medically stable for discharge on 07/17/2020. Consultants: Cardiology NADEEM Rodríguez Neurology Dawn Alcala NP Infectious disease Dr. Noel Surgery Dr. Juan Nephrology Dr. Ayon Discharge Condition Improved and stable Final diagnoses Healthcare associated pneumonia Sepsis CHF Dehydration/electrolyte imbalance Sinus tachycardia Microcytic anemia E. coli UTI Aphasia Dementia Pressure ulcers MRSA carrier Acute renal failure Hypercalcemia Metabolic encephalopathy I have been assigned to dictate discharge summary for this account. Bandar Hansen Jul 18, 2020 16:49
== END 2020-07-17 15:04 | DRG 871 ==
LOC: EDBD 19:41 → EMR 20:00 → 2E 22:42 → EDBEDREQ 23:33
PROC: 30233N1 Transfusion of Nonautologous Red Blood Cells into Peripheral Vein, Percutaneous Approach (ICD-10-PCS; principal; 2020-07-10)
DX: A41.9 Sepsis, unspecified organism (principal); L89.324 Pressure ulcer of left buttock, stage 4; J18.9 Pneumonia, unspecified organism; G93.41 Metabolic encephalopathy; N39.0 Urinary tract infection, site not specified; N17.9 Acute kidney failure, unspecified; R47.01 Aphasia; Z43.1 Encounter for attention to gastrostomy; L89.610 Pressure ulcer of right heel, unstageable; Y95 Nosocomial condition; Z88.8 Allergy status to other drugs, medicaments and biological substances; E78.5 Hyperlipidemia, unspecified; G30.9 Alzheimer's disease, unspecified; F02.80 Dementia in other diseases classified elsewhere, unspecified severity, without behavioral disturbance, psychotic disturbance, mood disturbance, and anxiety; R09.02 Hypoxemia; D50.9 Iron deficiency anemia, unspecified; E86.0 Dehydration; B96.20 Unspecified Escherichia coli [E. coli] as the cause of diseases classified elsewhere; Z22.322 Carrier or suspected carrier of Methicillin resistant Staphylococcus aureus; E83.52 Hypercalcemia; I50.9 Heart failure, unspecified; L89.156 Pressure-induced deep tissue damage of sacral region; L89.226 Pressure-induced deep tissue damage of left hip; L89.896 Pressure-induced deep tissue damage of other site; L89.526 Pressure-induced deep tissue damage of left ankle; Z20.822 Contact with and (suspected) exposure to COVID-19
CPT/HCPCS: 36415; 71045; 71275; 80048; 80053; 80061; 81003; 82270; 82550; 82607; 82728; 82746; 82977; 83036; 83540; 83550; 83605; 83615; 83690; 83735; 83880; 84100; 84300; 84443; 84484; 84550; 85007; 85025; 85379; 85610; 85730; 86140; 86850; 86900; 86901; 86920; 87040; 87081; 87086; 87181; 93306; 93970; 96361; 96365; 99291; J2430